=== PATIENT | female | born 1970 | race Caucasian/White ===

== ENCOUNTER 2018-11-05 19:07 | Emergency (ER) | payer OTHER, SELFPAY ==
[2018-10-18 15:07] VITALS: BMI 28.5
[2018-11-05 19:07] VITALS: BP 132/81; PULSE 74; RESP 16; TEMP 36.9; O2SAT 95; BMI 28.8
--- NOTE | 2018-11-05 20:21 | ED.VISSUMM ---
- ER Visit Summary Date of Service: 11/05/18 Chief Complaint: Finger injury History of Present Illness: The patient is a 48 F who was cutting onions when she cut her left index finger. She is unable to control the bleeding. Physical Examination: Afebrile vital signs stable There is a 1 cm x 3 mm superficial skin avulsion to the lateral aspect of the dorsum of the distal left index finger. There is venous bleeding. Emergency Department Course and Treatment: A tourniquet was used to control the bleeding. There is obvious that there is 2 small venules that needed to be cauterized. I attempted cauterized using silver nitrate but the patient jerked her hand away with the first application stating that she would not go through that again. Therefore Gelfoam was applied and dressing on top of that. She is observed. The dressing was taken down but leaving the Gelfoam in place and redressed. It appears that bleeding is controlled. She will be discharged home good local wound care. To remove the Gelfoam in 48 hours. Impression: 1. 1 cm skin avulsion to the left index finger This note was generated with trustedsafe dictation software. It may contain incorrect words, spelling, and punctuation that were not noted in review of the chart prior to signing ED Disposition - Plan for ED Patient: Disposition: Home or Assisted Living Chief Complaint: Laceration Instructions: ED Avulsion Dermal Referrals: Shawanda Shields MD [Primary Care Provider] - As Needed Additional Instructions: Please keep the dressing in place for 48 hours. After which time gently may remove the dressing. At that point you may use bacitracin ointment and Band-Aid. Monitor for infection.
--- NOTE | 2018-11-05 20:21 | ED.RN ---
Dressing taken down to foam; no active bleeding noted. Re-dressed with telfa and gauze wrap. Pt tolerated well.
--- NOTE | 2018-11-05 20:24 | ED.DCSUM_ITS ---
- ER Visit Summary Date of Service: 11/05/18 Chief Complaint: Finger injury History of Present Illness: The patient is a 48 F who was cutting onions when she cut her left index finger. She is unable to control the bleeding. Physical Examination: Afebrile vital signs stable There is a 1 cm x 3 mm superficial skin avulsion to the lateral aspect of the dorsum of the distal left index finger. There is venous bleeding. Emergency Department Course and Treatment: A tourniquet was used to control the bleeding. There is obvious that there is 2 small venules that needed to be cauterized. I attempted cauterized using silver nitrate but the patient jerked her hand away with the first application stating that she would not go through that again. Therefore Gelfoam was applied and dressing on top of that. She is observed. The dressing was taken down but leaving the Gelfoam in place and redressed. It appears that bleeding is controlled. She will be discharged home good local wound care. To remove the Gelfoam in 48 hours. Impression: 1. 1 cm skin avulsion to the left index finger This note was generated with [employer] dictation software. It may contain incorrect words, spelling, and punctuation that were not noted in review of the chart prior to signing ED Disposition - Plan for ED Patient: Disposition: Home or Assisted Living Chief Complaint: Laceration Instructions: ED Avulsion Dermal Referrals: Shawanda Shields MD [Primary Care Provider] - As Needed Additional Instructions: Please keep the dressing in place for 48 hours. After which time gently may remove the dressing. At that point you may use bacitracin ointment and Band- Aid. Monitor for infection.
[2018-11-05 20:34] VITALS: BP 132/92; PULSE 70; RESP 15
== END 2018-11-05 20:35 | disposition home or self-care (01) ==
PROVIDERS: Emergency Provider Emergency Medicine; Family Provider Internal Medicine; PCP Internal Medicine
DX: S61.201A Unspecified open wound of left index finger without damage to nail, initial encounter (principal); W45.8XXA Other foreign body or object entering through skin, initial encounter; Y93.G9 Activity, other involving cooking and grilling; Y92.9 Unspecified place or not applicable; Y99.9 Unspecified external cause status; Z72.0 Tobacco use
CPT/HCPCS: 99282

== ENCOUNTER → 2019-10-22 09:44 | Outpatient (CLI) | payer OTHER, SELFPAY ==
[2019-10-22 09:23] VITALS: BMI 28.8
[2019-10-22 13:06] LABS: Absolute Lymphocyte Count 2.26 X10^3/uL (0.83-4.51); Absolute Neutrophil Count 4.8 X10^3/uL (2.0-7.7); Basophil# 0.05 X10^3/uL; Basophil% 0.6 % (0-1); Eosinophil# 0.12 X10^3/uL; Eosinophils% 1.5 % (0-5); Hematocrit 45.3 % (37-47); Hemoglobin 15.1 g/dL (12.0-15.0); Lymphocyte # 2.26 X10^3/ul (4.0); Lymphocyte % 29.1 % (19-41); Mean Corp Hgb Conc 33.3 g/dL (32-36); Mean Corpuscular Hgb 28.3 pg (27.0-32.0); Mean Platelet Vol. 10.2 fl (6.2-12.0); Monocyte# 0.52 X10^3/uL; Monocyte% 6.7 % (0-10); NRBC Flagged by Analyzer 0 % (0-5); Neutrophil # 4.79 X10^3/uL (2.7-7.7); Neutrophil % 61.7 % (47-70); Platelet Count 284 K/mm3 (150-450); RBC Distribution Width CV 13.2 % (11.6-14.6); RBC Distribution Width SD 40.5 fl (35.1-43.9); Red Blood Count 5.33 M/mm3 (4.2-5.4); White Blood Count 7.8 K/mm3 (4.4-11.0)
[2019-10-22 13:43] LABS: ALB/GLOB Ratio 0.9 RATIO (0.9-2.4); AST(SGOT) 24 U/L (15-37); Alanine Aminotransfer ALT/SGPT 45 U/L (13-56); Albumin, Serum 3.6 g/dL (3.2-5.0); Alkaline Phosphatase 65 U/L (45-117); Anion Gap 5 (5-15); BUN 13 mg/dL (7-18); BUN/Creat Ratio 13.7 RATIO (10-20); Calcium,Total 9.3 mg/dL (8.5-10.1); Chloride 107 mmol/L (98-107); Creatinine, Serum 0.95 mg/dL (0.55-1.02); EST Glomerular Filtration Rate 67 mL/min (>60); Est Glom Filt Rate - Afr Amer 81 mL/min (>60); Globulin 3.8 g/dL (2.2-4.2); Glucose 90 mg/dL (74-106); Potassium 3.8 mmol/L (3.5-5.1); Protein, Total 7.4 g/dL (6.4-8.2); Sodium Level 138 mmol/L (136-145)
== END ==
PROVIDERS: Family Provider Internal Medicine; PCP Internal Medicine; Visit Provider Internal Medicine
DX: K21.9 Gastro-esophageal reflux disease without esophagitis (principal)
CPT/HCPCS: 36415; 80053; 85025

== ENCOUNTER → 2020-02-21 13:00 | Outpatient (CLI) | payer OTHER, SELFPAY ==
[2020-01-14 14:46] VITALS: BMI 28.8
[2020-02-19 17:51] VITALS: BMI 28.8
--- NOTE | 2020-02-21 14:18 | PFTCOMP ---
COMPLETE PULMONARY FUNCTION TEST INTERPRETATION Brief HPI: Patient is a 49 year old female, currently under the care of Dr. Shields, who presents to [facility] for complete pulmonary function tests secondary to diagnosis of dyspnea. Respiratory therapist reports good effort and reproducible results. Interpretation: Forced expiration spirometry shows no large airways obstructive ventilatory defect with an FEV1 of 84% predicted. There is no significant bronchodilator response by strict ATS criteria. Spirograms are of good quality and plateau normally. The respiratory flow volume loop shows a normal pattern. Lung volumes by body plethysmography show a reduced total lung capacity at 3.94 L, 79% predicted. All other lung volumes are reduced symmetrically. Diffusion capacity by carbon monoxide is at the lower limit of normal at 75% predicted. The airway resistance is elevated. No previous pulmonary function tests were available for review. Impression: Mild restrictive ventilatory defect with a symmetric reduction diffusion capacity. Consider chest imaging if not done previously.
== END ==
PROVIDERS: PCP Internal Medicine; Referring Provider Internal Medicine; Visit Provider Internal Medicine
DX: R06.02 Shortness of breath (principal); Z72.0 Tobacco use
CPT/HCPCS: 94060; 94726; 94729

== ENCOUNTER → 2020-02-29 14:47 | Outpatient (CLI) | payer OTHER, SELFPAY ==
[2020-02-22 09:33] VITALS: BMI 28.8
--- NOTE | 2020-02-29 14:49 | CT_ITS ---
STUDY: CT CHEST WITH CONTRAST REASON FOR EXAM: Female, 49 years old. Shortness of breath x 5 months, denies cough or chest pain. Abnormal PFT. RADIATION DOSAGE (If Supplied By Facility): CTDIvol = ( 13.24 ) mGy, DLP = ( 461.18 ) mGycm TECHNIQUE: Transaxial imaging was performed following intravenous administration of IV 100mL Isovue-370. Multiplanar coronal and sagittal images were reformatted. Individualized dose optimization techniques were used for this CT. COMPARISON: 2017 FINDINGS: The lungs are normal. There is no demonstrated pleural abnormality. Normal heart and pericardium. Normal mediastinum. Normal hilar regions. Normal enhanced pulmonary arteries. Normal aorta arch and descending thoracic aorta. Normal osseous structures. Limited cuts through the upper abdomen show a retrocardiac hiatal hernia CT/Chest WITH Contrast IMPRESSION: No acute pulmonary process, no suspicious groundglass opacifications, or suspicious noncalcified mass or nodule Electronically Signed: Luis De La Cruz MD at 16:29 EDT , Service support ,
== END ==
PROVIDERS: PCP Internal Medicine; Referring Provider Internal Medicine; Visit Provider Internal Medicine
DX: R06.02 Shortness of breath (principal); R94.2 Abnormal results of pulmonary function studies
CPT/HCPCS: 71260; Q9967

== ENCOUNTER → 2020-03-04 11:41 | Outpatient (CLI) | payer OTHER, SELFPAY ==
[2020-03-04 08:35] VITALS: BMI 28.8
[2020-03-04 13:40] LABS: Erythrocyte Sedimentation Rate 4 mm/hr (0-20)
[2020-03-04 13:51] LABS: CRP 5.78 mg/L (0.0-3.0); Rheumatoid Factor < 10.0 IU/mL (<15)
[2020-03-06 11:38] LABS: CCP IgG Antibodies 9 units (0-19)
== END ==
PROVIDERS: PCP Internal Medicine; Referring Provider Internal Medicine; Visit Provider Internal Medicine
DX: M19.90 Unspecified osteoarthritis, unspecified site (principal)
CPT/HCPCS: 85652; 86140; 86200; 86431

== ENCOUNTER → 2020-04-01 | Outpatient (CLI) | payer OTHER, SELFPAY ==
[2020-04-01 13:29] VITALS: BMI 29.7
[2020-04-07 20:03] LABS: HPV APTIMA, High Risk Negative (Negative)
== END | disposition home or self-care (01) ==
LOC: LABSPEC 16:00
PROVIDERS: PCP Internal Medicine; Referring Provider Nurse Practitioner Women's Health; Visit Provider Nurse Practitioner Women's Health
DX: Z12.4 Encounter for screening for malignant neoplasm of cervix (principal)
CPT/HCPCS: 87624; 88175; G0145

== ENCOUNTER → 2020-05-13 17:00 | Outpatient (CLI) | payer OTHER, SELFPAY ==
[2019-11-20 15:24] VITALS: BMI 28.8
[2020-04-01 13:29] VITALS: BMI 29.7
--- NOTE | 2020-05-13 16:49 | BI_ITS ---
MAMMOGRAPHY - BILATERAL SCREENING REASON FOR EXAM: Female, 49 years old. Routine annual screening examination. PERTINENT HISTORY: Non-contributory. TECHNIQUE: Digital bilateral breast nicole (3D mammographic acquisition) in the CC and MLO projections. 2-D mediolateral oblique (MLO) and craniocaudad (CC) views of both breasts were obtained. CAD: Full Field Digital Mammography with Computer Added Detection was performed. COMPARISON: Comparison is made with prior outside examination dated 09/20/2013. FINDINGS: Breast Composition: The breasts are heterogeneously dense, which may obscure small masses. There are no dominant masses or suspicious calcifications. Stable benign appearing bilateral axillary lymph nodes. No other significant abnormalities are identified. There has been no significant change since the prior study. BI/SCREEN MAMM (CAD) W/NICOLE BILAT IMPRESSION: Stable bilateral screening mammogram. Yearly follow-up mammogram recommended. (A) ASSESSMENT CATEGORY: BIRADS Category 2: Benign. A letter regarding these results will be sent to the patient by the facility within 30 days. Approximately 10% of breast cancers are not detected by mammography. A normal mammogram should not delay biopsy of a clinically suspicious abnormality. [id number] Electronically Signed: Ilya Alexander, at 8:49 EDT , Service support ,
== END ==
PROVIDERS: PCP Internal Medicine; Referring Provider Internal Medicine; Visit Provider Internal Medicine
DX: Z12.31 Encounter for screening mammogram for malignant neoplasm of breast (principal)
CPT/HCPCS: 77063; 77067

== ENCOUNTER 2020-06-20 06:54 | Emergency (ER) | payer OTHER, SELFPAY ==
[2020-06-19 21:16] VITALS: BMI 29.7
[2020-06-20 06:55] VITALS: BP 128/68; PULSE 70; RESP 16; TEMP 36.2; O2SAT 99; BMI 30.4
--- NOTE | 2020-06-20 07:09 | EKG12_ITS ---
Test Reason : CP Blood Pressure : / mmHG Vent. Rate : 065 BPM Atrial Rate : 065 BPM P-R Int : 156 ms QRS Dur : 076 ms QT Int : 414 ms P-R-T Axes : 056 032 068 degrees QTc Int : 430 ms Normal sinus rhythm with sinus arrhythmia Normal ECG Confirmed by KARISHMA CEDENO, JANAK ([id number]), department editor ROSI VILLANUEVA ([id number]) on 06/23/2020 1:10:16 PM Referred By: BB Confirmed By:JANAK SCHWARZ MD
[2020-06-20] MEDS: Aspirin 81 MG TAB.CHEW 324 MG PO (07:15)
[2020-06-20] MEDS: 0.9% Normal Saline 1,000 ML 150 ML IV (07:15)
[2020-06-20 07:17] LABS: Absolute Lymphocyte Count 2.55 X10^3/uL (0.83-4.51); Absolute Neutrophil Count 4.7 X10^3/uL (2.0-7.7); Basophil# 0.06 X10^3/uL; Basophil% 0.8 % (0-1); Eosinophil# 0.12 X10^3/uL; Eosinophils% 1.5 % (0-5); Hematocrit 42.7 % (37-47); Hemoglobin 14.2 g/dL (12.0-15.0); Lymphocyte # 2.55 X10^3/ul (4.0); Lymphocyte % 32.1 % (19-41); Mean Corp Hgb Conc 33.3 g/dL (32-36); Mean Corpuscular Hgb 27.9 pg (27.0-32.0); Mean Corpuscular Volume 83.9 fL (81-99); Mean Platelet Vol. 9.6 fl (6.2-12.0); Monocyte# 0.54 X10^3/uL; Monocyte% 6.8 % (0-10); NRBC Flagged by Analyzer 0 % (0-5); Neutrophil # 4.66 X10^3/uL (2.7-7.7); Neutrophil % 58.5 % (47-70); Platelet Count 273 K/mm3 (150-450); RBC Distribution Width CV 12.9 % (11.6-14.6); RBC Distribution Width SD 38.7 fl (35.1-43.9); Red Blood Count 5.09 M/mm3 (4.2-5.4)
[2020-06-20 07:19] VITALS: O2SAT 98
--- NOTE | 2020-06-20 07:20 | RAD_ITS ---
STUDY: X-RAY CHEST REASON FOR EXAM: Female, 49 years old. Chest pressure for the last week. Sharp pains on and off this am TECHNIQUE: Single AP portable view of the chest. COMPARISON: Comparison is made with prior study dated 01/13/2012. FINDINGS: EKG electrodes are seen. The lungs are clear and expanded. There is no demonstrated pleural abnormality. Normal size heart. Normal mediastinum and sandra. Normal visualized pulmonary arteries. Normal visualized aortic arch and descending thoracic aorta. Normal visualized thoracic spine. Normal visualized ribs, clavicles, and shoulders. There is no demonstrated abnormality of the visualized soft tissue structures of the upper abdomen. RAD/Chest 1 View (Portable) IMPRESSION: Normal x-ray examination of the chest. Electronically Signed: Ilya Alexander, at 8:14 EDT , Service support ,
--- NOTE | 2020-06-20 07:25 | ED.DCSUM_ITS ---
- ER Visit Summary Date of Service: 06/20/20 Chief Complaint: Chest pain History of Present Illness: The patient is a [address] Shields and Dr. Chacon. She reports she has had shortness of breath on and off since October. States that she has had pulmonary function tests and a CT of her chest. She has never had a stress test or heart catheterization. She reports that she has chest pain that began 1 week ago. It is a continuous pain that waxes and wanes. She describes this as a pressure. It is 8 out of 10 at worst and 6 out of 10 currently. Is worsened by nothing including exertion, breathing, or movement. Is also relieved by nothing. She reports has been more short of breath over the past week. She denies any associated nausea, vomiting, or diaphoresis. She reports she has not been wheezing. Physical Examination: Vitals: Stable. Afebrile. General: Well-nourished and well-developed. Head: Normocephalic atraumatic. Neck: Supple, no lymphadenopathy. No JVD. Nontender. Cardiovascular: Regular rate and rhythm. No murmurs. Respiratory: No respiratory distress. Clear to auscultation bilaterally. Mild tenderness to palpation over the costochondral margin bilaterally. This does not reproduce her pain. Abdominal: Soft, nontender, nondistended, normal bowel sounds. No guarding, rebound, or peritoneal signs. Back: Nontender. Extremities: Nontender, no edema. Skin: Normal color, no rash. Neurologic: Alert and oriented ?3. Cranial nerves II through XII are intact. Normal strength and sensation. Psych: Normal affect. Test Results: EKG is sinus arrhythmia at a rate of 65. There is a T wave inversion in lead III. This is unchanged from 2017. CBC is normal. Chem-7 is normal. Troponin is negative despite 1 week of constant pain. test is negative. Clinical Impression(s) from Imaging Studies Chest X-Ray 06/20/20 07:20 IMPRESSION: Normal x-ray examination of the chest. Electronically Signed: Ilya Alexander, at 8:14 EDT , Service support , Emergency Department Course and Treatment: Patient had an IV placed. She was given fluids at 150 cc/h. She was given aspirin p.o. She refused pain medications and is resting comfortably. Treatment Plan: Patient will be discharged with symptomatic care. Use Tylenol and/or ibuprofen for pain. Follow-up with her primary care physician in 3 to 5 days for another exam. Return to the emergency department for any worsening symptoms. Disposition: To home in improved and stable condition. Impression: 1. Atypical chest pain. 2. GERMAN score of 0. 3. Heart score of 2. This note was generated with [employer] dictation software. It may contain incorrect words, spelling, and punctuation that were not noted in review of the chart prior to signing ED Disposition - Plan for ED Patient: Instructions: ED Chest Pain Atypical Unkn Cause Referrals: Shawanda Shields MD [Primary Care Provider] - 3-5 Days
[2020-06-20 07:30] LABS: Internal QC Validated? YES +Cl - CLEAR BKGD; Pregnancy, Serum, hCG Quali. NEGATIVE Negative
[2020-06-20 07:38] LABS: Anion Gap 8 (5-15); BUN 18 mg/dL (7-18); BUN/Creat Ratio 17.6 RATIO (10-20); Calcium,Total 9.4 mg/dL (8.5-10.1); Chloride 103 mmol/L (98-107); Creatinine, Serum 1.02 mg/dL (0.55-1.02); EST Glomerular Filtration Rate 62 mL/min (>60); Est Glom Filt Rate - Afr Amer 75 mL/min (>60); Estimated Creatinine Clearance 58.88 ml/min; Glucose 101 mg/dL (74-106); Potassium 3.9 mmol/L (3.5-5.1); Sodium Level 140 mmol/L (136-145)
[2020-06-20 07:55] VITALS: PULSE 56; RESP 12; O2SAT 97
[2020-06-20 08:25] VITALS: BP 100/74; PULSE 70; RESP 19; O2SAT 97
[2020-06-20 08:30] VITALS: BP 100/74; PULSE 61; RESP 16; O2SAT 97
== END 2020-06-20 08:32 | disposition home or self-care (01) ==
LOC: ED 07:24
PROVIDERS: Emergency Provider Emergency Medicine; PCP Internal Medicine
DX: R07.89 Other chest pain (principal); R06.02 Shortness of breath; Z87.891 Personal history of nicotine dependence; Z79.899 Other long term (current) drug therapy
CPT/HCPCS: 71045; 80048; 84484; 84703; 85025; 93005; 96360; 99285; J7030; A4216

== ENCOUNTER → 2020-06-30 09:56 | Outpatient (CLI) | payer OTHER, SELFPAY ==
[2020-06-20 06:55] VITALS: BMI 30.4
--- NOTE | 2020-06-30 10:31 | EKG12_ITS ---
Test Reason : SOB CHEST PRESSURE Blood Pressure : / mmHG Vent. Rate : 068 BPM Atrial Rate : 068 BPM P-R Int : 140 ms QRS Dur : 082 ms QT Int : 394 ms P-R-T Axes : 038 039 052 degrees QTc Int : 418 ms Normal sinus rhythm Nonspecific ST abnormality Abnormal ECG Confirmed by KARISHMA CEDENO, JANAK ([id number]), make up editor ROSI VILLANUEVA ([id number]) on 07/01/2020 1:37:49 PM Referred By: Shawanda Shields Confirmed By:JANAK SCHWARZ MD
--- NOTE | 2020-06-30 14:11 | STRESSREP ---
Stress Test Report Exercise stress test. 49-year-old lady with a history of chest pain. Stress protocol: Resting EKG demonstrates normal sinus rhythm with a rate of 61 bpm normal intervals are noted resting blood pressure is 108/78 mmHg. The patient exercised according to regular Jovi protocol for total duration of 9 minutes the maximum heart rate attained was 148 bpm which was 85% of maximum predicted heart rate the maximum workload was 10.1 metabolic equivalents. At rest there were no ST or T wave changes noted to suggest ischemia at peak exercise upsloping ST changes only were noted with no meet the criteria for ischemia. No clinical angina was noted the test was terminated due to leg fatigue. Dyspnea was also present. No arrhythmias were present. Conclusion: Exercise stress test with no EKG criteria for ischemia at a high workload. Excellent functional capacity.
== END ==
PROVIDERS: PCP Internal Medicine; Referring Provider Internal Medicine; Visit Provider Internal Medicine
DX: R06.00 Dyspnea, unspecified (principal); R06.02 Shortness of breath; Z82.49 Family history of ischemic heart disease and other diseases of the circulatory system
CPT/HCPCS: 93005; 93017

== ENCOUNTER → 2020-09-09 09:49 | Outpatient (CLI) | payer OTHER, SELFPAY ==
[2020-03-17 09:59] VITALS: BMI 29.7
--- NOTE | 2020-09-09 16:26 | PFTCOMP_ITS ---
COMPLETE PULMONARY FUNCTION TEST INTERPRETATION Brief HPI: Patient is a 49 year old female, currently under the care of myself, who presents to [facility] for complete pulmonary function tests secondary to diagnosis of abnormal PFT. Respiratory therapist reports good effort and reproducible results. Interpretation: Forced expiration spirometry shows no large airways obstructive ventilatory defect with an FEV1 of 91% predicted. There is no significant bronchodilator response by strict ATS criteria. Spirograms are of good quality and plateau normally. The respiratory flow volume loop shows a normal pattern. Lung volumes by body plethysmography show a normal total lung capacity at 5.27 L, 106% predicted. All other lung volumes are within normal limits. Diffusion capacity by carbon monoxide is at the lower limit of normal at 66% predicted. The airway resistance is slightly elevated. Compared to previous pulmonary function tests from 02/21/2020, there is been a significant improvement in total lung capacity by 34%. Impression: Grossly normal pulmonary function tests with marginal diffusion capacity, possibly consistent with early pulmonary vascular disease.
== END ==
PROVIDERS: PCP Internal Medicine; Referring Provider Internal Medicine Critical Care Medicine; Visit Provider Internal Medicine Critical Care Medicine
DX: R94.2 Abnormal results of pulmonary function studies (principal); K21.9 Gastro-esophageal reflux disease without esophagitis; K44.9 Diaphragmatic hernia without obstruction or gangrene
CPT/HCPCS: 94060; 94726; 94729

== ENCOUNTER → 2020-09-20 09:48 | Outpatient (CLI) | payer OTHER, SELFPAY ==
--- NOTE | 2020-09-20 09:50 | CT_ITS ---
STUDY: CT CHEST WITHOUT CONTRAST REASON FOR EXAM: Female, 49 years old. LUNG NODULE FOUND ON PRIOR CT SCAN. RADIATION DOSAGE (If Supplied By Facility): CTDIvol = ( 10.86 ) mGy, DLP = ( 396.06 ) mGycm TECHNIQUE: Transaxial imaging was performed without the administration of intravenous contrast material. Multiplanar coronal and sagittal images were reformatted. Individualized dose optimization techniques were used for this CT. COMPARISON: 02/29/2020 FINDINGS: 5.4 mm noncalcified nodule in the right middle lobe on image 69 series 4 and image 100 series 601 is stable. No new pulmonary nodule. There is no demonstrated pleural abnormality. Normal heart and pericardium. Normal mediastinum. Normal hilar regions. Normal unenhanced pulmonary arteries. Normal aorta arch and descending thoracic aorta. Normal osseous structures. There is no demonstrated abnormality of the visualized upper abdomen. CT/Chest without Contrast IMPRESSION: 1. Stable right middle lobe nodule. No new or enlarging pulmonary nodule. No specific imaging follow-up recommendations according to FLEISCHNER Society standards. Electronically Signed: Larry Hatch MD ([place]) at 15:34 EST , Service support ,
== END ==
PROVIDERS: PCP Internal Medicine; Referring Provider Internal Medicine Critical Care Medicine; Visit Provider Internal Medicine Critical Care Medicine
DX: R91.1 Solitary pulmonary nodule (principal)
CPT/HCPCS: 71250

== ENCOUNTER 2021-11-09 07:20 | Outpatient (CLI) | payer OTHER, SELFPAY ==
--- NOTE | 2021-11-09 07:26 | CT_ITS ---
STUDY: CT CHEST WITHOUT CONTRAST REASON FOR EXAM: Female, 51 years old. nodule follow up RADIATION DOSAGE (If Supplied By Facility): CTDIvol = ( 10.93 ) mGy, DLP = ( 368.79 ) mGycm TECHNIQUE: Transaxial imaging was performed without the administration of intravenous contrast material. Multiplanar coronal and sagittal images were reformatted. Individualized dose optimization techniques were used for this CT. COMPARISON: 09/20/2020, 02/29/2020 FINDINGS: 5.4 mm noncalcified nodule in the right middle lobe on image 55 series 4. No new pulmonary nodule. There is no demonstrated pleural abnormality. Normal heart and pericardium. Normal mediastinum. Normal hilar regions. Normal unenhanced pulmonary arteries. Normal aorta arch and descending thoracic aorta. Normal osseous structures. Diminished density of the liver compatible with hepatic steatosis. Small hiatal hernia. CT/Chest without Contrast IMPRESSION: 1. Stable right middle lobe nodule (since 02/29/2020). No new or enlarging pulmonary nodule. Fleischner Society Guidelines (MacMahon, et al. Radiology 2017; 284(1):228-43) suggest that no further follow-up is necessary for patients with low or high risk of malignancy. Electronically Signed: Larry Hatch MD ([place]) at 10:00 EST Reading Location ID and State: [place] , Service support ,
== END 2021-11-09 23:59 | disposition short-term general hospital (02) ==
PROVIDERS: PCP Internal Medicine; Referring Provider Nurse Practitioner Acute Care; Visit Provider Nurse Practitioner Acute Care
DX: R91.1 Solitary pulmonary nodule (principal)
CPT/HCPCS: 71250

== ENCOUNTER 2022-11-24 12:50 | Inpatient (IN) | payer OTHER, SELFPAY ==
[2022-11-24 12:51] VITALS: BP 87/62; PULSE 78; RESP 16; TEMP 36.4; O2SAT 100; BMI 29.2
--- NOTE | 2022-11-24 13:04 | EDS_ITS ---
HPI HPI - GI History of Present Illness Chief Complaint: Abd Pain Detail of Chief Complaint: Bilateral lower abdominal pain, constipation, lightheadedness Informant: patient and friend Abdominal Pain/Flank Pain Onset: Days Context: Sudden Onset Timing: Continuous Quality: Aching Location: RLQ and LLQ Maximum Severity: Severe Worsened by: Movement Relieved by: Nothing Nausea/Vomiting/Emesis GI Symptom: Positive for Nausea and Vomiting Diarrhea/Melena/Hematochezia GI Symptom: Positive for Hematochezia (Last week); Negative for Diarrhea or Melena Associated Symptoms Associated Symptoms: Negative for Dysuria, Frequency, Hematuria or Urgency LMP: Does not menstruate Narrative Narrative: Patient is a 52-year-old woman with history of hiatal hernia, anal pain who presents with bilateral lower abdominal pain. She states last week she had blood in her stool. She said it was tarry at 1 point. She denies history of diverticulosis or diverticulitis. She denies history of peptic ulcer disease. She denies hematemesis or coffee-ground emesis. She does endorse temperature of 100.7. Patient denies headache, visual, ocular auditory symptoms. Patient denies cardiac or respiratory symptoms. Patient denies intolerance to greasy or fried foods. She has had no abdominal surgery. She does not recall last time she had a normal bowel movement. She denies dysuria, frequency, urgency or hematuria. She denies history of renal ureterolithiasis. She denies family history of renal or ureterolithiasis. She denies history of trauma. Prior similar symptoms: No Recent Illness/Hospitalization: No PFSH PFSH Medical History Abnormal Pap smear of cervix Anal or rectal pain Arthritis COVID-19 vaccine series completed Dermatitis Dermatitis Encounter for preventative adult health care examination Frequent headaches Mood swings Multiple joint pain Shortness of breath Tobacco abuse Upper respiratory infection Home Medications fluoxetine 20 mg capsule See Rx Instructions .Route .COMPLEX #90 caps 06/08/22 [Rx Last Taken Unknown] fluticasone furoate 100 mcg-vilanterol 25 mcg/dose inhalation powder (Breo Ellipta) 1 inh inhalation Q24H #60 ea 06/10/22 [Rx Last Taken Unknown] promethazine 12.5 mg tablet 12.5 mg PO TID PRN nausea and vomiting #30 tabs 09/23/22 [Rx Last Taken Unknown] sumatriptan succinate 25 mg tablet (Imitrex) See Rx Instructions PO .COMPLEX #20 tabs 09/23/22 [Rx Last Taken Unknown] clotrimazole-betamethasone 1 %-0.05 % topical cream 1 applic topical BID 2 weeks #45 grams 11/10/22 [Rx Last Taken Unknown] prednisone 10 mg tablet See Rx Instructions PO QDAY #30 tabs 11/10/22 [Rx Last Taken Unknown] omeprazole 20 mg capsule,delayed release 20 mg PO DAILY #90 caps 11/24/22 [Rx Last Taken Unknown] Allergy/AdvReac Type Severity Reaction Status Date / Time Opioids - Morphine Analogues Allergy Severe passed out Verified 11/10/22 16:23 Family History Mother Arthritis Father Heart disease Hypertension Hypercholesteremia Myocardial infarction Blood clot in vein Diabetes Surgical History Hx of tubal ligation S/P LEEP Social History Smoking Status: Former smoker quit date: 10/10/18 Tobacco: How many years used: 25 second hand exposure: No alcohol intake: current alcohol intake frequency: a few times a month Alcohol type: wine substance use type: does not use caffeine: Yes what type of physical activity do you participate in: walking frequency: 1-2 times per week duration: 30-45 minutes/day seatbelt use: always do you feel safe at home: Yes 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 [employer] ROS ROS ED Constitutional Constitutional ED: Reports chills and fever(s); Denies sweats or weight loss ENT ENT ED: Denies ear pain, rhinorrhea or sore throat Cardiovascular Cardiovascular: Denies chest pain, orthopnea, palpitations, paroxysmal nocturnal dyspnea or racing heartbeat Respiratory/Chest Respiratory/Chest: Denies cough, dyspnea, dyspnea on exertion, orthopnea or paroxysmal nocturnal dyspnea Gastrointestinal Gastrointestinal: Reports abdominal pain, nausea and vomiting; Denies constipation or diarrhea Genitourinary Genitourinary ED: Denies dysuria, hematuria or urinary frequency Musculoskeletal Musculoskeletal: Denies arthralgias, back pain, myalgias or neck pain Neurologic Neurologic: Denies paresthesias or weakness Psychiatric Psychiatric: Denies anxiety or depression Endocrine Endocrinology: Denies polydipsia, polyphagia or polyuria Hematologic/Lymphatic Hematologic/Lymphatic: Denies easy bleeding or easy bruising EXAM Physical Exam Const Vital Signs: 11/24/22 12:51 11/24/22 13:25 Temperature 97.5 F L Temperature Source Temporal Pulse Rate 78 Respiratory Rate 16 Blood Pressure 87/62 L 121/80 H Blood Pressure Mean 70 93 Pulse Ox 100 98 Oxygen Delivery Method Room Air Room Air Positive well nourished, well developed and obese General Appearance ED: well developed and pallor Nutritional Appearance: obese HEENT Reports TM's clear and dry mucous membranes HEENT Narrative: Nares patent. Posterior pharynx unremarkable. normocephalic and atraumatic Tympanic Membrane ED: Yes TM's clear Mouth ED: Yes dry mucous membranes Mouth: dry mucous membranes Eyes PERRL and EOMs intact bilaterally General Eye ED: Negative for pale conjunctiva or scleral icterus Neck no lymphadenopathy, supple and no JVD Resp normal respiratory effort and clear to auscultation bilaterally Cardio regular rate, regular rhythm, S1 normal heart sound, S2 normal heart sound and no murmurs GI no masses; Negative for non-tender or non-distended GI Narrative: Abdomen is tympanitic to percussion. She complains of percussion tenderness right and left lower quadrant. Rectal exam revealed no fissures, fistulas or hemorrhoids. She complained of significant discomfort. Stool is brown. There is no mucus or blood noted. Inspection: abdominal distention Auscultation: hypoactive bowel sounds Palpation: soft and rebound tenderness present other (Right and left lower quadrant.); Negative for tender, guarding, rigid, hepatomegaly, splenomegaly, hernia, mass or pulsatile mass Back/Spine no CVA tenderness Thoracic Spine / Upper Back: Negative for thoracic spinal tenderness Lumbar Spine / Lower Back: Negative for lumbar spinal tenderness Extremity full ROM General Extremety ED: Negative for edema or tenderness General Extremity: Negative for edema Neuro CN's II-XII intact bilaterally, moves all extremities and no sensory deficits noted Sensorium / Orientation: alert Psych Mood & Affect: anxious Skin no wounds General Skin Exam: pallor; Negative for jaundice Lesions: No no lesions Rashes: No no rashes MDM MDM MDM Narrative Medical decision making narrative: With reported temperature at home of 100.7 hypotension and hypothermia need to consider infectious cause. With reported tarry stool 1 needs entertain possibility of GI bleed however patient clinically does not appear anemic since her conjunctive is pink. Since she is hypotensive 1 L of normal saline was ordered. Since she reported a vagal event with unresponsiveness due to morphine she was treated with Dilaudid. She also received Zofran for her nausea. Work- up included CBC to assess white count and H&H. Basic metabolic panel to assess renal function and anion gap. Hepatic and lipase to evaluate for possible liver or biliary pathology. UA was obtained as well. With patient having peritoneal findings fever hypotension will obtain CT of the abdomen with IV contrast. Also will administer dose of Zosyn since she has no allergies to antibiotics. Spoke with the hospitalist . She states she would follow patient but because of the perforation needs to be admitted to surgery. Spoke with surgeon on-call. She requested a CAT scan of the abdomen pelvis without contrast to reevaluate the intussusception. Patient is having significant pain again. Patient to be admitted to Dr. Haas service. Lab Data Attestation: I reviewed the patient's lab results. Lab results narrative: White count is elevated with shift. There is no bandemia. H&H is normal. Elec trolyte panel is remarked for slight elevation of creatinine of 1.03. GFR is 60. Lactate is normal. Total bili is elevated 1.1 with a direct of 0.52. AST and ALT are slightly elevated 46 and 81 respectively. Lipase is normal. The elevated transaminase are nonspecific. Doubt biliary or hepatic disease since patient's pain is right and left lower quadrant. Labs: Laboratory Results - last 24 hr 11/24/22 11/24/22 11/24/22 13:10 13:10 13:10 WBC 13.5 H RBC 5.53 H Hgb 15.0 Hct 46.5 MCV 84.1 MCH 27.1 MCHC 32.3 RDW Std Deviation 43.2 RDW Coeff of Shelton 14.1 Plt Count 246 MPV 9.1 Immature Gran % (Auto) 0.600 Neut % (Auto) 77.2 H Lymph % (Auto) 14.3 L Stewart % (Auto) 7.1 Eos % (Auto) 0.5 Baso % (Auto) 0.3 Absolute Neuts (auto) 10.4 H Absolute Lymphs (auto) 1.93 Nucleated RBC % 0 Sodium 136 Potassium 4.0 Chloride 102 Carbon Dioxide 27.0 Anion Gap 7 BUN 17 Creatinine 1.03 H Estim Creat Clear Calc 56.43 Est GFR (MDRD) Af Amer 73 Est GFR (MDRD) Non-Af 60 BUN/Creatinine Ratio 16.5 Glucose 101 Lactic Acid 1.2 Calcium 9.0 Total Bilirubin 1.10 H Direct Bilirubin 0.52 H AST 46 H ALT 81 H Alkaline Phosphatase 85 Total Protein 7.5 Albumin 3.2 Globulin 4.3 H Lipase 127 Radiography Diagnostic Testing: Clinical Impression(s) from Imaging Studies Abdomen/Pelvis CT 11/24/22 13:12 IMPRESSION: Proximal small bowel obstruction with thickened bowel and by the KINEVAC is down to the left midabdomen where there is a circumferential wall thickening of the affected small bowel loop. A mass lesion as well as possible intussusception should BE ruled out. Acute sigmoid diverticulitis with microperforation. Small amount of free fluid is seen in the cul-de-sac. Fatty attrition of the liver. N.B. : The above Results were Read Back by Ilya Alexander MD to Jay Richardson MD, and understanding confirmed on 11/24/2022 14:21:40 (ET). Electronically Signed: Ilya Alexander MD at 14:22 EST , ADDENDUM: 11/24/22 1429 IMPRESSION: Proximal small bowel obstruction with thickened bowel and by the KINEVAC is down to the left midabdomen where there is a circumferential wall thickening of the affected small bowel loop. A mass lesion as well as possible intussusception should BE ruled out. Acute sigmoid diverticulitis with microperforation. Small amount of free fluid is seen in the cul-de-sac. Fatty attrition of the liver. N.B. : The above Results were Read Back by Ilya Alexander MD to Jay Richardson MD, and understanding confirmed on 11/24/2022 14:21:40 (ET). Electronically Signed: Ilya Alexander MD at 14:22 EST , Abdomen/Pelvis CT 11/24/22 15:03 IMPRESSION: No small bowel obstruction is seen at this time. Persistent acute sigmoid diverticulitis with microperforation and inflammatory changes seen in the pelvis. Stable small cyst in the left ovary. Electronically Signed: Ilya Alexander MD at 15:29 EST , The CT was discussed with radiologist. He informed me of the small bowel abnormality and seen on images 41 through 53 on axial cuts. In light of this finding the surgeon on-call was paged Dr. Thompson. Hospitalist was paged as well since patient has diverticulitis with microperforation. Repeat CAT scan does not reveal evidence of intussusception or partial small bowel obstruction. Therefore NG was not placed. Rhythm Strip Rhythm Strip: Sinus Rhythm Rate: 80 Ectopy: None EKG Initial EKG: Attestation: I personally reviewed and interpreted this EKG as follows: Interpretation: Sinus Rhythm (To 75. The EKG is normal. [place] interval is 128 ms. Cures duration 74 ms. QT duration 354 ms. [place] is normal. EKG is unchanged from June 30, 2020) Prior: Unchanged (June 30, 2020) Treatment and Re-Evaluation Narrative: When patient was reassessed at 1338. Blood pressure had improved after fluid bolus total 120/80. Patient states her pain improved after receiving IV Dilaudid. Her nausea also improved after receiving IV Zofran. Patient and were informed of CAT scan results and need for hospitalization. She was informed that surgeon was paged as well as the admitting hospitalist. Critical Care Time Critical Care Time: Yes Critical care time (excluding procedures): 30-74 minutes (32), Including time spent: (History, physical, documentation, interpretation of laboratory results and treatment for hypotension and peritonitis. Consultation with admitting physician surgeon.), Discussing w/Patient &/or Family/Small Boat Engineer (Patient, friend and ), Discussing w/Consultants (Hospitalist and surgeon) and Arranging Admission or Transfer Discharge Plan Dx/Rx/DC Orders Clinical Impression: Diverticulitis of colon with perforation, Hiatal hernia with gastroesophageal reflux, Enteric intussusception, Acute hypotension Disposition Disposition: Acute Care [facility]
[2022-11-24] MEDS: 0.9% Normal Saline 1,000 ML 1000 ML IV (13:11)
[2022-11-24] MEDS: Ondansetron 4 MG/2 ML Vial IV (13:11)
--- NOTE | 2022-11-24 13:12 | CT_ITS ---
STUDY: CT ABDOMEN AND PELVIS WITH CONTRAST REASON FOR EXAM: Female, 52 years old. Peritonitis, hypotension, fever RADIATION DOSAGE (If Supplied By Facility): CTDIvol = ( 19.12 ) mGy, DLP = ( 1075.22 ) mGycm TECHNIQUE: Transaxial images were obtained from the dome of the diaphragm to the symphysis pubis with oral contrast. Oral and amp; IV and amp; 100mL Isovue-300 was administered. Sagittal and coronal images were reconstructed. Individualized dose optimization techniques were used for this CT. COMPARISON: None. FINDINGS: Mild degree of increased markings at the lung bases suggestive of atelectasis. The visualized portions of the heart are within normal limits. There is decreased attenuation of the liver consistent with steatosis. Normal gallbladder and extrahepatic biliary system. Normal spleen. Normal pancreas. Normal bilateral adrenal glands. Normal right kidney. Normal left kidney. There is a small hiatal hernia. There is evidence of proximal small bowel obstruction with thickened bowel wall and valvulae conniventes down to the left midabdomen where there is circumferential wall thickening of the affected small bowel loop as seen on axial image #44. This may represent either a mass lesion versus a localized intussusception. There is diverticulosis, with thickening of the colon wall, and pericolonic inflammation changes consistent with acute diverticulitis. Tiny amount of air is seen along the mesenteric side of the sigmoid mesentery. The appendix is visualized and appears normal. There is atherosclerotic calcification of the abdominal aorta, without a demonstrated aneurysm. Normal inferior vena cava. Normal retroperitoneum. Normal urinary bladder. 2 cm cyst in the left ovary. Small amount of free fluid in the cul-de-sac. Normal abdominal wall. Normal osseous structures. CT/Abdomen/Pelvis W IV Cont ONLY IMPRESSION: Proximal small bowel obstruction with thickened bowel and by the KINEVAC is down to the left midabdomen where there is a circumferential wall thickening of the affected small bowel loop. A mass lesion as well as possible intussusception should BE ruled out. Acute sigmoid diverticulitis with microperforation. Small amount of free fluid is seen in the cul-de-sac. Fatty attrition of the liver. N.B. : The above Results were Read Back by Ilya Alexander MD to Jay Richardson MD, and understanding confirmed on 11/24/2022 14:21:40 (ET). Electronically Signed: Ilya Alexander MD at 14:22 EST ,
[2022-11-24] MEDS: HYDROmorphone 1 MG/ML Syringe IV ×2 (13:13→15:38)
[2022-11-24 13:25] VITALS: BP 121/80; O2SAT 98
[2022-11-24 13:26] LABS: Absolute Lymphocyte Count 1.93 X10^3/uL (0.83-4.51); Absolute Neutrophil Count 10.4 X10^3/uL (2.0-7.7); Basophil# 0.04 X10^3/uL; Basophil% 0.3 % (0-1); Eosinophil# 0.07 X10^3/uL; Eosinophils% 0.5 % (0-5); Hematocrit 46.5 % (37-47); Lymphocyte # 1.93 X10^3/ul (0.83-4.51); Lymphocyte % 14.3 % (19-41); Mean Corp Hgb Conc 32.3 g/dL (32-36); Mean Corpuscular Hgb 27.1 pg (27.0-32.0); Mean Corpuscular Volume 84.1 fL (81-99); Mean Platelet Vol. 9.1 fl (6.2-12.0); Monocyte# 0.95 X10^3/uL; Monocyte% 7.1 % (0-10); NRBC Flagged by Analyzer 0 % (0-5); Neutrophil % 77.2 % (47-70); Platelet Count 246 K/mm3 (150-450); RBC Distribution Width CV 14.1 % (11.6-14.6); RBC Distribution Width SD 43.2 fl (35.1-43.9); Red Blood Count 5.53 M/mm3 (4.2-5.4); White Blood Count 13.5 K/mm3 (4.4-11.0)
[2022-11-24 13:39] LABS: AST(SGOT) 46 U/L (15-37); Alanine Aminotransfer ALT/SGPT 81 U/L (13-56); Albumin, Serum 3.2 g/dL (3.2-5.0); Alkaline Phosphatase 85 U/L (45-117); Anion Gap 7 (5-15); BUN 17 mg/dL (7-18); BUN/Creat Ratio 16.5 RATIO (10-20); Bilirubin, Direct 0.52 mg/dL (0.00-0.30); Chloride 102 mmol/L (98-107); Creatinine, Serum 1.03 mg/dL (0.55-1.02); EST Glomerular Filtration Rate 60 mL/min (>60); Est Glom Filt Rate - Afr Amer 73 mL/min (>60); Estimated Creatinine Clearance 56.43 ml/min; Globulin 4.3 g/dL (2.2-4.2); Glucose 101 mg/dL (74-106); Lipase 127 U/L (73-393); Protein, Total 7.5 g/dL (6.4-8.2); Sodium Level 136 mmol/L (136-145)
[2022-11-24 13:46] LABS: Lactic Acid 1.2 mmol/L (0.4-1.9)
--- NOTE | 2022-11-24 15:02 | HP.PCM.SX_ITS ---
HPI - General General Date of Admission: 11/24/22 HPI Narrative AZAEL HURTADO, is a 52 F who presents to ER due to lower abdominal pain. Patient states this started yesterday and continued to get worse. Patient did have nausea and vomiting. Patient states previous that she had a sore throat and thought she was just having a cold. Patient never had previous diverticulitis. Patient last colonoscopy was in 2019 patient states it was normal. Patient CT abdomen pelvis question for some small bowel introsusception as well as microperforation sigmoid colon with air bubbles. WBC 13.5. Patient did get Zosyn IV in ER. [facility] Medical History Abnormal Pap smear of cervix Anal or rectal pain Arthritis COVID-19 vaccine series completed Dermatitis Dermatitis Encounter for preventative adult health care examination Frequent headaches Mood swings Multiple joint pain Shortness of breath Tobacco abuse Upper respiratory infection Home Medications fluoxetine 20 mg capsule See Rx Instructions .Route .COMPLEX #90 caps 06/08/22 [Rx Last Taken Unknown] fluticasone furoate 100 mcg-vilanterol 25 mcg/dose inhalation powder (Breo Rajni user acceptance tester) 1 inh inhalation Q24H #60 ea 06/10/22 [Rx Last Taken Unknown] promethazine 12.5 mg tablet 12.5 mg PO TID PRN nausea and vomiting #30 tabs 09/23/22 [Rx Last Taken Unknown] sumatriptan succinate 25 mg tablet (Imitrex) See Rx Instructions PO .COMPLEX #20 tabs 09/23/22 [Rx Last Taken Unknown] clotrimazole-betamethasone 1 %-0.05 % topical cream 1 applic topical BID 2 weeks #45 grams 11/10/22 [Rx Last Taken Unknown] prednisone 10 mg tablet See Rx Instructions PO QDAY #30 tabs 11/10/22 [Rx Last Taken Unknown] omeprazole 20 mg capsule,delayed release 20 mg PO DAILY #90 caps 11/24/22 [Rx Last Taken Unknown] Allergy/AdvReac Type Severity Reaction Status Date / Time Opioids - Morphine Analogues Allergy Severe passed out Verified 11/10/22 16:23 Family History Mother Arthritis Father Heart disease Hypertension Hypercholesteremia Myocardial infarction Blood clot in vein Diabetes Surgical History Hx of tubal ligation S/P LEEP Social History Smoking Status: Former smoker quit date: 10/10/18 Tobacco: How many years used: 25 second hand exposure: No alcohol intake: current alcohol intake frequency: a few times a month Alcohol type: wine substance use type: does not use caffeine: Yes what type of physical activity do you participate in: walking frequency: 1-2 times per week duration: 30-45 minutes/day seatbelt use: always do you feel safe at home: Yes additional social history: [employer]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 [employer] Constitutional Constitutional: Reports anorexia Eyes Eyes: Denies change in vision ENT HEENT: Denies hearing loss Cardiovascular Cardiovascular: Denies palpitations Respiratory/Chest Respiratory/Chest: Denies productive cough Gastrointestinal Gastrointestinal: Reports abdominal pain, nausea and vomiting Genitourinary Genitourinary: Denies dysuria Musculoskeletal Musculoskeletal: Denies joint swelling Integumentary Integumentary: Denies rash Neurologic Neurologic: Denies focal weakness Psychiatric Psychiatric: Denies depression Hematologic/Lymphatic Hematologic/Lymphatic: Denies easy bleeding Vital Signs Vital Signs Vital Signs: 11/24/22 12:51 11/24/22 13:25 Temperature 97.5 F L Temperature Source Temporal Pulse Rate 78 Respiratory Rate 16 Blood Pressure 87/62 L 121/80 H Blood Pressure Mean 70 93 Pulse Ox 100 98 Oxygen Delivery Method Room Air Room Air Weight Weight: 170 lb Body Mass Index (BMI) 29.2 Physical Exam Const alert, oriented x3 and no apparent distress HEENT normocephalic and head/scalp atraumatic Resp normal respiratory effort Cardio regular rate GI soft to palpation; Negative for non-distended Palpation: tender LLQ (Most in the left lower quadrant) and RLQ and guarding LLQ (Voluntary) Extremity no clubbing, cyanosis or edema Neuro CN's II-XII intact bilaterally Psych mental status grossly normal Results Lab / Micro Data Result Diagrams: 11/25/22 05:58 11/25/22 05:58 Labs: Laboratory Results - last 24 hr 11/24/22 13:10: WBC 13.5 H, RBC 5.53 H, Hgb 15.0, Hct 46.5, MCV 84.1, MCH 27.1, MCHC 32.3, RDW Std Deviation 43.2, RDW Coeff of Shelton 14.1, Plt Count 246, MPV 9.1, Immature Gran % (Auto) 0.600, Neut % (Auto) 77.2 H, Lymph % (Auto) 14.3 L, [place] % (Auto) 7.1, Eos % (Auto) 0.5, Baso % (Auto) 0.3, Absolute Neuts (auto) 10.4 H, Absolute Lymphs (auto) 1.93, Nucleated RBC % 0 11/24/22 13:10: Sodium 136, Potassium 4.0, Chloride 102, Carbon Dioxide 27.0, Anion Gap 7, BUN 17, Creatinine 1.03 H, Estim Creat Clear Calc 56.43, Est GFR (MDRD) Af Amer 73, Est GFR (MDRD) Non-Af 60, BUN/Creatinine Ratio 16.5, Glucose 101, Calcium 9.0, Total Bilirubin 1.10 H, Direct Bilirubin 0.52 H, AST 46 H, ALT 81 H, Alkaline Phosphatase 85, Total Protein 7.5, Albumin 3.2, Globulin 4.3 H, Lipase 127 11/24/22 13:10: Lactic Acid 1.2 Rhythm Strip Rhythm Strip: Sinus Rhythm Rate: 80 Ectopy: None Radiology Impression Abdomen/Pelvis CT 11/24/22 13:12 IMPRESSION: Proximal small bowel obstruction with thickened bowel and by the KINEVAC is down to the left midabdomen where there is a circumferential wall thickening of the affected small bowel loop. A mass lesion as well as possible intussusception should BE ruled out. Acute sigmoid diverticulitis with microperforation. Small amount of free fluid is seen in the cul-de-sac. Fatty attrition of the liver. N.B. : The above Results were Read Back by Ilya Alexander MD to Jay Richardson MD, and understanding confirmed on 11/24/2022 14:21:40 (ET). Electronically Signed: Ilya Alexander MD at 14:22 EST , ADDENDUM: 11/24/22 1429 IMPRESSION: Proximal small bowel obstruction with thickened bowel and by the KINEVAC is down to the left midabdomen where there is a circumferential wall thickening of the affected small bowel loop. A mass lesion as well as possible intussusception should BE ruled out. Acute sigmoid diverticulitis with microperforation. Small amount of free fluid is seen in the cul-de-sac. Fatty attrition of the liver. N.B. : The above Results were Read Back by Ilya Alexander MD to Jay Richardson MD, and understanding confirmed on 11/24/2022 14:21:40 (ET). Electronically Signed: Ilya Alexander MD at 14:22 EST , Assessment & Plan Assessment/Plan (1) Diverticulitis of colon with perforation: (2) Enteric intussusception: PLAN: May be artifact per CT Will repeat CT abdomen pelvis PLAN: Plan We will treat conservatively with n.p.o./IV fluids. Discussed with patient and her that patient's pain got worse or fevers or increased white blood count may consider more emergent surgery. IV Zosyn Pain control Currently no need for an NG as her stomach is not enlarged on CAT scan. I do believe the introsusception is just artifact from CAT scan and repeat CT will likely show it has resolved --addendum: Repeat CT abdomen pelvis do not show any evidence of intussusception. Barbie Thompson M.D. Pager: [phone] [facility] [address] [place] [address], [facility], [address] [place] [address] Office: [phone]
--- NOTE | 2022-11-24 15:03 | CT_ITS ---
STUDY: CT ABDOMEN AND PELVIS WITHOUT CONTRAST REASON FOR EXAM: Female, 52 years old. Reevaluation of intussusception RADIATION DOSAGE (If Supplied By Facility): CTDIvol = ( 10.93 ) mGy, DLP = ( 557.18 ) mGycm TECHNIQUE: Transaxial images were obtained from the dome of the diaphragm to the symphysis pubis without oral contrast, and without intravenous contrast. Sagittal and coronal images were reconstructed. Individualized dose optimization techniques were used for this CT. COMPARISON: Comparison is made with prior study done earlier today. FINDINGS: Stable mild degree of bibasilar atelectasis. The visualized portions of the heart are within normal limits. There is decreased attenuation of the liver consistent with steatosis. Normal gallbladder and extrahepatic biliary system. Normal spleen. Normal pancreas. Normal bilateral adrenal glands. Normal right kidney. Normal left kidney. Normal visualized stomach. The previously seen proximal small bowel dilatation and abnormal appearance of a small bowel loop in the left mid abdomen has resolved. There is diverticulosis, with thickening of the colon wall, and pericolonic inflammation changes consistent with acute diverticulitis. The appendix is visualized and appears normal. Normal abdominal aorta. Normal inferior vena cava. Normal retroperitoneum. Normal urinary bladder. Normal abdominal wall. Normal osseous structures. CT/Abdomen/Pelvis without Cont IMPRESSION: No small bowel obstruction is seen at this time. Persistent acute sigmoid diverticulitis with microperforation and inflammatory changes seen in the pelvis. Stable small cyst in the left ovary. Electronically Signed: Ilya Alexander MD at 15:29 EST ,
[2022-11-24 15:25] VITALS: BP 144/81; PULSE 81; RESP 16; TEMP 37.3; O2SAT 99
--- NOTE | 2022-11-24 15:27 | PN.HOSP_ITS ---
Reason for Visit Reason for Visit: Consult for medical management: Subjective Subjective 52-year-old female with past medical history of asthma/GERD who comes in with a 3-day history of abdominal pain, feeling unwell and a 1 day history of fever. Patient stated that she had sore throat and upper respiratory type illness 3 days prior to admission. She stated at home the next day but she generally felt weak. She also noted that she has constipation. A day prior to admission, she started having fever with chills. She took a laxative with no effect. Today she started having left lower quadrant pain that was cramping/dull in nature and persistent. It was so severe that was worse with movement. She called her friend to bring her to the emergency room. Patient stated that she had an episode of bright red bleeding about 2 weeks ago. At the time she did not have any abdominal cramps. She has been having a right lower extremity rash that appears to be improving with prednisone course as well as topical steroid. In the emergency room, her blood pressure initially was 87/62, heart rate 78, respiratory rate 16, temperature 97.5 F, oxygen sat 100% on room air. WBC 13.5, hemoglobin 15.0, platelets 246. CMP remarkable for BUN of 17, creatinine 1.03, total bilirubin 1.1, direct bilirubin 0.52, AST and ALT minimally elevated at 46 and 81 respectively. Albumin 3.[address] of the abdomen showed proximal small bowel obstruction with taking bowel, probable intussusception to, acute sigmoid diverticulitis with microperforation, fatty liver. Repeat CT scan 2 hours later showed resolution of proximal small bowel dilatation with acute diverticulitis with microperforation. Objective Data Objective Data Vital Signs: Vital Signs Temp Pulse Resp BP Pulse Ox O2 Del Method 98 F 81 16 129/76 H 99 Room Air 11/24/22 15:25 11/24/22 15:25 11/24/22 15:25 11/24/22 15:25 11/24/22 15:25 11/24/22 15:25 Oxygen Delivery Method Room Air Weight: 77.111 kg Body Mass Index (BMI) 29.2 Intake & Output: Intake and Output for Last 24 Hours 11/22/22 11/23/22 11/24/22 23:59 23:59 23:59 Intake Total 1100 / 1100 Balance 1100 / 1100 Lab / Micro Data Result Diagrams: 11/24/22 13:10 11/24/22 13:10 Labs: Laboratory Results - last 24 hr 11/24/22 13:10: WBC 13.5 H, RBC 5.53 H, Hgb 15.0, Hct 46.5, MCV 84.1, MCH 27.1, MCHC 32.3, RDW Std Deviation 43.2, RDW Coeff of [place] 14.1, Plt Count 246, MPV 9.1, Immature Gran % (Auto) 0.600, Neut % (Auto) 77.2 H, Lymph % (Auto) 14.3 L, [place] % (Auto) 7.1, Eos % (Auto) 0.5, Baso % (Auto) 0.3, Absolute Neuts (auto) 1 0.4 H, Absolute Lymphs (auto) 1.93, Nucleated RBC % 0 11/24/22 13:10: Sodium 136, Potassium 4.0, Chloride 102, Carbon Dioxide 27.0, Anion Gap 7, BUN 17, Creatinine 1.03 H, Estim Creat Clear Calc 56.43, Est GFR (MDRD) Af Amer 73, Est GFR (MDRD) Non-Af 60, BUN/Creatinine Ratio 16.5, Glucose 101, Calcium 9.0, Total Bilirubin 1.10 H, Direct Bilirubin 0.52 H, AST 46 H, ALT 81 H, Alkaline Phosphatase 85, Total Protein 7.5, Albumin 3.2, Globulin 4.3 H, Lipase 127 11/24/22 13:10: Lactic Acid 1.2 Radiography Diagnostic Testing: Radiology Impression Abdomen/Pelvis CT 11/24/22 13:12 IMPRESSION: Proximal small bowel obstruction with thickened bowel and by the KINEVAC is down to the left midabdomen where there is a circumferential wall thickening of the affected small bowel loop. A mass lesion as well as possible intussusception should BE ruled out. Acute sigmoid diverticulitis with microperforation. Small amount of free fluid is seen in the cul-de-sac. Fatty attrition of the liver. N.B. : The above Results were Read Back by Ilya Alexander MD to Jay Richardson MD, and understanding confirmed on 11/24/2022 14:21:40 (ET). Electronically Signed: Ilya Alexander MD at 14:22 EST , ADDENDUM: 11/24/22 1429 IMPRESSION: Proximal small bowel obstruction with thickened bowel and by the KINEVAC is down to the left midabdomen where there is a circumferential wall thickening of the affected small bowel loop. A mass lesion as well as possible intussusception should BE ruled out. Acute sigmoid diverticulitis with microperforation. Small amount of free fluid is seen in the cul-de-sac. Fatty attrition of the liver. N.B. : The above Results were Read Back by Ilya Alexander MD to Jay Richardson MD, and understanding confirmed on 11/24/2022 14:21:40 (ET). Electronically Signed: Ilya Alexander MD at 14:22 EST , Rhythm Strip Rhythm Strip: Sinus Rhythm Rate: 80 Ectopy: None Physical Exam Narrative Physical exam: General: Alert, Oriented x3, Cooperative, in mild distress from pain HEENT: Atraumatic Oral: Moist Mucosa Neck: Supple Lungs: Diminished to auscultation Cardiovascular: HS I+II, regular, no murmurs Abdomen: Bowel Sounds Present, Soft, tenderness over the left lower quadrant with guarding, rebound tenderness Extremities: No edema Skin: Erythematous rash over the right lower extremity Neurological: Grossly intact Psych/Mental Status: Appropriate Assessment & Plan Assessment/Plan (1) Diverticulitis of colon with perforation: PLAN: Plan 1. Acute severe diverticulitis with microperforation, with initial probable intussusception Seen on initial CT of the abdomen pelvis; intussusception appears resolved on repeat CT Patient with transient hemodynamic dynamically stability on arrival with re lative hypotension Continue with IV Zosyn, IV fluids, Continue with general surgery recommendation 2. Hypotension, likely related to dehydration, improved with IV fluids Continue to monitor blood pressure 3. GERD, continue PPI 4. Asthma, not in acute exacerbation, will continue on breathing treatments as needed 5. Right lower extremity rash, unclear etiology, continue with topical steroid 6. Anxiety, continue on Prozac 7. DVT PPx- low risk; early ambulation recommended Charges/Coding Visit Charges Inpatient E&M: 74590 Init Hosp L3
[2022-11-24 15:59] VITALS: BMI 29.2
[2022-11-24 16:10] VITALS: BP 115/69; PULSE 91; RESP 18; TEMP 37.9; O2SAT 93
[2022-11-24] MEDS: Acetaminophen 325 MG Tablet 650 MG PO (16:38)
[2022-11-24] MEDS: 0.9% Normal Saline 1,000 ML 100 ML IV (16:38)
[2022-11-24] MEDS: Albuterol 2.5 MG/3 ML VIAL.NEB. INHALATION (18:59)
[2022-11-24 19:00] VITALS: PULSE 79; RESP 18
[2022-11-24] MEDS: Budesonide Respules 0.5 MG/2 ML AMPUL.NEB. INHALATION (19:00)
[2022-11-24] MEDS: oxyCODONE 5 MG Tablet PO (19:58)
[2022-11-24] MEDS: Clotrimazole/Betamethasone 1 Tube 1 APPLIC TOPICAL (21:36)
[2022-11-24 22:10] VITALS: BP 128/72; PULSE 80; RESP 18; TEMP 37.2; O2SAT 96
[2022-11-25] VITALS (7 sets, daily range): BP systolic 102–122; BP diastolic 58–76; PULSE 68–90; RESP 15–18; TEMP 36.8–37.2; O2SAT 95–97
[2022-11-25] MEDS: Acetaminophen 325 MG Tablet 650 MG PO (02:49)
[2022-11-25] MEDS: oxyCODONE 5 MG Tablet PO ×2 (02:54→19:48)
[2022-11-25] MEDS: 0.9% Normal Saline 1,000 ML 100 ML IV ×2 (05:22→14:15)
[2022-11-25] MEDS: Ondansetron 4 MG/2 ML Vial IV ×2 (05:52→13:31)
[2022-11-25 06:13] LABS: Absolute Lymphocyte Count 1.56 X10^3/uL (0.83-4.51); Absolute Neutrophil Count 11.5 X10^3/uL (2.0-7.7); Basophil# 0.03 X10^3/uL; Basophil% 0.2 % (0-1); Eosinophil# 0.06 X10^3/uL; Eosinophils% 0.4 % (0-5); Hematocrit 41.9 % (37-47); Lymphocyte # 1.56 X10^3/ul (0.83-4.51); Lymphocyte % 11.2 % (19-41); Mean Corpuscular Volume 86.9 fL (81-99); Mean Platelet Vol. 9.4 fl (6.2-12.0); Monocyte# 0.74 X10^3/uL; Monocyte% 5.3 % (0-10); NRBC Flagged by Analyzer 0 % (0-5); Neutrophil # 11.45 X10^3/uL (2.7-7.7); Neutrophil % 82.3 % (47-70); Platelet Count 219 K/mm3 (150-450); RBC Distribution Width CV 14.1 % (11.6-14.6); RBC Distribution Width SD 45.1 fl (35.1-43.9); Red Blood Count 4.82 M/mm3 (4.2-5.4); White Blood Count 13.9 K/mm3 (4.4-11.0)
[2022-11-25 06:51] LABS: AST(SGOT) 31 U/L (15-37); Alanine Aminotransfer ALT/SGPT 66 U/L (13-56); Albumin, Serum 2.7 g/dL (3.2-5.0); Alkaline Phosphatase 72 U/L (45-117); Anion Gap 9 (5-15); BUN 13 mg/dL (7-18); BUN/Creat Ratio 12.9 RATIO (10-20); Bilirubin, Direct 1.17 mg/dL (0.00-0.30); Calcium,Total 8.6 mg/dL (8.5-10.1); Chloride 107 mmol/L (98-107); Creatinine, Serum 1.01 mg/dL (0.55-1.02); EST Glomerular Filtration Rate 62 mL/min (>60); Est Glom Filt Rate - Afr Amer 75 mL/min (>60); Estimated Creatinine Clearance 57.54 ml/min; Globulin 3.8 g/dL (2.2-4.2); Glucose 115 mg/dL (74-106); Potassium 3.6 mmol/L (3.5-5.1); Protein, Total 6.5 g/dL (6.4-8.2); Sodium Level 140 mmol/L (136-145)
--- NOTE | 2022-11-25 07:19 | PN.SURG_ITS ---
Subjective Subjective Patient states pain is slightly better still having lower abdominal pain and taking pain meds. Patient denies any flatus states her last bowel movement was small amount yesterday morning. Patient did get nauseated this morning however patient's room was quite hot once that did improve her nausea did improve as we ll. Objective Data Objective Data Vital Signs: Vital Signs Temp Pulse Resp BP Pulse Ox O2 Del Method 99.0 F 68 16 102/58 L 97 Room Air 11/25/22 03:00 11/25/22 03:00 11/25/22 03:00 11/25/22 03:00 11/25/22 03:00 11/25/22 03:00 Oxygen Delivery Method Room Air Weight: 170 lb Body Mass Index (BMI) 29.2 Intake & Output: Intake and Output for Last 24 Hours 11/23/22 11/24/22 11/25/22 23:59 23:59 23:59 Intake Total 1708.33 / 1708.33 418.33 / 418.33 Balance 1708.33 / 1708.33 418.33 / 418.33 Lab / Micro Data Result Diagrams: 11/25/22 05:58 11/25/22 05:58 Labs: Laboratory Results - last 24 hr 11/24/22 13:10: WBC 13.5 H, RBC 5.53 H, Hgb 15.0, Hct 46.5, MCV 84.1, MCH 27.1, MCHC 32.3, RDW Std Deviation 43.2, RDW Coeff of [place] 14.1, Plt Count 246, MPV 9.1 , Immature Gran % (Auto) 0.600, Neut % (Auto) 77.2 H, Lymph % (Auto) 14.3 L, [place] % (Auto) 7.1, Eos % (Auto) 0.5, Baso % (Auto) 0.3, Absolute Neuts (auto) 10.4 H, Absolute Lymphs (auto) 1.93, Nucleated RBC % 0 11/24/22 13:10: Sodium 136, Potassium 4.0, Chloride 102, Carbon Dioxide 27.0, Anion Gap 7, BUN 17, Creatinine 1.03 H, Estim Creat Clear Calc 56.43, Est GFR (MDRD) Af Amer 73, Est GFR (MDRD) Non-Af 60, BUN/Creatinine Ratio 16.5, Glucose 101, Calcium 9.0, Total Bilirubin 1.10 H, Direct Bilirubin 0.52 H, AST 46 H, ALT 81 H, Alkaline Phosphatase 85, Total Protein 7.5, Albumin 3.2, Globulin 4.3 H, Lipase 127 11/24/22 13:10: Lactic Acid 1.2 11/25/22 05:58: WBC 13.9 H, RBC 4.82, Hgb 13.0, Hct 41.9, MCV 86.9, MCH 27.0, MCHC 31.0 L, RDW Std Deviation 45.1 H, RDW Coeff of [place] 14.1, Plt Count 219, MPV 9.4, Immature Gran % (Auto) 0.600, Neut % (Auto) 82.3 H, Lymph % (Auto) 11.2 L, [place] % (Auto) 5.3, Eos % (Auto) 0.4, Baso % (Auto) 0.2, Absolute Neuts (auto) 11.5 H, Absolute Lymphs (auto) 1.56, Nucleated RBC % 0 11/25/22 05:58: Sodium 140, Potassium 3.6, Chloride 107, Carbon Dioxide 24.0, Anion Gap 9, BUN 13, Creatinine 1.01, Estim Creat Clear Calc 57.54, Est GFR (MDRD) Af Amer 75, Est GFR (MDRD) Non-Af 62, BUN/Creatinine Ratio 12.9, Glucose 115 H, Calcium 8.6, Total Bilirubin 2.00 H, Direct Bilirubin 1.17 H, AST 31, ALT 66 H, Alkaline Phosphatase 72, Total Protein 6.5, Albumin 2.7 L, Globulin 3.8 Radiography Diagnostic Testing: Radiology Impression Abdomen/Pelvis CT 11/24/22 13:12 IMPRESSION: Proximal small bowel obstruction with thickened bowel and by the KINEVAC is down to the left midabdomen where there is a circumferential wall thickening of the affected small bowel loop. A mass lesion as well as possible intussusception should BE ruled out. Acute sigmoid diverticulitis with microperforation. Small amount of free fluid is seen in the cul-de-sac. Fatty attrition of the liver. N.B. : The above Results were Read Back by Ilya Alexander MD to Jay Richardson MD, and understanding confirmed on 11/24/2022 14:21:40 (ET). Electronically Signed: Ilya Alexander MD at 14:22 EST , ADDENDUM: 11/24/22 1429 IMPRESSION: Proximal small bowel obstruction with thickened bowel and by the KINEVAC is down to the left midabdomen where there is a circumferential wall thickening of the affected small bowel loop. A mass lesion as well as possible intussusception should BE ruled out. Acute sigmoid diverticulitis with microperforation. Small amount of free fluid is seen in the cul-de-sac. Fatty attrition of the liver. N.B. : The above Results were Read Back by Ilya Alexander MD to Jay Richardson MD, and understanding confirmed on 11/24/2022 14:21:40 (ET). Electronically Signed: Ilya Alexander MD at 14:22 EST , Abdomen/Pelvis CT 11/24/22 15:03 IMPRESSION: No small bowel obstruction is seen at this time. Persistent acute sigmoid diverticulitis with microperforation and inflammatory changes seen in the pelvis. Stable small cyst in the left ovary. Electronically Signed: Ilya Alexander MD at 15:29 EST , Rhythm Strip Rhythm Strip: Sinus Rhythm Rate: 80 Ectopy: None Physical Exam Const alert, oriented x3 and no apparent distress Resp normal respiratory effort Cardio regular rate GI soft to palpation; Negative for non-distended Palpation: tender LLQ (Most in the left lower quadrant) and RLQ and guarding LLQ (Voluntary) Neuro CN's II-XII intact bilaterally Psych mental status grossly normal Assessment & Plan Assessment/Plan (1) Diverticulitis of colon with perforation: (2) Enteric intussusception: PLAN: May be artifact per CT Will repeat CT abdomen pelvis PLAN: Plan We will treat conservatively with n.p.o./IV fluids IV Zosyn?her blood count slightly higher at 13.9 from 13.5. Patient does not have a day of antibiotics and patient states her pain is slightly better. C ontinue conservative management. Patient is aware that if her pain gets worse or fevers or increased white blood count the need more urgent surgery. Pain control Barbie Thompson M.D. Pager: [phone] [facility] [address] [place] [address], [facility], [address] [place] [address] Office: [phone] Charges/Coding Visit Charges Inpatient E&M: 52863 [facility] Hosp L3
[2022-11-25] MEDS: Albuterol 2.5 MG/3 ML VIAL.NEB. INHALATION ×3 (07:24→20:07)
[2022-11-25] MEDS: Budesonide Respules 0.5 MG/2 ML AMPUL.NEB. INHALATION ×2 (07:24→20:07)
[2022-11-25] MEDS: FLUoxetine 20 MG Capsule PO (10:12)
[2022-11-25] MEDS: Clotrimazole/Betamethasone 1 Tube 1 APPLIC TOPICAL ×2 (10:13→21:12)
--- NOTE | 2022-11-25 10:35 | CASEMGMT ---
KAVON BRADSHAW DC Planning Assessment: Face to Face with patient for initial transition planning/care coordination assessment.?KAVON BRADSHAW introduced self and role at [facility], pt voices understanding.? Pt alert, oriented x4, and lying in bed with spouse at bedside. Pt agreeable to participating in assessment. Care providers, pharmacy,?and demographics verified. ? Admitting dx: acute diverticulitis with microperforation PCP: Cornelius Specialists: none Preferred Pharmacy: [facility] Insurance: UMR Prescription Benefit: yes? Living Will/HPOA: None LNOK: spouse Fernando Living Arrangements: Pt lives with spouse in a single story home with one step to enter. Pt reports to be independent with all ADLS includins self care and household tasks. Transportation: Pt drives and spouse is able to assist if needed DME/HHC/SNF: denies ? Plan: Pt plans to return home with the support of her spouse and denies any concerns or needs at this time. Will continue to monitor and assist with DC needs as identified. Rica Yu RN CM
[2022-11-25] MEDS: SUMAtriptan succinate 25 MG TABLET PO (11:55)
[2022-11-25] MEDS: HYDROmorphone 0.5 MG/0.5 ML SYRINGE IV ×2 (13:32→16:03)
[2022-11-25] MEDS: 0.9% Saline Lock 10 ML Syringe IV (16:03)
[2022-11-26] MEDS: oxyCODONE 5 MG Tablet PO ×2 (04:29→11:11)
[2022-11-26] MEDS: 0.9% Normal Saline 1,000 ML 100 ML IV (04:29)
[2022-11-26 04:30] VITALS: BP 133/93; PULSE 73; RESP 16; TEMP 36.9; O2SAT 97
--- NOTE | 2022-11-26 07:42 | PCM.PN.SRG ---
Subjective Subjective DidPatient's pain has improved still has some tenderness in the lower abdomen his white blood count is down to 11.3. Objective Data Objective Data Vital Signs: Vital Signs Temp Pulse Resp BP Pulse Ox O2 Del Method 98.4 F 73 16 133/93 H 97 Room Air 11/26/22 04:30 11/26/22 04:30 11/26/22 04:30 11/26/22 04:30 11/26/22 04:30 11/26/22 04:30 Oxygen Delivery Method Room Air Weight: 170 lb 0.01 oz Body Mass Index (BMI) 29.2 Intake & Output: Intake and Output for Last 24 Hours 11/24/22 11/25/22 11/26/22 23:59 23:59 23:59 Intake Total 1708.33 / 1708.33 1516.66 / 1516.66 1050 / 1050 Balance 1708.33 / 1708.33 1516.66 / 1516.66 1050 / 1050 Lab / Micro Data Result Diagrams: 11/26/22 08:00 11/26/22 08:00 Rhythm Strip Rhythm Strip: Sinus Rhythm Rate: 80 Ectopy: None Physical Exam Const alert, oriented x3 and no apparent distress Resp normal respiratory effort Cardio regular rate GI soft to palpation; Negative for non-distended Palpation: tender LLQ (Most in the left lower quadrant-no guarding) and RLQ Assessment & Plan Assessment/Plan (1) Diverticulitis of colon with perforation: PLAN: Plan Okay for clears, continue IV Zosyn and pain management. Likely will repeat CT abdomen pelvis tomorrow. Patient has been no further question this time. Barbie Thompson M.D. Pager: [phone] [facility] [address] [place] [address], [facility], [address] [place] [address] Office: [phone]
[2022-11-26] MEDS: DiphenhydrAMINE 25 MG Capsule PO ×2 (08:06→19:57)
[2022-11-26 08:08] VITALS: BP 122/81; PULSE 64; RESP 16; TEMP 36.4; O2SAT 94
[2022-11-26 08:08] LABS: Absolute Lymphocyte Count 1.45 X10^3/uL (0.83-4.51); Basophil# 0.03 X10^3/uL; Basophil% 0.3 % (0-1); Eosinophil# 0.14 X10^3/uL; Eosinophils% 1.2 % (0-5); Hemoglobin 12.7 g/dL (12.0-15.0); Lymphocyte # 1.45 X10^3/ul (0.83-4.51); Lymphocyte % 12.8 % (19-41); Mean Corp Hgb Conc 31.8 g/dL (32-36); Mean Corpuscular Hgb 27.3 pg (27.0-32.0); Mean Corpuscular Volume 85.8 fL (81-99); Monocyte# 0.63 X10^3/uL; Monocyte% 5.6 % (0-10); NRBC Flagged by Analyzer 0 % (0-5); Neutrophil # 8.98 X10^3/uL (2.7-7.7); Neutrophil % 79.6 % (47-70); Platelet Count 225 K/mm3 (150-450); RBC Distribution Width CV 14.1 % (11.6-14.6); RBC Distribution Width SD 44.2 fl (35.1-43.9); Red Blood Count 4.66 M/mm3 (4.2-5.4); White Blood Count 11.3 K/mm3 (4.4-11.0)
[2022-11-26 08:36] LABS: AST(SGOT) 19 U/L (15-37); Alanine Aminotransfer ALT/SGPT 45 U/L (13-56); Albumin, Serum 2.7 g/dL (3.2-5.0); Alkaline Phosphatase 66 U/L (45-117); Anion Gap 9 (5-15); BUN 9 mg/dL (7-18); BUN/Creat Ratio 8.9 RATIO (10-20); Calcium,Total 8.5 mg/dL (8.5-10.1); Chloride 103 mmol/L (98-107); Creatinine, Serum 1.01 mg/dL (0.55-1.02); EST Glomerular Filtration Rate 62 mL/min (>60); Est Glom Filt Rate - Afr Amer 75 mL/min (>60); Estimated Creatinine Clearance 57.54 ml/min; Globulin 4.1 g/dL (2.2-4.2); Glucose 75 mg/dL (74-106); Potassium 3.7 mmol/L (3.5-5.1); Protein, Total 6.8 g/dL (6.4-8.2); Sodium Level 137 mmol/L (136-145)
[2022-11-26] MEDS: Clotrimazole/Betamethasone 1 Tube 1 APPLIC TOPICAL ×2 (09:03→21:54)
[2022-11-26] MEDS: FLUoxetine 20 MG Capsule PO (09:03)
[2022-11-26] MEDS: FLUTICASONE/VILANTEROL 1 EACH BLST.W.DEV INHALATION (09:26)
[2022-11-26] MEDS: 0.9% Saline Lock 10 ML Syringe IV (13:34)
[2022-11-26] MEDS: Famotidine 20 MG Tablet PO (13:34)
[2022-11-26 15:43] VITALS: BP 107/67; PULSE 67; RESP 16; TEMP 37; O2SAT 96
[2022-11-26] MEDS: SUMAtriptan succinate 25 MG TABLET PO (15:44)
[2022-11-26] MEDS: Ibuprofen 600 MG Tablet PO (18:14)
[2022-11-26 20:22] VITALS: BP 119/83; PULSE 69; RESP 16; TEMP 36.9; O2SAT 96
--- NOTE | 2022-11-27 | CT_ITS ---
EXAM: CT ABDOMEN AND PELVIS WITH INTRAVENOUS CONTRAST CLINICAL INDICATION: diverticulitis -- PO and IV TECHNIQUE: Helically acquired images were obtained of the abdomen and pelvis with intravenous contrast. This CT exam was performed using one or more of the following dose reduction techniques: automated exposure control, adjustment of the mA and/or kV according to patient size, and/or use of iterative reconstruction technique. This report was created using [employer] report generation technology. CONTRAST: Oral and amp; IV Gastrografin and amp; 100mL Isovue-370 COMPARISON: CT Abdomen Pelvis dated 11/24/2022 FINDINGS: LOWER THORAX: Small hiatal hernia. Mild hepatic steatosis. ABDOMEN: LIVER: Normal. Homogeneous. No focal mass. GALLBLADDER AND BILE DUCTS: Noncalcified stone noted within the gallbladder. No gallbladder distention or wall edema. No intra- or extrahepatic biliary ductal dilation. PANCREAS: Normal. No focal cystic or solid mass. SPLEEN: Normal. Normal size without focal cystic or solid mass. ADRENALS: Normal. No nodules. KIDNEYS AND URETERS: Normal. Normal renal size and position. No hydronephrosis. STOMACH AND BOWEL: Extensive gas formation noted along the retroperitoneum secondary to perforated sigmoid diverticulitis. Contained peritoneal perforation of the diverticulitis. No free air identified within the peritoneal cavity on the current exam. PELVIS: APPENDIX: Appendix is visualized and normal in appearance. BLADDER: Normal. REPRODUCTIVE: 2.6 cm uterine fibroid. ABDOMEN and PELVIS: INTRAPERITONEAL SPACE: Small amount of free fluid noted within the cul-de-sac without evidence of abscess formation. BONES/JOINTS: No suspicious lytic or blastic abnormality. SOFT TISSUES: Normal. No discrete abdominal or pelvic wall hernia. VASCULATURE: Normal. Abdominal aorta is non-dilated. LYMPH NODES: Normal. No enlarged lymph nodes. CT/Abdomen/Pelvis WITH Contrast IMPRESSION: 1. Acute sigmoid diverticulitis now with extensive perforation into the retroperitoneum and with small contained perforation within the pelvis. 2. Interval resolution of the pneumoperitoneum. 3. Mild hepatic steatosis. 4. Cholelithiasis. Electronically Signed: Danilo Garcia MD at 10:32 EST ,
[2022-11-27 02:49] VITALS: BP 103/68; PULSE 57; RESP 16; TEMP 36.7; O2SAT 96
[2022-11-27] MEDS: Ibuprofen 600 MG Tablet PO (05:32)
[2022-11-27 05:35] LABS: Absolute Lymphocyte Count 1.55 X10^3/uL (0.83-4.51); Absolute Neutrophil Count 4.7 X10^3/uL (2.0-7.7); Basophil# 0.03 X10^3/uL; Basophil% 0.4 % (0-1); Eosinophil# 0.17 X10^3/uL; Eosinophils% 2.4 % (0-5); Hematocrit 40.2 % (37-47); Lymphocyte # 1.55 X10^3/ul (0.83-4.51); Lymphocyte % 22.3 % (19-41); Mean Corp Hgb Conc 32.3 g/dL (32-36); Mean Corpuscular Hgb 27.2 pg (27.0-32.0); Mean Corpuscular Volume 84.1 fL (81-99); Mean Platelet Vol. 9.3 fl (6.2-12.0); Monocyte% 7.2 % (0-10); NRBC Flagged by Analyzer 0 % (0-5); Neutrophil # 4.69 X10^3/uL (2.7-7.7); Neutrophil % 67.4 % (47-70); Platelet Count 244 K/mm3 (150-450); RBC Distribution Width CV 13.8 % (11.6-14.6); RBC Distribution Width SD 42.5 fl (35.1-43.9); Red Blood Count 4.78 M/mm3 (4.2-5.4)
[2022-11-27 06:09] LABS: AST(SGOT) 20 U/L (15-37); Alanine Aminotransfer ALT/SGPT 38 U/L (13-56); Albumin, Serum 2.6 g/dL (3.2-5.0); Alkaline Phosphatase 68 U/L (45-117); Anion Gap 6 (5-15); BUN 9 mg/dL (7-18); BUN/Creat Ratio 9.4 RATIO (10-20); Bilirubin, Direct 0.55 mg/dL (0.00-0.30); Calcium,Total 9.1 mg/dL (8.5-10.1); Chloride 105 mmol/L (98-107); Creatinine, Serum 0.96 mg/dL (0.55-1.02); EST Glomerular Filtration Rate 65 mL/min (>60); Est Glom Filt Rate - Afr Amer 79 mL/min (>60); Estimated Creatinine Clearance 60.54 ml/min; Globulin 4.3 g/dL (2.2-4.2); Glucose 84 mg/dL (74-106); Potassium 3.5 mmol/L (3.5-5.1); Protein, Total 6.9 g/dL (6.4-8.2); Sodium Level 139 mmol/L (136-145)
--- NOTE | 2022-11-27 07:27 | PN.SURG_ITS ---
Objective Data Objective Data Vital Signs: Vital Signs Temp Pulse Resp BP Pulse Ox O2 Del Method 98.1 F 57 L 16 103/68 96 Room Air 11/27/22 02:49 11/27/22 02:49 11/27/22 02:49 11/27/22 02:49 11/27/22 02:49 11/27/22 02:49 Oxygen Delivery Method Room Air Weight: 170 lb 0.01 oz Body Mass Index (BMI) 29.2 Intake & Output: Intake and Output for Last 24 Hours 11/25/22 11/26/22 11/27/22 23:59 23:59 23:59 Intake Total 1516.66 / 1516.66 1835 / 1835 1050 / 1050 Balance 1516.66 / 1516.66 1835 / 1835 1050 / 1050 Lab / Micro Data Result Diagrams: 11/28/22 08:05 11/27/22 05:19 Labs: Laboratory Results - last 24 hr 11/26/22 08:00: Sodium 137, Potassium 3.7, Chloride 103, Carbon Dioxide 25.0, Anion Gap 9, BUN 9, Creatinine 1.01, Estim Creat Clear Calc 57.54, Est GFR (MDRD) Af Amer 75, Est GFR (MDRD) Non-Af 62, BUN/Creatinine Ratio 8.9 L, Glucose 75, Calcium 8.5, Total Bilirubin 1.20 H, Direct Bilirubin 0.60 H, AST 19, ALT 45, Alkaline Phosphatase 66, Total Protein 6.8, Albumin 2.7 L, Globulin 4.1 11/26/22 08:00: WBC 11.3 H, RBC 4.66, Hgb 12.7, Hct 40.0, MCV 85.8, MCH 27.3, MCHC 31.8 L, RDW Std Deviation 44.2 H, RDW Coeff of Shelton 14.1, Plt Count 225, MPV 9.0, Immature Gran % (Auto) 0.500, Neut % (Auto) 79.6 H, Lymph % (Auto) 12.8 L, [place] % (Auto) 5.6, Eos % (Auto) 1.2, Baso % (Auto) 0.3, Absolute Neuts (auto) 9.0 H, Absolute Lymphs (auto) 1.45, Nucleated RBC % 0 11/27/22 05:19: WBC 7.0, RBC 4.78, Hgb 13.0, Hct 40.2, MCV 84.1, MCH 27.2, MCHC 32.3, RDW Std Deviation 42.5, RDW Coeff of Shel[place] 13.8, Plt Count 244, MPV 9.3, Immature Gran % (Auto) 0.300, Neut % (Auto) 67.4, Lymph % (Auto) 22.3, [place] % (Auto) 7.2, Eos % (Auto) 2.4, Baso % (Auto) 0.4, Absolute Neuts (auto) 4.7, Absolute Lymphs (auto) 1.55, Nucleated RBC % 0 11/27/22 05:19: Sodium 139, Potassium 3.5, Chloride 105, Carbon Dioxide 28.0, Anion Gap 6, BUN 9, Creatinine 0.96, Estim Creat Clear Calc 60.54, Est GFR (MDRD) Af Amer 79, Est GFR (MDRD) Non-Af 65, BUN/Creatinine Ratio 9.4 L, Glucose 84, Calcium 9.1, Total Bilirubin 1.10 H, Direct Bilirubin 0.55 H, AST 20, ALT 38, Alkaline Phosphatase 68, Total Protein 6.9, Albumin 2.6 L, Globulin 4.3 H Rhythm Strip Rhythm Strip: Sinus Rhythm Rate: 80 Ectopy: None Assessment & Plan Assessment/Plan (1) Diverticulitis of colon with perforation: PLAN: Plan Okay for clears, continue IV Zosyn and pain management. check ct a/p today; addendum: CT a/p showed increased retroperitoneal air, no leaking of contrast identified--pt did have one episode of increased pain which was improved after dilaudid x1. Barbie Thompson M.D. Pager: [phone] [facility] [address] [place] [address], [facility], [address] [place] [address] Office: [phone] Charges/Coding Visit Charges Inpatient E&M: 70659 Subs Hosp L3
[2022-11-27 07:58] VITALS: BP 114/84; PULSE 75; RESP 17; TEMP 36.6; O2SAT 96
[2022-11-27] MEDS: FLUoxetine 20 MG Capsule PO (12:02)
[2022-11-27] MEDS: Clotrimazole/Betamethasone 1 Tube 1 APPLIC TOPICAL ×2 (12:02→21:29)
[2022-11-27] MEDS: FLUTICASONE/VILANTEROL 1 EACH BLST.W.DEV INHALATION (12:03)
[2022-11-27] MEDS: Enoxaparin 40 MG/0.4 ML Syringe SC (15:38)
[2022-11-27] MEDS: 0.9% Saline Lock 10 ML Syringe IV (15:54)
[2022-11-27] MEDS: Ondansetron 4 MG/2 ML Vial IV (15:54)
[2022-11-27] MEDS: HYDROmorphone 0.5 MG/0.5 ML SYRINGE IV (15:56)
[2022-11-27 16:01] VITALS: BP 120/76; PULSE 84; RESP 17; TEMP 36.6; O2SAT 97
[2022-11-27 21:16] VITALS: BP 108/61; PULSE 75; RESP 16; TEMP 36.8; O2SAT 97
[2022-11-27] MEDS: DiphenhydrAMINE 25 MG Capsule PO (21:29)
[2022-11-27] MEDS: oxyCODONE 5 MG Tablet PO (21:30)
[2022-11-28] VITALS (24 sets, daily range): BP systolic 83–138; BP diastolic 53–80; PULSE 70–124; RESP 16–20; TEMP 36.3–37.3; O2SAT 90–97; BMI 29.2
[2022-11-28] MEDS: Ibuprofen 600 MG Tablet PO (03:54)
[2022-11-28] MEDS: HYDROmorphone 0.5 MG/0.5 ML SYRINGE IV ×2 (06:52→18:57)
[2022-11-28] MEDS: 0.9% Saline Lock 10 ML Syringe IV ×3 (06:52→18:57)
[2022-11-28] MEDS: Ondansetron 4 MG/2 ML Vial IV ×2 (06:57→18:57)
[2022-11-28 08:18] LABS: Absolute Lymphocyte Count 0.79 X10^3/uL (0.83-4.51); Absolute Neutrophil Count 9.2 X10^3/uL (2.0-7.7); Basophil# 0.03 X10^3/uL; Basophil% 0.3 % (0-1); Eosinophil# 0.03 X10^3/uL; Eosinophils% 0.3 % (0-5); Hematocrit 42.3 % (37-47); Hemoglobin 13.7 g/dL (12.0-15.0); Lymphocyte # 0.79 X10^3/ul (0.83-4.51); Lymphocyte % 7.4 % (19-41); Mean Corp Hgb Conc 32.4 g/dL (32-36); Mean Corpuscular Hgb 27.2 pg (27.0-32.0); Mean Corpuscular Volume 84.1 fL (81-99); Mean Platelet Vol. 8.9 fl (6.2-12.0); Monocyte# 0.63 X10^3/uL; Monocyte% 5.9 % (0-10); NRBC Flagged by Analyzer 0 % (0-5); Neutrophil # 9.18 X10^3/uL (2.7-7.7); Neutrophil % 85.7 % (47-70); Platelet Count 283 K/mm3 (150-450); RBC Distribution Width CV 13.8 % (11.6-14.6); RBC Distribution Width SD 42.5 fl (35.1-43.9); Red Blood Count 5.03 M/mm3 (4.2-5.4); White Blood Count 10.7 K/mm3 (4.4-11.0)
--- NOTE | 2022-11-28 08:29 | PN.SURG_ITS ---
Subjective Subjective Patient had an episode of increased pain again at 645 this morning. Still complains of pain getting another dose of Dilaudid. Patient denies having increased pain since the previous episode yesterday. Objective Data Objective Data Vital Signs: Vital Signs Temp Pulse Resp BP Pulse Ox O2 Del Method 97.6 F L 95 20 H 97/67 95 Room Air 11/28/22 07:02 11/28/22 07:02 11/28/22 07:02 11/28/22 07:02 11/28/22 07:02 11/28/22 07:02 Oxygen Delivery Method Room Air Weight: 170 lb 0.01 oz Body Mass Index (BMI) 29.2 Intake & Output: Intake and Output for Last 24 Hours 11/26/22 11/27/22 11/28/22 23:59 23:59 23:59 Intake Total 1834 650 / 650 Output Total Balance 1834 647 / 647 Lab / Micro Data Result Diagrams: 11/28/22 08:05 11/28/22 08:05 Labs: Laboratory Results - last 24 hr 11/28/22 08:05: WBC 10.7, RBC 5.03, Hgb 13.7, Hct 42.3, MCV 84.1, MCH 27.2, MCHC 32.4, RDW Std Deviation 42.5, RDW Coeff of Shel[place] 13.8, Plt Count 283, MPV 8.9, Immature Gran % (Auto) 0.400, Neut % (Auto) 85.7 H, Lymph % (Auto) 7.4 L, [place] % (Auto) 5.9, Eos % (Auto) 0.3, Baso % (Auto) 0.3, Absolute Neuts (auto) 9.2 H, Absolute Lymphs (auto) 0.79 L, Nucleated RBC % 0 Radiography Diagnostic Testing: Radiology Impression Abdomen/Pelvis CT 11/27/22 00:00 IMPRESSION: 1. Acute sigmoid diverticulitis now with extensive perforation into the retroperitoneum and with small contained perforation within the pelvis. 2. Interval resolution of the pneumoperitoneum. 3. Mild hepatic steatosis. 4. Cholelithiasis. Electronically Signed: Danilo Garcia MD at 10:32 EST , Rhythm Strip Rhythm Strip: Sinus Rhythm Rate: 80 Ectopy: None Physical Exam Const alert, oriented x3 and no apparent distress Resp normal respiratory effort Cardio regular rate GI soft to palpation; Negative for non-distended Palpation: tender LLQ (Most in the left lower quadrant-voluntary guarding) and RLQ Assessment & Plan Assessment/Plan (1) Diverticulitis of colon with perforation: PLAN: Plan N.p.o. continue IV Zosyn. Discussed with patient that her pain getting worse and she is likely going to need an urgent surgery. Question whether due to colectomy today versus tomorrow depends on how she responds with the pain as yesterday she did have a long period in between the pain episode. Patient CT of the pelvis did show increase in retroperitoneal air however question if that was from prior as clinically yesterday a.m. she was getting better pain was improving white blood count was improving. White blood count 10.7 currently with a left shift. Vital stable. Did discuss the procedure with patient laparoscopic sigmoidectomy, possible open including risks but not limited to bleeding, infection, injury to another organ, colostomy, and anesthesia. Patient no further questions time. Noncontrast CT did show increased free air we will go to the OR this morning. Babrie Thompson M.D. Pager: [phone] [facility] [address] [place] [address], [facility], [address] [place] [id number] Office: [phone]
[2022-11-28 08:43] LABS: AST(SGOT) 18 U/L (15-37); Alanine Aminotransfer ALT/SGPT 33 U/L (13-56); Albumin, Serum 2.6 g/dL (3.2-5.0); Alkaline Phosphatase 84 U/L (45-117); Anion Gap 9 (5-15); BUN 11 mg/dL (7-18); BUN/Creat Ratio 11.5 RATIO (10-20); Bilirubin, Direct 0.95 mg/dL (0.00-0.30); Calcium,Total 9.2 mg/dL (8.5-10.1); Chloride 102 mmol/L (98-107); Creatinine, Serum 0.95 mg/dL (0.55-1.02); EST Glomerular Filtration Rate 66 mL/min (>60); Est Glom Filt Rate - Afr Amer 80 mL/min (>60); Estimated Creatinine Clearance 61.18 ml/min; Globulin 4.4 g/dL (2.2-4.2); Glucose 95 mg/dL (74-106); Potassium 3.8 mmol/L (3.5-5.1); Sodium Level 137 mmol/L (136-145)
[2022-11-28] MEDS: HYDROmorphone 1 MG/ML Syringe IV (08:44)
--- NOTE | 2022-11-28 09:33 | CT_ITS ---
We are attempting to reach an attending provider to discuss findings. An addendum with communication details will be sent when the communication is complete. STUDY: CT ABDOMEN AND PELVIS WITHOUT CONTRAST REASON FOR EXAM: Female, 52 years old. Diverticulitis, abd pain -- RADIATION DOSAGE (If Supplied By Facility): CTDIvol = ( 15.34 ) mGy, DLP = ( 770.36 ) mGycm TECHNIQUE: Transaxial images were obtained from the dome of the diaphragm to the symphysis pubis without oral contrast, and without intravenous contrast. Sagittal and coronal images were reconstructed. Individualized dose optimization techniques were used for this CT. COMPARISON: Including November 27, 2022 FINDINGS: The visualized lung bases are unremarkable. The visualized portions of the heart are within normal limits. Normal liver. There is a solitary gallstone. Normal spleen. Normal pancreas. Normal bilateral adrenal glands. Normal right kidney. Normal left kidney. There is a small hiatal hernia. There is wall thickening involving loops of small intestine. There is diverticulosis, with thickening of sigmoid the colon wall, and pericolonic inflammation changes consistent with acute diverticulitis. There is worsening pneumoperitoneum with a large amount of free intraperitoneal air. There is stable air dissecting along the retroperitoneum . The appendix is visualized and appears normal. Normal abdominal aorta. Normal inferior vena cava. Normal retroperitoneum. Normal urinary bladder. Normal visualized uterus. Normal abdominal wall. Normal osseous structures. CT/Abdomen/Pelvis without Cont IMPRESSION: Sigmoid diverticulitis with worsening perforation and pneumoperitoneum. No obstruction or abscess. Wall thickening of small bowel loops suggesting enteritis. Hiatal hernia. Gallstone. Electronically Signed: Zenon Culver MD at 10:28 EST ,
--- NOTE | 2022-11-28 09:46 | NURSING ---
[id number] called into pt room, patient stated hard to breath encouraged deep breathing and vitals checked. vital signs stable. Dr Thompson aware of vitals and pain level is at 9 after Dilaudid x1 dose. order for CT scan. patient aware of CT scan. Mich Amaya RN
--- NOTE | 2022-11-28 10:34 | NURSING ---
[address] scan Mich Amaya RN
--- NOTE | 2022-11-28 10:35 | NURSING ---
1015 patient going to OR, vitals signs done and surgery prep done. see checklist, in room Mich Amaya RN
[2022-11-28] MEDS: Lactated Ringers 1,000 ML 15 ML IV ×4 (10:50→16:42)
--- NOTE | 2022-11-28 11:25 | COL_PTH ---
PATIENT: FLORENTIN HURTADOJANUARY HERMAN LOC: MS3 U#:[id number] AGE/SX: 52/F [place] [facility] [place]: Dr. Barbie Thompson MD : 1970 BED: 1 DIS: 12/06/2022 SPEC #: [id number] RECD: 11/28/22 15:02 STATUS: TEJINDER RENery #: [id number] MONICA: 11/28/22 11:[address]: Barbie Thompson DEPT: SURGICAL PATHOLOGY RECD BY: Debbi Tsai ENTERED: 11/29/22 09:15 SP TYPE: COLON OTHR DR: DO Dr. Shawanda Rajan MD Tissues: Colon, NOS Procedures: Surgery Specimen Level III Surgery Specimen Level V HEADER OPERATION: Attempted laparoscopic converted to open sigmoid colectomy PRE-OP DIAGNOSIS: Diverticulitis of colon with perforation TISSUE SUBMITTED: Sigmoid, staple sosa distal, suture rectosigmoid MICROSCOPIC DIAGNOSIS Sigmoid colon, colectomy: Diverticulosis and diverticulitis. One benign pericolonic lymph node. Colonic donut, no pathologic diagnosis. ALLISON:justyn 12/01/2022 MICROSCOPIC DESCRIPTION Slides are reviewed. GROSS DESCRIPTION Received in fixative is one container labeled with the patient's name and designated sigmoid, staple sosa distal, suture at rectosigmoid. The specimen consists of a segment of colon with pericolonic adipose tissue measuring 11.0 cm in length. Both resection margins are stapled. Adipose tissue shows a focal area of brownish-moffett exudate. No mucosal lesion is identified. Sections reveal multiple diverticula. A few of the diverticula appears to be ruptured. Also present in the container is a donut-shaped piece of colonic tissue with multiple cheryl measuring 4.0 x 1.0 x 1.0 cm. Sections will be submitted after fixation. / SJ:justyn 11/29/2022 Sections of pericolonic adipose tissue do not reveal any obviously enlarged lymph nodes. Carton Forming Machine Operator sections are submitted in six cassettes as follows: 1??donut-shaped piece of tissue, 2 - resection margins, distal resection margin inked black, 3 & 4 - diverticula with focal area of possible rupture, 5 & 6 - more diverticula (6 also contains the pericolonic adipose tissue). / ALLISON:justyn 11/30/2022 TC:5 CPT:
[2022-11-28] MEDS: Lubricating Jelly 60 GM Tube 30 GM (12:14)
[2022-11-28] MEDS: Bupivacaine 0.5% PF 10 ML VIAL (14:35)
--- NOTE | 2022-11-28 14:50 | PCM.OPRPT ---
Report of Operation Date of Procedure: 11/28/22 Pre-Operative Diagnosis: Perforated diverticulitis Post-Operative Diagnosis: Necrotic/gangrenous sigmoid colon Surgery/Procedure Performed:: Laparoscopic converted to open sigmoidectomy, Kira's procedure Description of Surgical Findings:: Feculent/purulent fluid throughout the abdomen Surgeon: Barbie Thompson boat canvas installer: Juan Gupta Type of Anesthesia: General/Supplemental Anesthesiologist: Cody Quinteros Special Medications: Zosyn 3.375 g every 8 hours for acute diverticulitis on the floor Specimen's removed: Sigmoid colon Drains: 2 space 15 Occitan JPs, urine per anesthesia Estimated Blood Loss (mL): 50 cc Fluids Replaced: Per anesthesia Description of Procedure: Indications: this is a 52-year-old female who initially presented to ER with acute diverticulitis, patient failed conservative management had increasing pain and increasing air on CT. Laparoscopic sigmoidectomy was elected. Description procedure: The patient was placed on operating table in low lithotomy position with appropriate padding. General Anesthesia was induced. Jain catheter was placed. A timeout was completed verifying correct patient, procedure, site, position, social, and special equipment prior to beginning procedure. The rectum was irrigated with Betadine solution. The abdomen was prepped and draped in usual sterile fashion. An incision was made in the natural skin line above the umbilicus. The fascia was elevated and incised. The peritoneum was elevated and incised. Entry into the peritoneum was confirmed visually and no bowel was noted in the vicinity of the incision. Hurt trocar was placed. The abdomen was insufflated with carbon dioxide to a pressure of 12-15 mmHg. Patient tolerated insufflation well. The laparoscope was then inserted and abdomen inspected. No injuries from initial trocar placement were noted. Additional trochars were then inserted in the following locations 5 mm trocar in the right lower quadrant and another in the lower midline. The abdomen was inspected, there was noted to be feculent/purulent material throughout the abdomen. Converted to a laparotomy. Incision made with 10 blade scalpel and deepened with electrocautery to the fascia. Extra-large wound protector was placed. The sigmoid colon was noted to be gangrenous/necrotic. The Enseal was used dissected the white line of Toldt on the left side. This was followed to the necrotic/gangrenous section sigmoid. Left ureter identified and protected. The mesentery of the sigmoid colon was dissected with the Enseal. The OpSourceycane blue load stapler was used to staple across the rectum at normal rectal tissue. SCARLET 75 cm stapler was used to divide the proximal colon at normal colon. Sigmoid was sent to pathology suture marked distal/rectosigmoid junction. 2-0 Prolene was placed on the rectal stump. Abdomen was irrigated with 4 L of saline. 2 15 Occitan JPs were placed in bilateral lower quadrants. JPs were secured with 3-0 nylons. Left lower quadrant ostomy was formed after taking a disc of skin/tissue in the selected area. Subcutaneous tissue was divided then the fascia was incised with electrocautery and muscles again divided in a vertical incision in the peritoneum. 2-3 fingers easily fit in this area. The descending colon was brought in to this area. It was secured to the fascia with one 3-0 silk suture. The midline incision fascia was closed with a running 1 PDS. All wounds were irrigated. Skin was closed loosely with skin cheryl and Betadine soaked mayela x5 placed intermittently. The end colostomy was matured in Romi fashion after staple line and cut with heavy Choi scissors. Colostomy had good blood supply. Midline incision was dressed with Telfa gauze, ABDs and tape. Colostomy appliance was placed. The patient was extubated. The patient tolerated procedure well and was taken to the postanesthesia care unit in stable condition. Complications none
[2022-11-28] MEDS: Lactated Ringers 1,000 ML 999 ML IV (17:40)
[2022-11-28] MEDS: 0.45% Normal Saline 1,000 ML 120 ML IV (19:11)
[2022-11-28] MEDS: Clotrimazole/Betamethasone 1 Tube 1 APPLIC TOPICAL (21:16)
[2022-11-28 23:55] LABS: Absolute Lymphocyte Count 0.56 X10^3/uL (0.83-4.51); Absolute Neutrophil Count 10.1 X10^3/uL (2.0-7.7); Basophil# 0.05 X10^3/uL; Basophil% 0.4 % (0-1); Hematocrit 38.8 % (37-47); Hemoglobin 12.7 g/dL (12.0-15.0); Lymphocyte # 0.56 X10^3/ul (0.83-4.51); Lymphocyte % 4.9 % (19-41); Mean Corp Hgb Conc 32.7 g/dL (32-36); Mean Corpuscular Hgb 27.6 pg (27.0-32.0); Mean Corpuscular Volume 84.3 fL (81-99); Monocyte# 0.63 X10^3/uL; Monocyte% 5.6 % (0-10); NRBC Flagged by Analyzer 0 % (0-5); Neutrophil # 10.05 X10^3/uL (2.7-7.7); Neutrophil % 88.6 % (47-70); POSITIVE DIFFERENTIAL YES; POSITIVE MORPHOLOGY YES; Platelet Count 297 K/mm3 (150-450); RBC Distribution Width CV 14.1 % (11.6-14.6); RBC Distribution Width SD 43.4 fl (35.1-43.9); White Blood Count 11.4 K/mm3 (4.4-11.0)
[2022-11-29] VITALS (11 sets, daily range): BP systolic 98–113; BP diastolic 55–75; PULSE 85–111; RESP 16–18; TEMP 36.3–37.1; O2SAT 92–97
[2022-11-29] LABS: Differential Indicated SCAN CRITERIA MET
[2022-11-29] LABS: Blood Gas Specimen Type VEN; O2 Delivery Device Cannula; VBG BASE EXCESS -3 mmol/L (-1.0-3.5); VBG Bicarbonate 22 mmol/L (22-26); VBG PO2 176 mmHg (25-40); VBG SO2 100 % (50-70); VBG TCO2 23 mmol/L (23-33); VBG pCO2 36.2 mmHg (41-51); VBG pH 7.39 (7.32-7.42)
--- NOTE | 2022-11-29 00:33 | PCM.HOSP.N ---
Hospitalist Note Received message about Ms. Noe having borderline BP and still having abdominal pain. Had initially been consulted but had not had active medical needs that needed followed after initial hypotension was resolved. Renotified from floor about BP and heart rate after surgery. Asked for stat labs and went to evaluate patient he was resting comfortably in bed, has diffuse abdominal pain, ostomy noted in dressing clean dry and intact over incision. No pain on light palpation, given extensive surgery did not perform deep palpation but did not have any rigidity. Most recent BP 109/72 with a MAP of 84 and heart rate 112 but had been systolic in the 80s to 90s. Had received 5 L perioperatively and is on fluids presently. Discussed with patient bouncing pain control with blood pressure and options moving forward and possible outcomes, hemoglobin thus far stable and ABG unremarkable, awaiting lactic and BMP but will likely be able to monitor clinically and monitor BP closely while treating pain. We will notify day team of acute change/surgery
[2022-11-29 00:40] LABS: Lactic Acid 1.6 mmol/L (0.4-1.9)
[2022-11-29] MEDS: fentaNYL 100 MCG/2 ML Ampul 50 MCG IV (00:45)
[2022-11-29 00:51] LABS: ALB/GLOB Ratio 0.5 RATIO (0.9-2.4); AST(SGOT) 24 U/L (15-37); Alanine Aminotransfer ALT/SGPT 26 U/L (13-56); Albumin, Serum 1.8 g/dL (3.2-5.0); Alkaline Phosphatase 50 U/L (45-117); Anion Gap 10 (5-15); BUN 10 mg/dL (7-18); BUN/Creat Ratio 12.6 RATIO (10-20); Chloride 105 mmol/L (98-107); Creatinine, Serum 0.79 mg/dL (0.55-1.02); EST Glomerular Filtration Rate 82 mL/min (>60); Est Glom Filt Rate - Afr Amer 99 mL/min (>60); Estimated Creatinine Clearance 73.57 ml/min; Globulin 3.4 g/dL (2.2-4.2); Glucose 102 mg/dL (74-106); Potassium 3.8 mmol/L (3.5-5.1); Protein, Total 5.2 g/dL (6.4-8.2); Sodium Level 139 mmol/L (136-145)
[2022-11-29] MEDS: HYDROmorphone 0.5 MG/0.5 ML SYRINGE IV ×5 (01:56→21:06)
[2022-11-29] MEDS: 0.45% Normal Saline 1,000 ML 120 ML IV ×3 (02:03→18:54)
[2022-11-29 06:48] LABS: Absolute Lymphocyte Count 0.84 X10^3/uL (0.83-4.51); Absolute Neutrophil Count 11.6 X10^3/uL (2.0-7.7); Basophil# 0.06 X10^3/uL; Basophil% 0.5 % (0-1); Hematocrit 38.1 % (37-47); Hemoglobin 12.2 g/dL (12.0-15.0); Lymphocyte # 0.84 X10^3/ul (0.83-4.51); Lymphocyte % 6.4 % (19-41); Mean Corpuscular Hgb 26.9 pg (27.0-32.0); Mean Corpuscular Volume 83.9 fL (81-99); Mean Platelet Vol. 9.3 fl (6.2-12.0); Monocyte# 0.57 X10^3/uL; Monocyte% 4.3 % (0-10); NRBC Flagged by Analyzer 0 % (0-5); Neutrophil % 87.8 % (47-70); POSITIVE MORPHOLOGY YES; Platelet Count 313 K/mm3 (150-450); RBC Distribution Width CV 14.2 % (11.6-14.6); RBC Distribution Width SD 43.8 fl (35.1-43.9); Red Blood Count 4.54 M/mm3 (4.2-5.4); White Blood Count 13.2 K/mm3 (4.4-11.0)
[2022-11-29 07:07] LABS: Differential Indicated SCAN CRITERIA MET
[2022-11-29 07:10] LABS: Anion Gap 9 (5-15); BUN 11 mg/dL (7-18); BUN/Creat Ratio 13.4 RATIO (10-20); Calcium,Total 8.1 mg/dL (8.5-10.1); Chloride 105 mmol/L (98-107); Creatinine, Serum 0.82 mg/dL (0.55-1.02); EST Glomerular Filtration Rate 78 mL/min (>60); Est Glom Filt Rate - Afr Amer 95 mL/min (>60); Estimated Creatinine Clearance 70.88 ml/min; Glucose 90 mg/dL (74-106); Magnesium 1.3 mg/dL (1.6-2.6); Potassium 3.6 mmol/L (3.5-5.1); Sodium Level 137 mmol/L (136-145)
--- NOTE | 2022-11-29 07:31 | PCM.PN.SRG ---
Subjective Subjective Patient complains of abdominal pain/abdominal spasms. Objective Data Objective Data Vital Signs: Vital Signs Temp Pulse Resp BP Pulse Ox O2 Del Method O2 Flow Rate 98.4 F 111 H 18 113/68 94 Room Air 2 11/29/22 04:51 11/29/22 04:51 11/29/22 04:51 11/29/22 04:51 11/29/22 06:59 11/29/22 06:59 11/29/22 04:51 Oxygen Flow Rate (L/min) 2 Oxygen Delivery Method Room Air Weight: 170 lb 0.01 oz Body Mass Index (BMI) 29.2 Intake & Output: Intake and Output for Last 24 Hours 11/27/22 11/28/22 11/29/22 23:59 23:59 23:59 Intake Total 1619 5885.5 / 5885.5 1404 / 1404 Output Total 188 / 1882 335 / 335 Balance 1619 4002.5 / 4002.5 1069 / 1069 Lab / Micro Data Result Diagrams: 11/29/22 06:10 11/29/22 06:10 Labs: Laboratory Results - last 24 hr 11/28/22 08:05: Sodium 137, Potassium 3.8, Chloride 102, Carbon Dioxide 26.0, Anion Gap 9, BUN 11, Creatinine 0.95, Estim Creat Clear Calc 61.18, Est GFR (MDRD) Af Amer 80, Est GFR (MDRD) Non-Af 66, BUN/Creatinine Ratio 11.5, Glucose 95, Calcium 9.2, Total Bilirubin 1.50 H, Direct Bilirubin 0.95 H, AST 18, ALT 33, Alkaline Phosphatase 84, Total Protein 7.0, Albumin 2.6 L, Globulin 4.4 H 11/28/22 08:05: WBC 10.7, RBC 5.03, Hgb 13.7, Hct 42.3, MCV 84.1, MCH 27.2, MCHC 32.4, RDW Std Deviation 42.5, RDW Coeff of Shelton 13.8, Plt Count 283, MPV 8.9, Immature Gran % (Auto) 0.400, Neut % (Auto) 85.7 H, Lymph % (Auto) 7.4 L, Halifax % (Auto) 5.9, Eos % (Auto) 0.3, Baso % (Auto) 0.3, Absolute Neuts (auto) 9.2 H, Absolute Lymphs (auto) 0.79 L, Nucleated RBC % 0 11/28/22 23:42: WBC 11.4 H, RBC 4.60, Hgb 12.7, Hct 38.8, MCV 84.3, MCH 27.6, MCHC 32.7, RDW Std Deviation 43.4, RDW Coeff of Shelton 14.1, Plt Count 297, MPV 9.0, Immature Gran % (Auto) 0.500, Neut % (Auto) 88.6 H, Lymph % (Auto) 4.9 L, Halifax % (Auto) 5.6, Eos % (Auto) 0.0, Baso % (Auto) 0.4, Absolute Neuts (auto) 10.1 H, Absolute Lymphs (auto) 0.56 L, Nucleated RBC % 0 11/28/22 23:42: Lactic Acid 1.6 11/28/22 23:42: Sodium 139, Potassium 3.8, Chloride 105, Carbon Dioxide 24.0, Anion Gap 10, BUN 10, Creatinine 0.79, Estim Creat Clear Calc 73.57, Est GFR (MDRD) Af Amer 99, Est GFR (MDRD) Non-Af 82, BUN/Creatinine Ratio 12.6, Glucose 102, Calcium 8.0 L, Total Bilirubin 4.00 H, AST 24, ALT 26, Alkaline Phosphatase 50, Total Protein 5.2 L, Albumin 1.8 L, Globulin 3.4, Albumin/Globulin Ratio 0.5 L 11/29/22 06:10: WBC 13.2 H, RBC 4.54, Hgb 12.2, Hct 38.1, MCV 83.9, MCH 26.9 L, MCHC 32.0, RDW Std Deviation 43.8, RDW Coeff of Shelton 14.2, Plt Count 313, MPV 9.3, Immature Gran % (Auto) 1.000 H, Neut % (Auto) 87.8 H, Lymph % (Auto) 6.4 L, Halifax % (Auto) 4.3, Eos % (Auto) 0.0, Baso % (Auto) 0.5, Absolute Neuts (auto) 11.6 H, Absolute Lymphs (auto) 0.84, Nucleated RBC % 0 11/29/22 06:10: Sodium 137, Potassium 3.6, Chloride 105, Carbon Dioxide 23.0, Anion Gap 9, BUN 11, Creatinine 0.82, Estim Creat Clear Calc 70.88, Est GFR (MDRD) Af Amer 95, Est GFR (MDRD) Non-Af 78, BUN/Creatinine Ratio 13.4, Glucose 90, Calcium 8.1 L, Phosphorus 3.0, Magnesium 1.3 L ABG Data ABG results: ABG 11/28/22 23:53 Specimen Type OMERO VBG pH 7.39 VBG pO2 176 H VBG HCO3 22 VBG Total CO2 23 VBG O2 Sat (Calc) 100 H VBG Base Excess -3 L POC Mix VBG pCO2 Pt Tmp 36.2 L O2 Delivery Device Cannula Liter Flow 2.0 Radiography Diagnostic Testing: Radiology Impression Abdomen/Pelvis CT 11/28/22 09:33 IMPRESSION: Sigmoid diverticulitis with worsening perforation and pneumoperitoneum. No obstruction or abscess. Wall thickening of small bowel loops suggesting enteritis. Hiatal hernia. Gallstone. Electronically Signed: Zenon Culver MD at 10:28 EST , ADDENDUM: 11/28/22 1052 IMPRESSION: Sigmoid diverticulitis with worsening perforation and pneumoperitoneum. No obstruction or abscess. Wall thickening of small bowel loops suggesting enteritis. Hiatal hernia. Gallstone. N.B. : The above Results were Read Back by Zenon Culver MD to DR Barbie Thompson MD, and understanding confirmed on 11/28/2022 10:45:41 (ET). Electronically Signed: Zenon Culver MD at 10:28 EST , Rhythm Strip Rhythm Strip: Sinus Rhythm Rate: 80 Ectopy: None Physical Exam Resp normal respiratory effort Cardio regular rate GI GI Narrative: Abdomen: Soft, nondistended, tender near incision's dressed clean dry and intact?closed with cheryl in Betadine soaked mayela, no peritoneal signs, colostomy pink, no flatus or stool in bag, bilateral JPs are serosanguineous Assessment & Plan Assessment/Plan (1) History of open sigmoidectomy: (2) Status post Kira procedure: (3) Colon necrosis: PLAN: Plan Continue n.p.o./IV fluids until patient has bowel function via the ostomy. We will give patient some Valium 5 mg p.o. every 8 hours as needed for muscle spasms, continue pain control. Continue IV Zosyn Continue JPs/wound care?we will plan to remove the Betadine mayela x5 probably tomorrow Encourage out of bed to chair/ambulation/IS Lovenox for DVT prophylaxis. Barbie Thompson M.D. Pager: [phone] [facility] [address] [place] [address], [facility], [address] [place] [address] Office: [phone]
[2022-11-29] MEDS: Ketorolac 30 MG/ML Syringe IV (07:59)
[2022-11-29] MEDS: diazePAM 5 MG Tablet PO ×2 (07:59→15:21)
--- NOTE | 2022-11-29 08:49 | PN.HOSP_ITS ---
Reason for Visit Reason for Visit: Diagnoses Intussusception (11/24/22) Diverticulitis of large intestine with perforation and abscess without bleeding (11/24/22) Subjective Subjective Feels much better today. Able to raise her LE in bed w/o difficulty today. Objective Data Objective Data Vital Signs: Vital Signs Temp Pulse Resp BP Pulse Ox O2 Del Method O2 Flow Rate 36.3 C L 92 18 106/66 94 Nasal Cannula 2 11/29/22 08:08 11/29/22 08:11 11/29/22 08:11 11/29/22 08:08 11/29/22 08:08 11/29/22 08:11 11/29/22 08:11 Oxygen Flow Rate (L/min) 2 Oxygen Delivery Method Nasal Cannula Weight: 77.111 kg Body Mass Index (BMI) 29.2 Intake & Output: Intake and Output for Last 24 Hours 11/27/22 11/28/22 11/29/22 23:59 23:59 23:59 Intake Total 1619 5885.5 / 5885.5 1404 / 1404 Output Total 1883 / 1883 335 / 335 Balance 1619 4002.5 / 4002.5 1069 / 1069 Lab / Micro Data Result Diagrams: 11/29/22 06:10 11/29/22 06:10 Labs: Laboratory Results - last 24 hr 11/28/22 23:42: WBC 11.4 H, RBC 4.60, Hgb 12.7, Hct 38.8, MCV 84.3, MCH 27.6, MCHC 32.7, RDW Std Deviation 43.4, RDW Coeff of Shelton 14.1, Plt Count 297, MPV 9.0, Immature Gran % (Auto) 0.500, Neut % (Auto) 88.6 H, Lymph % (Auto) 4.9 L, Mccreary % (Auto) 5.6, Eos % (Auto) 0.0, Baso % (Auto) 0.4, Absolute Neuts (auto) 10.1 H, Absolute Lymphs (auto) 0.56 L, Nucleated RBC % 0 11/28/22 23:42: Lactic Acid 1.6 11/28/22 23:42: Sodium 139, Potassium 3.8, Chloride 105, Carbon Dioxide 24.0, Anion Gap 10, BUN 10, Creatinine 0.79, Estim Creat Clear Calc 73.57, Est GFR (MDRD) Af Amer 99, Est GFR (MDRD) Non-Af 82, BUN/Creatinine Ratio 12.6, Glucose 102, Calcium 8.0 L, Total Bilirubin 4.00 H, AST 24, ALT 26, Alkaline Phosphatase 50, Total Protein 5.2 L, Albumin 1.8 L, Globulin 3.4, Albumin/Globulin Ratio 0.5 L 11/29/22 06:10: WBC 13.2 H, RBC 4.54, Hgb 12.2, Hct 38.1, MCV 83.9, MCH 26.9 L, MCHC 32.0, RDW Std Deviation 43.8, RDW Coeff of Shelton 14.2, Plt Count 313, MPV 9.3, Immature Gran % (Auto) 1.000 H, Neut % (Auto) 87.8 H, Lymph % (Auto) 6.4 L, Mccreary % (Auto) 4.3, Eos % (Auto) 0.0, Baso % (Auto) 0.5, Absolute Neuts (auto) 11.6 H, Absolute Lymphs (auto) 0.84, Nucleated RBC % 0 11/29/22 06:10: Sodium 137, Potassium 3.6, Chloride 105, Carbon Dioxide 23.0, Anion Gap 9, BUN 11, Creatinine 0.82, Estim Creat Clear Calc 70.88, Est GFR (MDRD) Af Amer 95, Est GFR (MDRD) Non-Af 78, BUN/Creatinine Ratio 13.4, Glucose 90, Calcium 8.1 L, Phosphorus 3.0, Magnesium 1.3 L ABG Data ABG results: ABG 11/28/22 23:53 Specimen Type OMERO VBG pH 7.39 VBG pO2 176 H VBG HCO3 22 VBG Total CO2 23 VBG O2 Sat (Calc) 100 H VBG Base Excess -3 L POC Mix VBG pCO2 Pt Tmp 36.2 L O2 Delivery Device Cannula Liter Flow 2.0 Radiography Diagnostic Testing: Radiology Impression Abdomen/Pelvis CT 11/28/22 09:33 IMPRESSION: Sigmoid diverticulitis with worsening perforation and pneumoperitoneum. No obstruction or abscess. Wall thickening of small bowel loops suggesting enteritis. Hiatal hernia. Gallstone. Electronically Signed: Zeonn Culver MD at 10:28 EST , ADDENDUM: 11/28/22 1052 IMPRESSION: Sigmoid diverticulitis with worsening perforation and pneumoperitoneum. No obstruction or abscess. Wall thickening of small bowel loops suggesting enteritis. Hiatal hernia. Gallstone. N.B. : The above Results were Read Back by Zenon Culver MD to DR Barbie Thompson MD, and understanding confirmed on 11/28/2022 10:45:41 (ET). Electronically Signed: Zenon Culver MD at 10:28 EST , Rhythm Strip Rhythm Strip: Sinus Rhythm Rate: 80 Ectopy: None Physical Exam Const alert and no apparent distress Resp normal respiratory effort, no retractions, no use of accessory muscles and clear to auscultation bilaterally Cardio regular rate, regular rhythm, S1 normal heart sound and S2 normal heart sound GI GI Narrative: incision bandaged--did not remove. ostomy on left with no stool. Extremity normal to inspection Assessment & Plan Assessment/Plan (1) Diverticulitis of colon with perforation: PLAN: Acute severe diverticulitis with microperforation, with initial probable intussusception Seen on initial CT of the abdomen pelvis; intussusception appears resolved on repeat CT 11/28: open sigmoidectomy, Kira's procedure Continue with IV Zosyn, IV fluids, NPO (2) Hypotension: PLAN: currently stable continue IVF caution with narcotics PLAN: Plan Chronic medical conditions: * GERD, continue PPI * Asthma, not in acute exacerbation, will continue on breathing treatments as needed * Right lower extremity rash, unclear etiology, continue with topical steroid * Anxiety, continue on Prozac VTE proph: SCDs Will sign off. DW Dr. Thompson. Please reconsult if new issues arise or call for any questions. I will be onservice through the . Charges/Coding Visit Charges Inpatient E&M: 22301 Subs Hosp L2
--- NOTE | 2022-11-29 09:23 | WOUNDNOTE ---
In to assess the abdominal dressing and assess stoma to the left lower abdomen. Pt is POD#1 open sigmoidectomy with Cortez's Procedure. present at bedside. stoma appears very dark red in color. there is some serosanguineous drainage noted in the appliance. some bowel sweat noted. no flatus or stool noted. appliance intact. abdominal dressing is D&I. plan to change abdominal dressing and ALFREDO dressings later today. surgery was last evening. will plan to change appliance tomorrow with patient and . discussed home health care as well for a while at home. pt states she has a brother and cousin who are nurses as well. pt appears drowsy at this time. states was just medicated. will plan more teaching later today once patient is more awake. teaching packet given.
[2022-11-29] MEDS: Magnesium Sulfate 4gm/100mL 4 GM/100 ML IV.SOLN. IV (09:36)
[2022-11-29] MEDS: FLUTICASONE/VILANTEROL 1 EACH BLST.W.DEV INHALATION (09:39)
[2022-11-29] MEDS: Clotrimazole/Betamethasone 1 Tube 1 APPLIC TOPICAL (09:39)
[2022-11-29] MEDS: Enoxaparin 40 MG/0.4 ML Syringe SC (09:40)
[2022-11-29] MEDS: FLUoxetine 20 MG Capsule PO (09:41)
[2022-11-29] MEDS: Ketorolac 15 MG/ML Vial IV ×2 (13:57→20:43)
--- NOTE | 2022-11-29 14:08 | CHAPLAIN ---
Type of Pastoral Visit _x__ Initial Visit ___ Follow-up Visit ___ On-call Visit ___ General Patient Visit ___ Spiritual Assessment ___ Family Conference ___ Bereavement ___ Rapid Response ___ Code Blue ___ Other (describe below) Pastoral Care Referral From ___ Patient _x__ Family ___ Nurse ___ Physician ___ Live In Caregiver ___ Manager Pharmaceutical ___ Other (describe below) Sacrament/Intervention _x__ Active listening ___ Anointing ___ Mosque ___ Bereavement ___ Communion _x__ Jayda exploration ___ ___ Life review _x__ Prayer ___ Reconciliation ___ Sacrament of Sick _x__ Supportive presence ___ Wedding ___ Other (describe below) Pastoral Comments patient had DR in consultation and thus returned later; introduction of self and role; pt accepted supportive presence as well as for her spouse; pt welcomes prayer and presence; no other immediate needs
[2022-11-29] MEDS: 0.9% Saline Lock 10 ML Syringe IV ×3 (14:57→21:07)
[2022-11-29] MEDS: Ibuprofen 600 MG Tablet PO (15:21)
[2022-11-30] VITALS (7 sets, daily range): BP systolic 105–129; BP diastolic 67–74; PULSE 72–91; RESP 15–20; TEMP 36.4–36.9; O2SAT 93–98
[2022-11-30] MEDS: 0.9% Saline Lock 10 ML Syringe IV ×2 (01:53→06:02)
[2022-11-30] MEDS: Ketorolac 15 MG/ML Vial IV ×4 (01:53→20:12)
[2022-11-30] MEDS: Ibuprofen 600 MG Tablet PO (02:08)
[2022-11-30] MEDS: 0.45% Normal Saline 1,000 ML 120 ML IV (02:08)
[2022-11-30] MEDS: HYDROmorphone 0.5 MG/0.5 ML SYRINGE IV (06:01)
[2022-11-30 06:26] LABS: Absolute Lymphocyte Count 1.06 X10^3/uL (0.83-4.51); Absolute Neutrophil Count 11.8 X10^3/uL (2.0-7.7); Basophil# 0.05 X10^3/uL; Basophil% 0.4 % (0-1); Eosinophil# 0.11 X10^3/uL; Eosinophils% 0.8 % (0-5); Hematocrit 33.3 % (37-47); Hemoglobin 10.7 g/dL (12.0-15.0); Lymphocyte # 1.06 X10^3/ul (0.83-4.51); Lymphocyte % 7.7 % (19-41); Mean Corp Hgb Conc 32.1 g/dL (32-36); Mean Corpuscular Hgb 27.4 pg (27.0-32.0); Mean Corpuscular Volume 85.2 fL (81-99); Mean Platelet Vol. 9.3 fl (6.2-12.0); Monocyte% 3.6 % (0-10); NRBC Flagged by Analyzer 0 % (0-5); Neutrophil # 11.82 X10^3/uL (2.7-7.7); Neutrophil % 85.5 % (47-70); POSITIVE MORPHOLOGY YES; Platelet Count 296 K/mm3 (150-450); RBC Distribution Width CV 14.5 % (11.6-14.6); RBC Distribution Width SD 45.1 fl (35.1-43.9); Red Blood Count 3.91 M/mm3 (4.2-5.4); White Blood Count 13.8 K/mm3 (4.4-11.0)
[2022-11-30 06:31] LABS: Differential Indicated SCAN CRITERIA MET
[2022-11-30 06:56] LABS: Anion Gap 8 (5-15); BUN 12 mg/dL (7-18); BUN/Creat Ratio 18.4 RATIO (10-20); Calcium,Total 8.2 mg/dL (8.5-10.1); Chloride 106 mmol/L (98-107); Creatinine, Serum 0.65 mg/dL (0.55-1.02); EST Glomerular Filtration Rate 102 mL/min (>60); Est Glom Filt Rate - Afr Amer 123 mL/min (>60); Estimated Creatinine Clearance 89.41 ml/min; Glucose 70 mg/dL (74-106); Potassium 3.7 mmol/L (3.5-5.1); Sodium Level 140 mmol/L (136-145)
[2022-11-30] MEDS: diazePAM 5 MG Tablet PO (08:03)
--- NOTE | 2022-11-30 08:38 | PCM.PN.SRG ---
Subjective Subjective Pt pain is controlled, no BF via stoma, ALFREDO ss Objective Data Objective Data Vital Signs: Vital Signs Temp Pulse Resp BP Pulse Ox O2 Del Method O2 Flow Rate 97.5 F L 88 16 110/67 94 Nasal Cannula 2 11/30/22 07:32 11/30/22 07:32 11/30/22 07:32 11/30/22 07:32 11/30/22 07:32 11/30/22 07:32 11/30/22 07:32 Oxygen Flow Rate (L/min) 2 Oxygen Delivery Method Nasal Cannula Weight: 170 lb 0.01 oz Body Mass Index (BMI) 29.2 Intake & Output: Intake and Output for Last 24 Hours 11/28/22 11/29/22 11/30/22 23:59 23:59 23:59 Intake Total 6135.5 / 6135.5 3764 / 3764 1632 / 1632 Output Total 1883 / 1883 1935 / 3000 1500 / 1500 Balance 4252.5 / 4252.5 1829 / 764 132 / 132 Lab / Micro Data Result Diagrams: 11/30/22 05:40 11/30/22 05:40 Labs: Laboratory Results - last 24 hr 11/30/22 05:40: WBC 13.8 H, RBC 3.91 L, Hgb 10.7 L, Hct 33.3 L, MCV 85.2, MCH 27.4, MCHC 32.1, RDW Std Deviation 45.1 H, RDW Coeff of Shelton 14.5, Plt Count 296, MPV 9.3, Immature Gran % (Auto) 2.000 H, Neut % (Auto) 85.5 H, Lymph % (Auto) 7.7 L, Power % (Auto) 3.6, Eos % (Auto) 0.8, Baso % (Auto) 0.4, Absolute Neuts (auto) 11.8 H, Absolute Lymphs (auto) 1.06, Nucleated RBC % 0 11/30/22 05:40: Sodium 140, Potassium 3.7, Chloride 106, Carbon Dioxide 26.0, Anion Gap 8, BUN 12, Creatinine 0.65, Estim Creat Clear Calc 89.41, Est GFR (MDRD) Af Amer 123, Est GFR (MDRD) Non-Af 102, BUN/Creatinine Ratio 18.4, Glucose 70 L, Calcium 8.2 L Micro: Microbiology 02/19/23 Unknown Aspirate - Abdominal Gram Stain - Final 11/28/22 Unknown Aspirate - Abdominal Wound Culture - Preliminary Klebsiella oxytoca Alpha hemolytic organism Rhythm Strip Rhythm Strip: Sinus Rhythm Rate: 80 Ectopy: None Physical Exam Resp normal respiratory effort Cardio regular rate GI GI Narrative: Abdomen: Soft, nondistended, tender near incision's dressed clean dry and intact?closed with cheryl in Betadine soaked mayela, no peritoneal signs, colostomy pink, no flatus or stool in bag, bilateral JPs are serosanguineous Assessment & Plan Assessment/Plan (1) History of open sigmoidectomy: (2) Status post Kira procedure: (3) Colon necrosis: PLAN: Plan Continue sips/chips/IV fluids until patient has bowel function via the ostomy. We will give patient some Valium 5 mg p.o. every 8 hours as needed for muscle spasms, continue pain control. Cultures growing Klebsiella/alphahemolytic organism?intermediate to Zosyn will change to meropenem 2 g IV every 8 hours until the other 1 resulted. Continue JPs/wound care?we will plan to remove the Betadine mayela today Encourage out of bed to chair/ambulation/IS Lovenox for DVT prophylaxis. Barbie Thompson M.D. Pager: [phone] [facility] [address] [place] [address], [facility], [address] [place] [address] Office: [phone]
[2022-11-30] MEDS: Enoxaparin 40 MG/0.4 ML Syringe SC (08:46)
[2022-11-30] MEDS: FLUoxetine 20 MG Capsule PO (08:46)
[2022-11-30] MEDS: Clotrimazole/Betamethasone 1 Tube 1 APPLIC TOPICAL (08:47)
[2022-11-30] MEDS: FLUTICASONE/VILANTEROL 1 EACH BLST.W.DEV INHALATION (08:48)
--- NOTE | 2022-11-30 11:11 | CASEMGMT ---
KAVON BRADSHAW in to pt room, pt present at bedside. Discussed homegoing needs. Pt has a brother who is a nurse and another friend who works here at the hospital. She states they are available to assist. Spoke with her regarding HHC. Pt is off work right now short term for his medical issues. Pt is not sure if she wants HHC right now. They will discuss. Provided a list of HHC providers including quality and resource use data and consistent with the patient?s preferred geographic region, medical needs, and insurance network were provided from the [employer]. Pt is currently using a walker in the room to ambulate, she does not have this at home. She is not sure if she will need one at id. She is aware this RN CM can assist her with this as well. KAVON CM to check back after pt and have had time to discuss.
[2022-11-30] MEDS: 0.45% Normal Saline 1,000 ML 100 ML IV ×2 (12:15→22:04)
--- NOTE | 2022-11-30 13:54 | WOUNDNOTE ---
Pt resting in bed awake. appears much perkier this afternoon. patient states she sat out in the lobby earlier in the sun and feels so much better. there are visitors present at bedside. plan to do ostomy appliance change later today and removal of telfa mayela along incision. will be present for teaching. no further needs voiced at this time.
--- NOTE | 2022-11-30 15:54 | WOUNDNOTE ---
wound/stoma photo: abdomen
--- NOTE | 2022-11-30 15:55 | WOUNDNOTE ---
In to do colostomy teaching with patient and . removed the appliance. no stool noted. small amount of serousanguineous drainage noted. stoma sits just above the skin level. stoma is beefy red and moist. peristomal skin is intact. stoma slightly oval in shape. cleansed skin with warm water. pat dry. applied a new 2 piece flat [facility] appliance with a small amount of stoma paste. made pattern of stoma size for patient. educated patient that the stoma size can change especially the first 6-8 weeks. pt tolerated appliance change well. patient and very appreciative of care. will continue education with both.
[2022-12-01 02:27] VITALS: BP 113/72; PULSE 64; RESP 14; TEMP 36.7; O2SAT 92
[2022-12-01] MEDS: Ketorolac 15 MG/ML Vial IV ×4 (02:27→20:23)
[2022-12-01 07:45] VITALS: O2SAT 93
--- NOTE | 2022-12-01 07:58 | PN.SURG_ITS ---
Subjective Subjective pain controlled, no flatus Objective Data Objective Data Vital Signs: Vital Signs Temp Pulse Resp BP Pulse Ox O2 Del Method O2 Flow Rate 98.0 F 64 14 113/72 92 Room Air 2 12/01/22 02:27 12/01/22 02:27 12/01/22 02:27 12/01/22 02:27 12/01/22 02:27 12/01/22 02:27 11/30/22 07:32 Oxygen Flow Rate (L/min) 2 Oxygen Delivery Method Room Air Weight: 170 lb 0.01 oz Body Mass Index (BMI) 29.2 Intake & Output: Intake and Output for Last 24 Hours 11/29/22 11/30/22 12/01/22 23:59 23:59 23:59 Intake Total 3764 / 3764 3199.67 / 3199.67 140 / 140 Output Total 1935 / 3000 2885 / 2895 520 / 520 Balance 1829 / 764 314.67 / 304.67 -380 / -380 Lab / Micro Data Result Diagrams: 12/02/22 06:25 12/02/22 06:25 Micro: Microbiology 11/28/22 Unknown Aspirate - Abdominal Gram Stain - Final 11/28/22 Unknown Aspirate - Abdominal Wound Culture - Preliminary Klebsiella oxytoca Alpha hemolytic organism Rhythm Strip Rhythm Strip: Sinus Rhythm Rate: 80 Ectopy: None Physical Exam Resp normal respiratory effort Cardio regular rate GI GI Narrative: Abdomen: Soft, nondistended, tender near incision's dressed clean dry and intact?closed with cheryl, no peritoneal signs, colostomy pink, no flatus or stool in bag, bilateral JPs are serosanguineous Assessment & Plan Assessment/Plan (1) History of open sigmoidectomy: (2) Status post Kira procedure: (3) Colon necrosis: PLAN: Plan await BF We will give patient some Valium 5 mg p.o. every 8 hours as needed for muscle spasms, continue pain control. Cultures growing Klebsiella/alphahemolytic organism?continue meropenem 2 g IV every 8 hours Continue JPs/wound care?will plan to remove when WBC wnl Continue out of bed to chair/ambulation/IS Lovenox for DVT prophylaxis. Barbie Thompson M.D. Pager: [phone] [facility] [address] [place] [address], [facility], [address] [place] [address] Office: [phone]
[2022-12-01 08:20] LABS: Absolute Lymphocyte Count 1.56 X10^3/uL (0.83-4.51); Absolute Neutrophil Count 11.6 X10^3/uL (2.0-7.7); Basophil# 0.07 X10^3/uL; Basophil% 0.5 % (0-1); Eosinophil# 0.12 X10^3/uL; Eosinophils% 0.8 % (0-5); Hematocrit 32.1 % (37-47); Hemoglobin 10.4 g/dL (12.0-15.0); Lymphocyte # 1.56 X10^3/ul (0.83-4.51); Lymphocyte % 10.8 % (19-41); Mean Corp Hgb Conc 32.4 g/dL (32-36); Mean Corpuscular Hgb 27.4 pg (27.0-32.0); Mean Corpuscular Volume 84.7 fL (81-99); Mean Platelet Vol. 9.1 fl (6.2-12.0); Monocyte# 0.56 X10^3/uL; Monocyte% 3.9 % (0-10); NRBC Flagged by Analyzer 0 % (0-5); Neutrophil # 11.63 X10^3/uL (2.7-7.7); Neutrophil % 80.7 % (47-70); POSITIVE MORPHOLOGY YES; Platelet Count 345 K/mm3 (150-450); RBC Distribution Width CV 14.6 % (11.6-14.6); RBC Distribution Width SD 45.1 fl (35.1-43.9); Red Blood Count 3.79 M/mm3 (4.2-5.4); White Blood Count 14.4 K/mm3 (4.4-11.0)
[2022-12-01 08:25] LABS: Differential Indicated SCAN CRITERIA MET
[2022-12-01] MEDS: 0.45% Normal Saline 1,000 ML 80 ML IV ×2 (08:26→20:23)
[2022-12-01 08:46] VITALS: BP 105/69; PULSE 61; RESP 14; TEMP 36.5; O2SAT 94
[2022-12-01 08:57] LABS: BUN 13 mg/dL (7-18); Creatinine, Serum 0.56 mg/dL (0.55-1.02); EST Glomerular Filtration Rate 122 mL/min (>60); Estimated Creatinine Clearance 103.78 ml/min; Glucose 59 mg/dL (74-106)
[2022-12-01 08:58] LABS: Anion Gap 10 (5-15); BUN/Creat Ratio 23.3 RATIO (10-20); Calcium,Total 8.4 mg/dL (8.5-10.1); Chloride 108 mmol/L (98-107); Est Glom Filt Rate - Afr Amer 148 mL/min (>60); Magnesium 2.2 mg/dL (1.6-2.6); Potassium 3.1 mmol/L (3.5-5.1); Sodium Level 140 mmol/L (136-145)
[2022-12-01 09:49] LABS: Differential Comment SCANNED
[2022-12-01] MEDS: FLUTICASONE/VILANTEROL 1 EACH BLST.W.DEV INHALATION (10:35)
[2022-12-01] MEDS: Potassium Chloride Oral Tablet 20 MEQ 40 MEQ PO (10:36)
[2022-12-01] MEDS: Enoxaparin 40 MG/0.4 ML Syringe SC (10:37)
[2022-12-01] MEDS: FLUoxetine 20 MG Capsule PO (10:38)
[2022-12-01] MEDS: Acetaminophen 325 MG Tablet 650 MG PO (11:07)
[2022-12-01] MEDS: oxyCODONE 5 MG Tablet PO (11:07)
--- NOTE | 2022-12-01 14:46 | CASEMGMT ---
Addendum entered by Susan Kennedy 12/01/22 15:29: Pt asked for RN CM, pt now states she thinks she has secured a walker from family. Pt has decided to go with [facility]. She chose [facility]. TC to Radha, referral made. Will await acceptance. Original Note: RN AUGUSTINE in to pt room to discuss dc planning. Pt is sleeping and asked if RN CM could come back. Rx on chart for FWW for surgeon to sign and message sent with request.
[2022-12-01 15:00] VITALS: BP 109/71; PULSE 54; RESP 16; TEMP 36.6; O2SAT 94
[2022-12-01 15:08] VITALS: BP 109/71; PULSE 54; RESP 12; TEMP 36.6; O2SAT 94
--- NOTE | 2022-12-01 15:23 | WOUNDNOTE ---
Pt had been up and ambulated a couple times in the rocha. there is some bowel sweat noted, but no flatus yet. will monitor. pain appears to be well controlled.
[2022-12-01 20:25] VITALS: BP 116/79; PULSE 62; RESP 14; TEMP 36.5; O2SAT 98
[2022-12-02 01:23] VITALS: BP 134/74; PULSE 60; RESP 17; TEMP 36.7; O2SAT 96
[2022-12-02] MEDS: Ketorolac 15 MG/ML Vial IV ×4 (03:54→20:50)
[2022-12-02 06:40] LABS: Hematocrit 32.9 % (37-47); Hemoglobin 10.7 g/dL (12.0-15.0); Mean Corp Hgb Conc 32.5 g/dL (32-36); Mean Corpuscular Hgb 26.9 pg (27.0-32.0); Mean Corpuscular Volume 82.7 fL (81-99); Mean Platelet Vol. 8.9 fl (6.2-12.0); POSITIVE COUNT YES; POSITIVE MORPHOLOGY YES; Platelet Count 387 K/mm3 (150-450); RBC Distribution Width CV 14.8 % (11.6-14.6); RBC Distribution Width SD 45.1 fl (35.1-43.9); Red Blood Count 3.98 M/mm3 (4.2-5.4); White Blood Count 13.4 K/mm3 (4.4-11.0)
[2022-12-02 06:53] LABS: Differential Indicated MANUAL DIFF
[2022-12-02 07:04] LABS: Anion Gap 13 (5-15); BUN 10 mg/dL (7-18); BUN/Creat Ratio 19.8 RATIO (10-20); Calcium,Total 8.3 mg/dL (8.5-10.1); Chloride 108 mmol/L (98-107); EST Glomerular Filtration Rate 137 mL/min (>60); Est Glom Filt Rate - Afr Amer 166 mL/min (>60); Estimated Creatinine Clearance 116.24 ml/min; Glucose 72 mg/dL (74-106); Magnesium 1.9 mg/dL (1.6-2.6); Phosphorus 1.9 mg/dL (2.5-4.9); Potassium 3.2 mmol/L (3.5-5.1); Sodium Level 141 mmol/L (136-145)
[2022-12-02] MEDS: diazePAM 5 MG Tablet PO ×2 (08:21→21:25)
[2022-12-02] MEDS: FLUoxetine 20 MG Capsule PO (08:45)
[2022-12-02] MEDS: Enoxaparin 40 MG/0.4 ML Syringe SC (08:45)
--- NOTE | 2022-12-02 08:45 | PN.SURG_ITS ---
Subjective Subjective pt hasn't been able to sleep, up to bathroom often, +flatus in bag, ALFREDO ss Objective Data Objective Data Vital Signs: Vital Signs Temp Pulse Resp BP Pulse Ox O2 Del Method O2 Flow Rate 98.1 F 60 17 134/74 H 96 Room Air 94 12/02/22 01:23 12/02/22 01:23 12/02/22 01:23 12/02/22 01:23 12/02/22 01:23 12/02/22 01:23 12/01/22 08:46 Oxygen Flow Rate (L/min) 94 Oxygen Delivery Method Room Air Weight: 170 lb 0.01 oz Body Mass Index (BMI) 29.2 Intake & Output: Intake and Output for Last 24 Hours 11/30/22 12/01/22 12/02/22 23:59 23:59 23:59 Intake Total 3199.67 / 3199.67 2486 / 2486 340 / 340 Output Total 2885 / 2895 555 / 1175 1030 / 1030 Balance 314.67 / 304.67 1931 / 1311 -690 / -690 Lab / Micro Data Result Diagrams: 12/02/22 06:25 12/02/22 06:25 Labs: Laboratory Results - last 24 hr 12/01/22 07:55: Differential Comment SCANNED 12/01/22 07:55: Sodium 140, Potassium 3.1 L, Chloride 108 H, Carbon Dioxide 22.0, Anion Gap 10, BUN 13, Creatinine 0.56, Estim Creat Clear Calc 103.78, Est GFR (MDRD) Af Amer 148, Est GFR (MDRD) Non-Af 122, BUN/Creatinine Ratio 23.3 H, Glucose 59 L, Calcium 8.4 L, Magnesium 2.2 12/02/22 06:25: WBC 13.4 H, RBC 3.98 L, Hgb 10.7 L, Hct 32.9 L, MCV 82.7, MCH 26.9 L, MCHC 32.5, RDW Std Deviation 45.1 H, RDW Coeff of Shelton 14.8 H, Plt Count 387, MPV 8.9, Neut % (Auto) Not Reportable 12/02/22 06:25: Sodium 141, Potassium 3.2 L, Chloride 108 H, Carbon Dioxide 20.0 L, Anion Gap 13, BUN 10, Creatinine 0.50 L, Estim Creat Clear Calc 116.24, Est GFR (MDRD) Af Amer 166, Est GFR (MDRD) Non-Af 137, BUN/Creatinine Ratio 19.8, Glucose 72 L, Calcium 8.3 L, Phosphorus 1.9 L, Magnesium 1.9 Micro: Microbiology 11/28/22 Unknown Aspirate - Abdominal Gram Stain - Final 11/28/22 Unknown Aspirate - Abdominal Wound Culture - Final Klebsiella oxytoca Abiotrophia defectiva Escherichia coli Rhythm Strip Rhythm Strip: Sinus Rhythm Rate: 80 Ectopy: None Physical Exam Resp normal respiratory effort Cardio regular rate GI GI Narrative: Abdomen: Soft, nondistended, tender near incision's dressed clean dry and intact?closed with cheryl, no peritoneal signs, colostomy pink, +flatus and small amount of liquid stool in bag, bilateral JPs are serosanguineous Assessment & Plan Assessment/Plan (1) History of open sigmoidectomy: (2) Status post Kira procedure: (3) Colon necrosis: PLAN: Plan advance clears We will give patient some Valium 5 mg p.o. every 8 hours as needed for muscle spasms, continue pain control. Cultures growing Klebsiella/alphahemolytic organism?continue meropenem 2 g IV every 8 hours Continue JPs/wound care?will plan to remove when WBC wnl Continue out of bed to chair/ambulation/IS Lovenox for DVT prophylaxis. Barbie Thompson M.D. Pager: [phone] [facility] [address] [place] [address], [facility], [address] [place] [id number] Office: [phone]
[2022-12-02] MEDS: FLUTICASONE/VILANTEROL 1 EACH BLST.W.DEV INHALATION (08:46)
[2022-12-02 08:52] VITALS: O2SAT 94
[2022-12-02 09:00] VITALS: BP 133/78; PULSE 55; RESP 18; TEMP 36.1; O2SAT 97
[2022-12-02 09:11] LABS: Lymphocyte 12 % (19-41); Metamyelocyte 2 % (0-1); Monocyte 6 % (0-10); Myelocyte 2 % (0-0); Neutrophil-Band 2 % (0-5); Neutrophil-Segmented 75 % (47-70); Plasma Cell 1 %; Total Cells Counted 100 (MANUAL DIFF)
[2022-12-02 09:12] LABS: Platelet Estimate ADEQUATE (ADEQ); Red Cell Morphology NORM C+C NORMAL (NORM C&C)
[2022-12-02 09:13] LABS: Absolute Lymphocyte Count 1.61 X10^3/uL (0.83-4.51); Lymphocyte # 1.61 X10^3/ul (0.83-4.51)
[2022-12-02 09:14] LABS: Absolute Neutrophil Count 10.3 X10^3/uL (2.0-7.7); Neutrophil # 10.34 X10^3/uL (2.7-7.7)
[2022-12-02] MEDS: 0.9% Saline Lock 10 ML Syringe IV ×4 (10:14→14:47)
[2022-12-02] MEDS: Ondansetron 4 MG/2 ML Vial IV (10:37)
--- NOTE | 2022-12-02 14:45 | CASEMGMT ---
Received tc from Radha at [facility], they have submitted for authorization for visits for pt and was told this could take 5-15 days. They requested it to be expedited. KAVON CM in to pt room to make pt aware of this. She is agreeable and denies any questions.
--- NOTE | 2022-12-02 14:51 | CHAPLAIN ---
Type of Pastoral Visit ___ Initial Visit _x__ Follow-up Visit ___ On-call Visit ___ General Patient Visit ___ Spiritual Assessment ___ Family Conference ___ Bereavement ___ Rapid Response ___ Code Blue ___ Other (describe below) Pastoral Care Referral From ___ Patient _x__ Family ___ Nurse ___ Physician ___ Car Customizer ___ Software Development Engineer ___ Other (describe below) Sacrament/Intervention _x__ Active listening ___ Anointing ___ Lutheran ___ Bereavement ___ Communion ___ Jayda exploration ___ ___ Life review ___ Prayer ___ Reconciliation ___ Sacrament of Sick _x__ Supportive presence ___ Wedding ___ Other (describe below) Pastoral Comments follow up visit to this patient who is wanting to get back into bed at this time and sleep; offer of support appreciated but denied at this time; spouse is with pt
[2022-12-02 15:00] VITALS: BP 135/78; PULSE 66; RESP 18; TEMP 36.3; O2SAT 97
--- NOTE | 2022-12-02 15:08 | WOUNDNOTE ---
Emptied colostomy appliance in bathroom with patient and . demonstrated how to clean the end of the pouch and different options for patient to empty the appliance. will continue education with both before discharge to home. pt did also agree to HH for a while at home as well.
[2022-12-02 20:45] VITALS: BP 136/86; PULSE 89; RESP 14; TEMP 36.7; O2SAT 96
[2022-12-02] MEDS: MELATONIN 3 MG TABLET PO (21:24)
[2022-12-03 02:21] VITALS: BP 135/78; PULSE 61; RESP 14; TEMP 36.6; O2SAT 94
[2022-12-03] MEDS: Ketorolac 15 MG/ML Vial IV ×4 (02:23→19:57)
[2022-12-03 05:58] VITALS: BMI 29.1
[2022-12-03 06:04] LABS: Hemoglobin 11.2 g/dL (12.0-15.0); Mean Corp Hgb Conc 32.9 g/dL (32-36); Mean Corpuscular Hgb 27.2 pg (27.0-32.0); Mean Corpuscular Volume 82.5 fL (81-99); Mean Platelet Vol. 8.9 fl (6.2-12.0); POSITIVE COUNT YES; POSITIVE MORPHOLOGY YES; Platelet Count 425 K/mm3 (150-450); RBC Distribution Width CV 15.1 % (11.6-14.6); RBC Distribution Width SD 45.4 fl (35.1-43.9); Red Blood Count 4.12 M/mm3 (4.2-5.4); White Blood Count 15.1 K/mm3 (4.4-11.0)
[2022-12-03 06:12] LABS: Differential Indicated MANUAL DIFF
[2022-12-03 06:30] LABS: AST(SGOT) 35 U/L (15-37); Alanine Aminotransfer ALT/SGPT 34 U/L (13-56); Albumin, Serum 1.7 g/dL (3.2-5.0); Alkaline Phosphatase 89 U/L (45-117); Anion Gap 11 (5-15); BUN 7 mg/dL (7-18); BUN/Creat Ratio 15.2 RATIO (10-20); Bilirubin, Direct 0.69 mg/dL (0.00-0.30); Calcium,Total 8.4 mg/dL (8.5-10.1); Chloride 105 mmol/L (98-107); Creatinine, Serum 0.46 mg/dL (0.55-1.02); EST Glomerular Filtration Rate 152 mL/min (>60); Est Glom Filt Rate - Afr Amer 184 mL/min (>60); Estimated Creatinine Clearance 126.35 ml/min; Globulin 3.9 g/dL (2.2-4.2); Glucose 87 mg/dL (74-106); Magnesium 1.7 mg/dL (1.6-2.6); Phosphorus 2.6 mg/dL (2.5-4.9); Potassium 3.4 mmol/L (3.5-5.1); Protein, Total 5.6 g/dL (6.4-8.2); Sodium Level 140 mmol/L (136-145)
[2022-12-03 07:00] LABS: Neutrophil-Band 8 % (0-5); Neutrophil-Segmented 55 % (47-70); Total Cells Counted 100 (MANUAL DIFF)
[2022-12-03 07:01] LABS: Lymphocyte 23 % (19-41); Metamyelocyte 1 % (0-1); Monocyte 5 % (0-10); Myelocyte 7 % (0-0); Platelet Estimate ADEQUATE (ADEQ); Promyelocyte 1 % (0-0); Red Cell Morphology NORM C+C NORMAL (NORM C&C)
[2022-12-03 07:02] LABS: Absolute Neutrophil Count 9.5 X10^3/uL (2.0-7.7); Neutrophil # 9.51 X10^3/uL (2.7-7.7)
[2022-12-03 07:03] LABS: Absolute Lymphocyte Count 3.47 X10^3/uL (0.83-4.51); Lymphocyte # 3.47 X10^3/ul (0.83-4.51)
--- NOTE | 2022-12-03 08:11 | CT_ITS ---
STUDY: CT ABDOMEN AND PELVIS WITH CONTRAST REASON FOR EXAM: Female, 52 years old. Leukocytosis, abd pain s/p sigmoidectomy/colostomy -- PO IV RADIATION DOSAGE (If Supplied By Facility): CTDIvol = ( 21.15 ) mGy, DLP = ( 1137.81 ) mGycm TECHNIQUE: Transaxial images were obtained from the dome of the diaphragm to the symphysis pubis without oral contrast. IV 100mL Isovue-300 was administered. Sagittal and coronal images were reconstructed. Individualized dose optimization techniques were used for this CT. COMPARISON: Comparison is made with prior study dated 11/28/2022. FINDINGS: There are new small bilateral pleural effusions with bibasilar atelectasis. The visualized portions of the heart are within normal limits. There is decreased attenuation of the liver consistent with steatosis. Increased density is seen within the gallbladder lumen. This may represent sludge within the gallbladder lumen. Solitary gallstone. Normal spleen. Normal pancreas. Normal bilateral adrenal glands. Normal right kidney. Normal left kidney. Normal visualized stomach. Normal small intestine. A colostomy is seen in the anterior left lower quadrant. Postoperative changes are seen within the subcutaneous tissues. A drainage catheter is seen with the tip in the right hemipelvis. A similar appearing drainage catheter seen on the left side and extending into the posterior left hemipelvis. Minimal amount of fluid is seen in the left hemipelvis adjacent to the drainage tube. No abscess collection is present. No evidence of intraperitoneal free air is seen at this time. Normal abdominal aorta. Normal inferior vena cava. Normal retroperitoneum. Normal urinary bladder. Normal abdominal wall. Normal osseous structures. CT/Abdomen/Pelvis WITH Contrast IMPRESSION: Status post sigmoidectomy with the colostomy in the anterior left lower quadrant. Drainage catheters are seen bilaterally with the tips in the region of the pelvis. Minimal free fluid is seen surrounding the tip of the left drainage catheter. No evidence of a abscess collection. Small bilateral pleural effusions with bibasilar atelectasis. Fatty infiltration of the liver. Solitary gallstone with sludge in the gallbladder lumen. Electronically Signed: Ilya Alexander MD at 12:26 EST ,
[2022-12-03] MEDS: FLUTICASONE/VILANTEROL 1 EACH BLST.W.DEV INHALATION (08:18)
--- NOTE | 2022-12-03 08:32 | PCM.PN.SRG ---
Subjective Subjective Patient have more blood out of her colostomy. Patient was able to sleep last night. Patient white blood count up to this 15 with bands, afebrile Objective Data Objective Data Vital Signs: Vital Signs Temp Pulse Resp BP Pulse Ox O2 Del Method O2 Flow Rate 97.9 F 61 14 135/78 H 94 Room Air 94 12/03/22 02:21 12/03/22 02:21 12/03/22 02:21 12/03/22 02:21 12/03/22 02:21 12/03/22 02:21 12/01/22 08:46 Oxygen Flow Rate (L/min) 94 Oxygen Delivery Method Room Air Weight: 169 lb 15.622 oz Body Mass Index (BMI) 29.1 Intake & Output: Intake and Output for Last 24 Hours 12/01/22 12/02/22 12/03/22 23:59 23:59 23:59 Intake Total 2486 / 2486 2060.6633 / 2360.6633 300 / 300 Output Total 555 / 1175 1055 / 1055 Balance 1931 / 1311 1005.6633 / 1305.6633 300 / 300 Lab / Micro Data Result Diagrams: 12/03/22 05:40 12/03/22 05:40 Labs: Laboratory Results - last 24 hr 12/02/22 06:25: Absolute Neuts (auto) 10.3 H, Absolute Lymphs (auto) 1.61, Total Counted 100, Neutrophils % (Manual) 75 H, Band Neutrophils % 2, Lymphocytes % (Manual) 12 L, Monocytes % (Manual) 6, Metamyelocytes % 2 H, Myelocytes % 2 H, Plasma Cell % (Manual) 1, Diff Path Review February, Platelet Estimate ADEQUATE, RBC Morphology NORM C+C 12/03/22 05:40: WBC 15.1 H, RBC 4.12 L, Hgb 11.2 L, Hct 34.0 L, MCV 82.5, MCH 27.2, MCHC 32.9, RDW Std Deviation 45.4 H, RDW Coeff of Shelton 15.1 H, Plt Count 425, MPV 8.9, Neut % (Auto) Not Reportable, Absolute Neuts (auto) 9.5 H, Absolute Lymphs (auto) 3.47, Total Counted 100, Neutrophils % (Manual) 55, Band Neutrophils % 8 H, Lymphocytes % (Manual) 23, Monocytes % (Manual) 5, Metamyelocytes % 1, Myelocytes % 7 H, Promyelocytes % 1 H, Diff Path Review May foll, Platelet Estimate ADEQUATE, RBC Morphology NORM C+C 12/03/22 05:40: Sodium 140, Potassium 3.4 L, Chloride 105, Carbon Dioxide 24.0, Anion Gap 11, BUN 7, Creatinine 0.46 L, Estim Creat Clear Calc 126.35, Est GFR (MDRD) Af Amer 184, Est GFR (MDRD) Non-Af 152, BUN/Creatinine Ratio 15.2, Glucose 87, Calcium 8.4 L, Phosphorus 2.6, Magnesium 1.7, Total Bilirubin 1.40 H, Direct Bilirubin 0.69 H, AST 35, ALT 34, Alkaline Phosphatase 89, Total Protein 5.6 L, Albumin 1.7 L, Globulin 3.9 Micro: Microbiology 11/28/22 Unknown Aspirate - Abdominal Gram Stain - Final 11/28/22 Unknown Aspirate - Abdominal Wound Culture - Final Klebsiella oxytoca Abiotrophia defectiva Escherichia coli 11/28/22 Unknown Aspirate - Abdominal Anaerobic Culture - Preliminary Rhythm Strip Rhythm Strip: Sinus Rhythm Rate: 80 Ectopy: None Physical Exam Resp normal respiratory effort Cardio regular rate GI GI Narrative: Abdomen: Soft, nondistended, tender near incision's dressed clean dry and intact?closed with cheryl, no peritoneal signs, colostomy pink, +flatus and stool in bag, bilateral JPs are serosanguineous Assessment & Plan Assessment/Plan (1) History of open sigmoidectomy: (2) Status post Kira procedure: (3) Colon necrosis: PLAN: Plan continue clears We will give patient some Valium 5 mg p.o. every 8 hours as needed for muscle spasms, continue pain control. Increase leukocytosis with bandemia we will check CT abdomen pelvis continue meropenem. Continue JPs/wound care?will plan to remove when WBC wnl Continue out of bed to chair/ambulation/IS Lovenox for DVT prophylaxis. Barbie Thompson M.D. Pager: [phone] [facility] [address] [place] [address], [facility], [address] [place] [address] Office: [phone]
[2022-12-03 08:41] VITALS: BP 106/65; PULSE 60; RESP 16; TEMP 36.7; O2SAT 99
--- NOTE | 2022-12-03 08:53 | WOUNDNOTE ---
Pt up into bathroom. this nurse assisted patient in emptying approx 50 cc's liquid brown stool from ostomy appliance. plan to change appliance with patient and again later today. WBC elevated today. Dr Thompson in an ordered CT scan of abdomen. Will continue with teaching. pt denies further needs at this time.
[2022-12-03 09:27] VITALS: O2SAT 99
[2022-12-03] MEDS: proCHLORPERazine 10 MG/2 ML Vial IV (09:32)
[2022-12-03] MEDS: Ondansetron 4 MG/2 ML Vial IV (10:06)
[2022-12-03 10:35] LABS: Pathologist Review Reviewed
--- NOTE | 2022-12-03 10:54 | WOUNDNOTE ---
Pt taken down for CT scan at this time. plan for ostomy change and teaching with patient and spouse this afternoon once patient is feeling better. pt slightly nauseated from drinking CT contrast.
[2022-12-03 12:34] LABS: Pathologist Review Reviewed
[2022-12-03] MEDS: 0.9% Saline Lock 10 ML Syringe IV ×2 (13:38→19:58)
[2022-12-03] MEDS: Enoxaparin 40 MG/0.4 ML Syringe SC (13:39)
[2022-12-03] MEDS: FLUoxetine 20 MG Capsule PO (13:40)
[2022-12-03 13:55] VITALS: RESP 18; O2SAT 95
[2022-12-03 13:58] VITALS: BP 131/84; PULSE 74; RESP 18; TEMP 36.7; O2SAT 95
--- NOTE | 2022-12-03 13:58 | CASEMGMT ---
Faxed [facility] the ostomy supply list. Updated Radha that pt will have green sheet on chart should she dc over the weekend.
--- NOTE | 2022-12-03 15:06 | WOUNDNOTE ---
Pt had been out ambulating in the halls with . Tolerated well. patient into the bathroom. this nurse assisted patient in emptying the appliance. demonstrated again to patient and how to clean the end of the pouch. patient back into bed. removed the appliance. stoma remains beefy red. size slightly decreased today. still oval in shape. cleansed the skin with warm water. pat dry. applied a new 2 piece flat [place] appliance with a small amount of stoma paste. pt tolerated well. plans to do the ostomy changes at home at first. encouraged patient to also be observant and willing to change the appliance as well. patient has been very willing so far to be a part of the care. both patient and very appreciative of the care they have received. no further needs voiced at this time.
[2022-12-03] MEDS: Potassium Chloride Oral Tablet 20 MEQ 40 MEQ PO (18:18)
[2022-12-03 19:55] VITALS: BP 136/82; PULSE 68; RESP 18; TEMP 37.1; O2SAT 94
[2022-12-03] MEDS: MELATONIN 3 MG TABLET PO (21:41)
[2022-12-03] MEDS: diazePAM 5 MG Tablet PO (21:42)
[2022-12-04 04:26] VITALS: BMI 29.1
[2022-12-04] MEDS: Ketorolac 15 MG/ML Vial IV ×3 (05:56→18:09)
[2022-12-04] MEDS: 0.9% Saline Lock 10 ML Syringe IV ×2 (05:56→11:45)
[2022-12-04 06:07] VITALS: BP 139/78; PULSE 76; RESP 16; TEMP 36.7; O2SAT 97
--- NOTE | 2022-12-04 07:04 | PCM.PN.SRG ---
Subjective Subjective Patient seen and examined during AM rounds. She is found resting in bed. She states that her pain is manageable and confirms that she has been continuing to get up and walk 1 lap in the hallways at regular intervals. She confirms that she is tolerating her regular diet without issue. She expresses concern over her latest white blood cell count. Objective Data Objective Data Vital Signs: Vital Signs Temp Pulse Resp BP Pulse Ox O2 Del Method O2 Flow Rate 98.1 F 76 16 139/78 H 97 Room Air 94 12/04/22 06:07 12/04/22 06:07 12/04/22 06:07 12/04/22 06:07 12/04/22 06:07 12/04/22 06:07 12/01/22 08:46 Oxygen Flow Rate (L/min) 94 Oxygen Delivery Method Room Air Weight: 169 lb 15.622 oz Body Mass Index (BMI) 29.1 Intake & Output: Intake and Output for Last 24 Hours 12/02/22 12/03/22 12/04/22 23:59 23:59 23:59 Intake Total 2060.6633 / 2360.6633 1147 / 1147 Output Total 1055 / 1055 300 / 300 20 / 20 Balance 1005.6633 / 1305.6633 847 / 847 -20 / -20 Lab / Micro Data Result Diagrams: 12/04/22 06:15 12/04/22 06:15 Labs: Laboratory Results - last 24 hr 12/02/22 06:25: Diff Path Review Reviewed 12/03/22 05:40: Diff Path Review Reviewed Micro: Microbiology 11/28/22 Unknown Aspirate - Abdominal Gram Stain - Final 11/28/22 Unknown Aspirate - Abdominal Wound Culture - Final Klebsiella oxytoca Abiotrophia defectiva Escherichia coli 11/28/22 Unknown Aspirate - Abdominal Anaerobic Culture - Preliminary Radiography Diagnostic Testing: Radiology Impression Abdomen/Pelvis CT 12/03/22 08:11 IMPRESSION: Status post sigmoidectomy with the colostomy in the anterior left lower quadrant. Drainage catheters are seen bilaterally with the tips in the region of the pelvis. Minimal free fluid is seen surrounding the tip of the left drainage catheter. No evidence of a abscess collection. Small bilateral pleural effusions with bibasilar atelectasis. Fatty infiltration of the liver. Solitary gallstone with sludge in the gallbladder lumen. Electronically Signed: Ilya Alexander MD at 12:26 EST , Rhythm Strip Rhythm Strip: Sinus Rhythm Rate: 80 Ectopy: None Physical Exam Const oriented x3 and no apparent distress Resp normal respiratory effort GI GI Narrative: Mild abdominal distention, left abdominal colostomy with significant output. Tenderness with palpation primarily about laparotomy incision. Operative dressings are taken down and there is some drainage to the dressing that is largely of serous character. This dressing is fully removed and the interstices between the skin cheryl are with with nonadherent Telfa gauze strips. Abdominal pad is replaced for increased absorbency. Assessment & Plan Assessment/Plan (1) History of open sigmoidectomy: (2) Status post Kira procedure: (3) Colon necrosis: PLAN: Plan Transitional diet, Ensure supplements?high-protein formally ordered Continue Valium 5 mg p.o. every 8 hours as needed for muscle spasms, continue pain control. Neutra-Phos ordered to optimize patient's potassium and phosphate levels Slightly decreased leukocytosis with slightly decreased left shift. CT abdomen pelvis 12/03/2022 overall reassuring with some simple fluid collected just about patient's drains. Drains are unremarkable today. Patient's midline wound with some serous drainage which has been wicked to improve efficiency of drainage. Continue JPs/wound care?will plan to remove when WBC further downtrending Continue out of bed to chair/ambulation/IS Lovenox for DVT prophylaxis. Charges/Coding Visit Charges Inpatient E&M: 95813 Subs Hosp L2
[2022-12-04 07:05] LABS: Hematocrit 41.2 % (37-47); Hemoglobin 13.2 g/dL (12.0-15.0); Mean Corpuscular Hgb 26.6 pg (27.0-32.0); Mean Corpuscular Volume 82.9 fL (81-99); Mean Platelet Vol. 9.3 fl (6.2-12.0); POSITIVE COUNT YES; POSITIVE MORPHOLOGY YES; Platelet Count 515 K/mm3 (150-450); RBC Distribution Width CV 15.3 % (11.6-14.6); RBC Distribution Width SD 45.6 fl (35.1-43.9); Red Blood Count 4.97 M/mm3 (4.2-5.4); White Blood Count 14.7 K/mm3 (4.4-11.0)
[2022-12-04 07:15] LABS: Differential Indicated MANUAL DIFF
[2022-12-04 07:40] LABS: BUN 6 mg/dL (7-18); Creatinine, Serum 0.64 mg/dL (0.55-1.02); Estimated Creatinine Clearance 90.81 ml/min; Glucose 91 mg/dL (74-106)
[2022-12-04 07:41] LABS: Anion Gap 9 (5-15); BUN/Creat Ratio 9.4 RATIO (10-20); Calcium,Total 9.1 mg/dL (8.5-10.1); Chloride 101 mmol/L (98-107); EST Glomerular Filtration Rate 104 mL/min (>60); Est Glom Filt Rate - Afr Amer 126 mL/min (>60); Magnesium 1.9 mg/dL (1.6-2.6); Potassium 3.7 mmol/L (3.5-5.1); Sodium Level 138 mmol/L (136-145)
[2022-12-04 08:00] LABS: Lymphocyte 20 % (19-41); Metamyelocyte 9 % (0-1); Monocyte 7 % (0-10); Myelocyte 3 % (0-0); Neutrophil-Segmented 61 % (47-70); Total Cells Counted 100 (MANUAL DIFF)
[2022-12-04 08:01] LABS: Platelet Estimate SLT INC (ADEQ); Polychromasia 1+
[2022-12-04 08:02] LABS: Absolute Lymphocyte Count 2.94 X10^3/uL (0.83-4.51)
[2022-12-04 08:40] LABS: Phosphorus 2.6 mg/dL (2.5-4.9)
[2022-12-04 10:20] VITALS: BP 142/91; PULSE 74; RESP 18; TEMP 36.4; O2SAT 95
[2022-12-04] MEDS: FLUoxetine 20 MG Capsule PO (10:28)
[2022-12-04] MEDS: Enoxaparin 40 MG/0.4 ML Syringe SC (10:29)
[2022-12-04] MEDS: FLUTICASONE/VILANTEROL 1 EACH BLST.W.DEV INHALATION (10:30)
[2022-12-04] MEDS: Na Biphos/Potassium Phosphate PACKET 1 PACKET PO (11:45)
[2022-12-04 13:38] VITALS: BP 119/64; PULSE 86; RESP 18; TEMP 36.9; O2SAT 95
[2022-12-04 18:15] VITALS: BP 142/81; PULSE 77; RESP 18; TEMP 36.9; O2SAT 96
[2022-12-04] MEDS: MELATONIN 3 MG TABLET PO (20:59)
[2022-12-04] MEDS: Clotrimazole/Betamethasone 1 Tube 1 APPLIC TOPICAL (20:59)
[2022-12-04] MEDS: diazePAM 5 MG Tablet PO (20:59)
[2022-12-04] MEDS: Acetaminophen 325 MG Tablet 650 MG PO (21:01)
[2022-12-04 21:16] VITALS: BP 149/77; PULSE 83; RESP 16; TEMP 36.6; O2SAT 96
[2022-12-05] MEDS: Acetaminophen 325 MG Tablet 650 MG PO (05:27)
[2022-12-05 05:36] VITALS: BP 137/86; PULSE 76; RESP 16; TEMP 36.5; O2SAT 97
[2022-12-05 05:57] LABS: Hematocrit 36.9 % (37-47); Hemoglobin 12.1 g/dL (12.0-15.0); Mean Corp Hgb Conc 32.8 g/dL (32-36); Mean Corpuscular Hgb 27.2 pg (27.0-32.0); Mean Corpuscular Volume 82.9 fL (81-99); POSITIVE COUNT YES; POSITIVE MORPHOLOGY YES; Platelet Count 430 K/mm3 (150-450); RBC Distribution Width CV 15.6 % (11.6-14.6); RBC Distribution Width SD 45.7 fl (35.1-43.9); Red Blood Count 4.45 M/mm3 (4.2-5.4); White Blood Count 11.4 K/mm3 (4.4-11.0)
[2022-12-05 06:01] LABS: Differential Indicated MANUAL DIFF
[2022-12-05 06:26] LABS: Total Cells Counted 100 (MANUAL DIFF)
[2022-12-05 06:27] LABS: Eosinophil 3 % (0-5); Lymphocyte 21 % (19-41); Metamyelocyte 2 % (0-1); Monocyte 4 % (0-10); Myelocyte 4 % (0-0); Neutrophil-Band 4 % (0-5); Neutrophil-Segmented 61 % (47-70); Platelet Estimate ADEQUATE (ADEQ); Promyelocyte 1 % (0-0)
[2022-12-05 06:29] LABS: Absolute Lymphocyte Count 2.39 X10^3/uL (0.83-4.51); Absolute Neutrophil Count 7.4 X10^3/uL (2.0-7.7); Lymphocyte # 2.39 X10^3/ul (0.83-4.51); Neutrophil # 7.39 X10^3/uL (2.7-7.7); Polychromasia RARE; Red Cell Morphology N CYTIC NORMAL (NORM C&C)
[2022-12-05 06:33] LABS: Anion Gap 7 (5-15); BUN 10 mg/dL (7-18); BUN/Creat Ratio 18.1 RATIO (10-20); Calcium,Total 8.8 mg/dL (8.5-10.1); Chloride 105 mmol/L (98-107); Creatinine, Serum 0.55 mg/dL (0.55-1.02); EST Glomerular Filtration Rate 123 mL/min (>60); Est Glom Filt Rate - Afr Amer 149 mL/min (>60); Estimated Creatinine Clearance 105.67 ml/min; Glucose 104 mg/dL (74-106); Phosphorus 3.5 mg/dL (2.5-4.9); Potassium 3.4 mmol/L (3.5-5.1); Sodium Level 139 mmol/L (136-145)
--- NOTE | 2022-12-05 08:26 | PN.SURG_ITS ---
Subjective Subjective Patient was seen and examined during AM rounds. She reports that she is feeling much better today. She reports a restful night sleep. She also states that she is happy to see that her white blood cell count had down trended (she states she looked up her results before even arrived to the room). She denies any s ignificant abdominal pain and reports that nursing changed her outer dressing yesterday. Objective Data Objective Data Constitutional: No acute distress, cooperative Vital Signs: Vital Signs Temp Pulse Resp BP Pulse Ox O2 Del Method O2 Flow Rate 97.7 F L 76 16 137/86 H 97 Room Air 94 12/05/22 05:36 12/05/22 05:36 12/05/22 05:36 12/05/22 05:36 12/05/22 05:36 12/05/22 05:36 12/01/22 08:46 Oxygen Flow Rate (L/min) 94 Oxygen Delivery Method Room Air Weight: 175 lb Body Mass Index (BMI) 30.0 Intake & Output: Intake and Output for Last 24 Hours 12/03/22 12/04/22 12/05/22 23:59 23:59 23:59 Intake Total 1147 / 1147 1630 / 1630 140 / 140 Output Total 300 / 300 238 / 238 / Balance 847 / 847 1392 / 1392 128 / 128 Lab / Micro Data Result Diagrams: 12/05/22 05:38 12/05/22 05:38 Labs: Laboratory Results - last 24 hr 12/04/22 06:15: Phosphorus 2.6 12/05/22 05:38: WBC 11.4 H, RBC 4.45, Hgb 12.1, Hct 36.9 L, MCV 82.9, MCH 27.2, MCHC 32.8, RDW Std Deviation 45.7 H, RDW Coeff of Shelton 15.6 H, Plt Count 430, MPV 9.0, Neut % (Auto) Not Reportable, Absolute Neuts (auto) 7.4, Absolute Lymphs (auto) 2.39, Total Counted 100, Neutrophils % (Manual) 61, Band Neutrophils % 4, Lymphocytes % (Manual) 21, Monocytes % (Manual) 4, Eosinophils % (Manual) 3, Metamyelocytes % 2 H, Myelocytes % 4 H, Promyelocytes % 1 H, Diff Path Review May foll, Platelet Estimate ADEQUATE, RBC Morphology N CYTIC, Polychromasia RARE 12/05/22 05:38: Sodium 139, Potassium 3.4 L, Chloride 105, Carbon Dioxide 27.0, Anion Gap 7, BUN 10, Creatinine 0.55, Estim Creat Clear Calc 105.67, Est GFR (MDRD) Af Amer 149, Est GFR (MDRD) Non-Af 123, BUN/Creatinine Ratio 18.1, Glucose 104, Calcium 8.8, Phosphorus 3.5, Magnesium 2.0 Micro: Microbiology 11/28/22 Unknown Aspirate - Abdominal Gram Stain - Final 11/28/22 Unknown Aspirate - Abdominal Wound Culture - Final Klebsiella oxytoca Abiotrophia defectiva Escherichia coli 11/28/22 Unknown Aspirate - Abdominal Anaerobic Culture - Preliminary Rhythm Strip Rhythm Strip: Sinus Rhythm Rate: 80 Ectopy: None Physical Exam Const oriented x3 and no apparent distress Resp normal respiratory effort GI GI Narrative: No significant abdominal distention, left abdominal colostomy with decreased output. Mild tenderness with palpation primarily about laparotomy incision. Wound dressings are taken down and there is some scant serous drainage to the dressing. The wound mayela are backed out of the wound slightly. Bilateral ALFREDO drains contain serosanguineous output. The right-sided ALFREDO drain was removed at bedside today. Abdominal pad is replaced for increased absorbency. Assessment & Plan Assessment/Plan (1) History of open sigmoidectomy: (2) Status post Kira procedure: (3) Colon necrosis: PLAN: Plan Transitional diet, Ensure supplements?high-protein formally ordered Continue Valium 5 mg p.o. every 8 hours as needed for muscle spasms, continue pain control. Potassium chloride tablet ordered to replete hypokalemia Further decreased leukocytosis. CT abdomen pelvis 12/03/2022 overall reassuring with some simple fluid collected just about patient's drains. Drains, again, unremarkable today so right abdominal drain was removed at bedside today. Patient's midline wound remains wicked and exhibits some serous drainage but this is decreased in volume. Empiric coverage with meropenem stopped today given the above clinical progress. Continue ALFREDO on left/wound care?consider discontinuation tomorrow Continue out of bed to chair/ambulation/IS Lovenox for DVT prophylaxis. Dispo: Hospital discharge anticipated 12/06/2022 Charges/Coding Visit Charges Inpatient E&M: 22275 Subs Hosp L2
[2022-12-05] MEDS: FLUoxetine 20 MG Capsule PO (10:56)
[2022-12-05] MEDS: Enoxaparin 40 MG/0.4 ML Syringe SC (10:56)
[2022-12-05] MEDS: FLUTICASONE/VILANTEROL 1 EACH BLST.W.DEV INHALATION (10:56)
[2022-12-05] MEDS: Potassium Chloride Oral Tablet 20 MEQ 40 MEQ PO (11:01)
[2022-12-05 11:29] VITALS: BP 117/81; PULSE 86; RESP 16; TEMP 36.6; O2SAT 96
[2022-12-05 11:35] VITALS: BP 117/81; PULSE 86; RESP 16; TEMP 36.6; O2SAT 96
[2022-12-05] MEDS: Ibuprofen 600 MG Tablet PO (15:31)
[2022-12-05 17:45] VITALS: BP 125/94; PULSE 86; RESP 16; TEMP 36.8; O2SAT 96
[2022-12-05 20:36] VITALS: BP 117/79; PULSE 88; RESP 18; TEMP 36.7; O2SAT 97
[2022-12-05] MEDS: diazePAM 5 MG Tablet PO (21:25)
[2022-12-05] MEDS: MELATONIN 3 MG TABLET PO (21:25)
--- NOTE | 2022-12-05 21:49 | NURSING ---
Pt requested that we disturb her as little as possible. Order by MD to let pt sleep, don't need to perform vital signs, etc. Will monitor pt as needed.
[2022-12-06 05:10] VITALS: BP 121/79; PULSE 70; RESP 18; TEMP 36.3; O2SAT 96
[2022-12-06 05:16] VITALS: BMI 29.9
[2022-12-06] MEDS: Enoxaparin 40 MG/0.4 ML Syringe SC (07:48)
[2022-12-06] MEDS: 0.9% Saline Lock 10 ML Syringe IV (07:48)
[2022-12-06] MEDS: FLUoxetine 20 MG Capsule PO (07:48)
[2022-12-06] MEDS: FLUTICASONE/VILANTEROL 1 EACH BLST.W.DEV INHALATION (07:49)
[2022-12-06 08:00] VITALS: BP 126/82; PULSE 93; RESP 16; TEMP 36.4; O2SAT 98
[2022-12-06 08:31] LABS: Differential Indicated MANUAL DIFF; Hematocrit 43.8 % (37-47); Hemoglobin 14.1 g/dL (12.0-15.0); Mean Corp Hgb Conc 32.2 g/dL (32-36); Mean Corpuscular Hgb 26.9 pg (27.0-32.0); Mean Corpuscular Volume 83.4 fL (81-99); POSITIVE COUNT YES; POSITIVE MORPHOLOGY YES; Platelet Count 569 K/mm3 (150-450); RBC Distribution Width CV 16.1 % (11.6-14.6); Red Blood Count 5.25 M/mm3 (4.2-5.4); White Blood Count 12.9 K/mm3 (4.4-11.0)
--- NOTE | 2022-12-06 08:35 | PCM.PN.SRG ---
Subjective Subjective Patient feels well, was able to sleep well last night, still having bowel function and tolerating diet. Objective Data Objective Data Vital Signs: Vital Signs Temp Pulse Resp BP Pulse Ox O2 Del Method O2 Flow Rate 97.3 F L 70 18 121/79 H 96 Room Air 94 12/06/22 05:10 12/06/22 05:10 12/06/22 05:10 12/06/22 05:10 12/06/22 05:10 12/06/22 05:10 12/01/22 08:46 Oxygen Flow Rate (L/min) 94 Oxygen Delivery Method Room Air Weight: 174 lb 5 oz Body Mass Index (BMI) 29.9 Intake & Output: Intake and Output for Last 24 Hours 12/04/22 12/05/22 12/06/22 23:59 23:59 23:59 Intake Total 1630 / 1630 250 / 250 Output Total 238 / 238 Balance 1392 / 1392 218 / 218 -10 / 10 Lab / Micro Data Result Diagrams: 12/06/22 08:22 12/06/22 08:22 Labs: Laboratory Results - last 24 hr 12/06/22 08:22: WBC 12.9 H, RBC 5.25, Hgb 14.1, Hct 43.8, MCV 83.4, MCH 26.9 L, MCHC 32.2, RDW Std Deviation 47.0 H, RDW Coeff of Shelton 16.1 H, Plt Count 569 H, MPV 9.0, Neut % (Auto) Not Reportable Micro: Microbiology 11/28/22 Unknown Aspirate - Abdominal Gram Stain - Final 11/28/22 Unknown Aspirate - Abdominal Wound Culture - Final Klebsiella oxytoca Abiotrophia defectiva Escherichia coli 11/28/22 Unknown Aspirate - Abdominal Anaerobic Culture - Final Bacteroides thetaiotaomicron Bacteroides vulgatus Clostridium species Rhythm Strip Rhythm Strip: Sinus Rhythm Rate: 80 Ectopy: None Physical Exam Const oriented x3 and no apparent distress Resp normal respiratory effort Cardio regular rate GI GI Narrative: Abdomen: Soft, mild distention, midline incision with cheryl loose and ABD pad no signs of infection, colostomy pink with stool in bag, left lower quadrant ALFREDO serous removed at bedside, right lower quadrant ALFREDO site dressed Assessment & Plan Assessment/Plan (1) History of open sigmoidectomy: (2) Status post Kira procedure: (3) Colon necrosis: PLAN: Plan Transitional diet, Ensure supplements?high-protein formally ordered Continue Valium 5 mg p.o. every 8 hours as needed for muscle spasms, continue pain control. Labs pending White blood cell count 12.9 meropenem stopped yesterday. incision irrigation with saline- no signs of infection. Minimal output from the left lower quadrant ALFREDO we will plan to remove. Continue out of bed to chair/ambulation/IS Lovenox for DVT prophylaxis. Barbie Thompson M.D. Pager: [phone] [facility] [address] [place] [address], [facility], [address] [place] [address] Office: [phone]
--- NOTE | 2022-12-06 08:50 | DCINST_ITS ---
Discharge Instructions Diet Discharge Diet: No restrictions Activity Discharge Activity: May Shower Dressing / Incision Call your doctor if your incision/area has: Continuous Slow Oozing, Sudden Increased Bleeding, Increased Pain/ Swelling, Increased Redness and Foul Smelling Discharge Call your doctor if you observe: Fever of 101 or Higher Change Dressing in: Twice a da Cleanse incision/area with: - (ok for water to run over) Follow Up Care Please Follow Up With: Barbie Thompson MD When: call office for f/u appt . or tuesday Test Results: Test results from this visit will be discussed in further detail at your follow- up appointment, if applicable. Discharge Plan Admission Admit Date/Time: 11/24/22 15:04 Attending Provider: Barbie Thompson Primary Care Provider: Shawanda Shields Consulting Providers: Scarlet Velazquez Discharge Orders/Prescriptions Prescriptions: New diazepam 5 mg tablet 5 mg PO QHS PRN (Reason: muscle spasm) Qty: 3 0RF Continued sumatriptan succinate [Imitrex] 25 mg tablet See Rx Instructions PO .COMPLEX Qty: 20 1RF Rx Instructions: take 1 tab at onset of headache; if no relief may repeat 1 tab after at least 2 hrs; max = 4 tabs/24 hr PO promethazine 12.5 mg tablet 12.5 mg PO TID PRN (Reason: nausea and vomiting) Qty: 30 0RF clotrimazole-betamethasone 1-0.05 % cream 1 applic topical BID 14 Days Qty: 45 2RF prednisone 10 mg tablet See Rx Instructions PO QDAY Qty: 30 0RF Rx Instructions: 4 tabs for 3 days, then 3 tabs for 3 days, then 2 tabs for 3 days, then 1 tab for 3 days PO QDAY; administer with food or milk fluoxetine 20 mg capsule See Rx Instructions .ROUTE .COMPLEX Qty: 90 3RF Dose Instruction: take 1 capsule by mouth once daily Rx Instructions: take 1 capsule by mouth once daily Breo Ellipta 100-25 mcg/dose blister with device 1 inh INHALATION Q24H Qty: 60 5RF Rx Instructions: after inhalation, rinse mouth with water and spit out; do not swallow omeprazole 20 mg capsule,delayed release(DR/EC) 20 mg PO DAILY Qty: 90 0RF Referrals / Follow Up: Shawanda Shields MD [Primary Care Provider] - Disposition Disposition (needs filled in before D/C Order can be placed): Home Health Service
[2022-12-06 08:53] LABS: Anion Gap 8 (5-15); BUN 12 mg/dL (7-18); BUN/Creat Ratio 17.9 RATIO (10-20); Calcium,Total 9.4 mg/dL (8.5-10.1); Chloride 105 mmol/L (98-107); Creatinine, Serum 0.67 mg/dL (0.55-1.02); EST Glomerular Filtration Rate 99 mL/min (>60); Est Glom Filt Rate - Afr Amer 120 mL/min (>60); Estimated Creatinine Clearance 86.74 ml/min; Glucose 112 mg/dL (74-106); Potassium 4.1 mmol/L (3.5-5.1); Sodium Level 137 mmol/L (136-145)
[2022-12-06 09:01] LABS: Lymphocyte 24 % (19-41); Monocyte 2 % (0-10); Neutrophil-Band 2 % (0-5); Neutrophil-Segmented 72 % (47-70); Total Cells Counted 100 (MANUAL DIFF)
[2022-12-06 09:02] LABS: Red Cell Morphology NORM C+C NORMAL (NORM C&C)
[2022-12-06 09:03] LABS: Platelet Estimate MOD INC (ADEQ); Polychromasia 1+
[2022-12-06 09:04] LABS: Absolute Neutrophil Count 9.5 X10^3/uL (2.0-7.7)
--- NOTE | 2022-12-06 09:40 | PCM.DC.SUM ---
Providers Date of Admission: 11/24/22 Primary Care Physician: Dr. Shawanda Shields MD Consultations 11/28/22 15:18 Consult: Onc/Wound/business administration teacher Routine Comment: Reason for Consult:: ostomy Reason For Visit: ACUTE DIVERTICULITIS WITH MICROPERFORATION Diagnosis Discharge Diagnosis (1) History of open sigmoidectomy: Status: Acute Code(s): Z98.890 - Other specified postprocedural states; Z90.49 - Acquired absence of other specified parts of digestive tract (2) Status post Tara procedure: Status: Acute Code(s): Z93.3 - Colostomy status (3) Colon necrosis: Status: Resolved Code(s): K55.049 - Acute infarction of large intestine, extent unspecified Plan Transitional diet, Ensure supplements?high-protein formally ordered Continue Valium 5 mg p.o. every 8 hours as needed for muscle spasms, continue pain control. Labs pending White blood cell count 12.9 meropenem stopped yesterday. incision irrigation with saline- no signs of infection. Minimal output from the left lower quadrant ALFREDO we will plan to remove. Continue out of bed to chair/ambulation/IS Lovenox for DVT prophylaxis. Barbie Thompson M.D. Pager: [phone] [facility] [address] [place] [address], [facility], [address] [place] [address] Office: [phone] Medications at Discharge Home Medications fluoxetine 20 mg capsule See Rx Instructions .Route .COMPLEX #90 caps 06/08/22 fluticasone furoate 100 mcg-vilanterol 25 mcg/dose inhalation powder (Breo Ellipta) 1 inh inhalation Q24H #60 ea 06/10/22 promethazine 12.5 mg tablet 12.5 mg PO TID PRN nausea and vomiting #30 tabs 09/23/22 sumatriptan succinate 25 mg tablet (Imitrex) See Rx Instructions PO .COMPLEX #20 tabs 09/23/22 clotrimazole-betamethasone 1 %-0.05 % topical cream 1 applic topical BID 2 weeks #45 grams 11/10/22 prednisone 10 mg tablet See Rx Instructions PO QDAY #30 tabs 11/10/22 omeprazole 20 mg capsule,delayed release 20 mg PO DAILY #90 caps 11/24/22 diazepam 5 mg tablet 5 mg PO QHS PRN muscle spasm #3 tabs 12/06/22 Hospital Course Operations colectomy (tara procedure 11/28/22) Procedures None Summary of Care Provided Minutes Spent on Discharge: 15 Hospital Course: 52-year-old female initially presented to the ER with what appeared to be perforated diverticulitis of the sigmoid colon. Patient was initially doing better and then had a CT abdomen pelvis showed more air and patient did then began to have increasing pain. Patient was taken to surgery laparoscopic converted to open sigmoidectomy with Cortez's procedure due to feculent drainage in the abdomen. Postoperatively patient did take a few days to regain bowel function via her colostomy. Patient also had leukocytosis which was treated with broad-spectrum antibiotics and patient to JPs which remained serosanguineous were able to be removed prior to discharge. Patient was able to tolerate a regular diet and having bowel function per colostomy. Patient's broad-spectrum antibiotics were stopped as patient clinically was doing well. Patient did have white blood count of 11.9 on discharge however patient clinically is doing well no signs of infection from midline incision and vital signs stable. Physical Exam Const alert and oriented x3 General Appearance: cooperative and comfortable Resp normal respiratory effort Cardio regular rate GI GI Narrative: Abdomen: Soft, mild distention, mild tender near incision, midline incision closed loosely with cheryl. No signs of infection. Patient's left lower quadrant colostomy pink with stool in bag. Patient's previous ALFREDO sites dressed. Weight / BMI Weight Weight: 174 lb 5 oz Body Mass Index (BMI) 29.9 ABG / Lab / Microbiology Data Result Diagrams: 12/06/22 08:22 12/06/22 08:22 Laboratory: Laboratory Results - last 24 hr 12/06/22 08:22: Sodium 137, Potassium 4.1, Chloride 105, Carbon Dioxide 24.0, Anion Gap 8, BUN 12, Creatinine 0.67, Estim Creat Clear Calc 86.74, Est GFR (MDRD) Af Amer 120, Est GFR (MDRD) Non-Af 99, BUN/Creatinine Ratio 17.9, Glucose 112 H, Calcium 9.4 12/06/22 08:22: WBC 12.9 H, RBC 5.25, Hgb 14.1, Hct 43.8, MCV 83.4, MCH 26.9 L, MCHC 32.2, RDW Std Deviation 47.0 H, RDW Coeff of Shelton 16.1 H, Plt Count 569 H, MPV 9.0, Neut % (Auto) Not Reportable, Absolute Neuts (auto) 9.5 H, Absolute Lymphs (auto) 3.10, Total Counted 100, Neutrophils % (Manual) 72 H, Band Neutrophils % 2, Lymphocytes % (Manual) 24, Monocytes % (Manual) 2, Diff Path Review May foll, Platelet Estimate MOD INC, RBC Morphology NORM C+C, Polychromasia 1+ Microbiology: Microbiology 11/28/22 Unknown Aspirate - Abdominal Gram Stain - Final 11/28/22 Unknown Aspirate - Abdominal Wound Culture - Final Klebsiella oxytoca Abiotrophia defectiva Escherichia coli 11/28/22 Unknown Aspirate - Abdominal Anaerobic Culture - Final Bacteroides thetaiotaomicron Bacteroides vulgatus Clostridium species D/C Instructions Discharge Diet: No restrictions Call your doctor if your incision/area has: Continuous Slow Oozing, Sudden Increased Bleeding, Increased Pain/ Swelling, Increased Redness and Foul Smelling Discharge Call your doctor if you observe: Fever of 101 or Higher Cleanse incision/area with: - (ok for water to run over) Please Follow Up With: Barbie Thompson MD When: call office for f/u appt . or tuesday Meaningful Use Info Meaningful Use Diagnoses (Choose all that apply): None applicable Discharge Plan Admission Admit Date/Time: 11/24/22 15:04 Attending Provider: Barbie Thompson Primary Care Provider: Shawanda Shields Consulting Providers: Scarlet Velazquez Discharge Orders/Prescriptions Prescriptions: New diazepam 5 mg tablet 5 mg PO QHS PRN (Reason: muscle spasm) Qty: 3 0RF Continued sumatriptan succinate [Imitrex] 25 mg tablet See Rx Instructions PO .COMPLEX Qty: 20 1RF Rx Instructions: take 1 tab at onset of headache; if no relief may repeat 1 tab after at least 2 hrs; max = 4 tabs/24 hr PO promethazine 12.5 mg tablet 12.5 mg PO TID PRN (Reason: nausea and vomiting) Qty: 30 0RF clotrimazole-betamethasone 1-0.05 % cream 1 applic topical BID 14 Days Qty: 45 2RF prednisone 10 mg tablet See Rx Instructions PO QDAY Qty: 30 0RF Rx Instructions: 4 tabs for 3 days, then 3 tabs for 3 days, then 2 tabs for 3 days, then 1 tab for 3 days PO QDAY; administer with food or milk fluoxetine 20 mg capsule See Rx Instructions .ROUTE .COMPLEX Qty: 90 3RF Dose Instruction: take 1 capsule by mouth once daily Rx Instructions: take 1 capsule by mouth once daily Breo Ellipta 100-25 mcg/dose blister with device 1 inh INHALATION Q24H Qty: 60 5RF Rx Instructions: after inhalation, rinse mouth with water and spit out; do not swallow omeprazole 20 mg capsule,delayed release(DR/EC) 20 mg PO DAILY Qty: 90 0RF Referrals / Follow Up: Shawanda Shields MD [Primary Care Provider] - Disposition Disposition (needs filled in before D/C Order can be placed): Home Health Service
--- NOTE | 2022-12-06 09:58 | WOUNDNOTE ---
Dr Thompson had been in and irrigated the abdominal incision with NS. no teressa incisional redness noted. cheryl remain intact. new dry dressing applied. reviewed signs and symptoms of infection with patient and . the colostomy appliance was just starting to leak at the medial edge of the flange. the was able to demonstrate removal of the appliance, cleaning the skin, cutting the opening in the flange, placing a paste ring and placing the flange around the stoma. was able to snap the pouch to the flange. patient has been doing very well emptying the appliance and cleaning the end of the pouch. both are very appreciative of the care received at [facility]. both aware to call if issues arise at home.
--- NOTE | 2022-12-06 11:00 | CASEMGMT ---
RN received confirmation from Radha at [facility] that they did receive 6SN visits to see patient and they will see pt tomorrow. RN CM in to pt room, pt sitting up in chair, pt aware that C will start tomorrow. She states she has some supplies given to her and she is aware that [facility] will order her supplies. Pt denies any questions.
--- NOTE | 2022-12-06 11:27 | PHA.DC.MC ---
Pharmacy Service has performed discharge medication reconciliation and counseling for this patient. 1. DIAZEPAM 5MG PO QHS PRN MUSCLE SPASMS The patient's discharge medication list was reviewed for discrepancies and discrepancies were resolved. Home Medications fluoxetine 20 mg capsule See Rx Instructions .Route .COMPLEX #90 caps 06/08/22 fluticasone furoate 100 mcg-vilanterol 25 mcg/dose inhalation powder (Breo Ellipta) 1 inh inhalation Q24H #60 ea 06/10/22 promethazine 12.5 mg tablet 12.5 mg PO TID PRN nausea and vomiting #30 tabs 09/23/22 sumatriptan succinate 25 mg tablet (Imitrex) See Rx Instructions PO .COMPLEX #20 tabs 09/23/22 clotrimazole-betamethasone 1 %-0.05 % topical cream 1 applic topical BID 2 weeks #45 grams 11/10/22 prednisone 10 mg tablet See Rx Instructions PO QDAY #30 tabs 11/10/22 omeprazole 20 mg capsule,delayed release 20 mg PO DAILY #90 caps 11/24/22 diazepam 5 mg tablet 5 mg PO QHS PRN muscle spasm #3 tabs 12/06/22 The patient was counseled on the following discharge medications and changes in medications for homegoing were reviewed. The Reason for Use, instructions for use, and potential side effects were reviewed for all new medications. The patient's questions regarding all of their medications were answered. The patient was able to verbally demonstrate an understanding of their discharge medications. Patient counseled by student driving instructorHien.
[2022-12-06 14:09] LABS: Pathologist Review Reviewed
[2022-12-06 14:25] LABS: Pathologist Review Reviewed
[2022-12-06 14:31] LABS: Pathologist Review Reviewed
== END 2022-12-06 11:51 | disposition home health service (06) | DRG 329 ==
LOC: ED 14:31 → MS3 15:37
PROVIDERS: Internal Medicine; Surgery; Admitting Provider Surgery; Emergency Provider Emergency Medicine; PCP Internal Medicine; Visit Provider Surgery
PROC: 0DTN0ZZ Resection of Sigmoid Colon, Open Approach (ICD-10-PCS; CPT 44204; principal; 2022-11-28 11:00)
DX: K57.20 Diverticulitis of large intestine with perforation and abscess without bleeding (principal); K55.049 Acute infarction of large intestine, extent unspecified; K56.1 Intussusception; I95.9 Hypotension, unspecified; Z93.3 Colostomy status; K21.9 Gastro-esophageal reflux disease without esophagitis; K44.9 Diaphragmatic hernia without obstruction or gangrene; J45.909 Unspecified asthma, uncomplicated; E87.6 Hypokalemia; D72.825 Bandemia; E86.0 Dehydration; F41.9 Anxiety disorder, unspecified; R21 Rash and other nonspecific skin eruption; Z53.31 Laparoscopic surgical procedure converted to open procedure; Z87.891 Personal history of nicotine dependence; Z79.899 Other long term (current) drug therapy
CPT/HCPCS: 36415; 74176; 74177; 80048; 80053; 80076; 82803; 83605; 83690; 83735; 84100; 85025; 87070; 87075; 87077; 87176; 87186; 87205; 88304; 88307; 93005; 94640; 94668; 99252; 99284; J2185; J7030; J7040; J7050; J7120; Q9967; A4216; C1760; G0463; J0330; J2405

== ENCOUNTER → 2023-03-28 | Outpatient (CLI) | payer OTHER, SELFPAY ==
[2023-03-28 12:49] LABS: Absolute Lymphocyte Count 2.25 X10^3/uL (0.83-4.51); Absolute Neutrophil Count 4.9 X10^3/uL (2.0-7.7); Basophil# 0.06 X10^3/uL; Basophil% 0.8 % (0-1); Eosinophil# 0.16 X10^3/uL; Hematocrit 41.9 % (37-47); Hemoglobin 13.8 g/dL (12.0-15.0); Lymphocyte # 2.25 X10^3/ul (0.83-4.51); Lymphocyte % 28.4 % (19-41); Mean Corp Hgb Conc 32.9 g/dL (32-36); Mean Corpuscular Hgb 26.4 pg (27.0-32.0); Mean Corpuscular Volume 80.1 fL (81-99); Mean Platelet Vol. 9.8 fl (6.2-12.0); Monocyte# 0.52 X10^3/uL; Monocyte% 6.6 % (0-10); NRBC Flagged by Analyzer 0 % (0-5); Neutrophil % 61.8 % (47-70); Platelet Count 303 K/mm3 (150-450); RBC Distribution Width CV 13.8 % (11.6-14.6); RBC Distribution Width SD 39.8 fl (35.1-43.9); Red Blood Count 5.23 M/mm3 (4.2-5.4); White Blood Count 7.9 K/mm3 (4.4-11.0)
[2023-03-28 12:51] LABS: ALB/GLOB Ratio 0.8 RATIO (0.9-2.4); AST(SGOT) 36 U/L (15-37); Alanine Aminotransfer ALT/SGPT 64 U/L (13-56); Albumin, Serum 3.3 g/dL (3.2-5.0); Alkaline Phosphatase 86 U/L (45-117); Anion Gap 7 (5-15); BUN 14 mg/dL (7-18); BUN/Creat Ratio 16.4 RATIO (10-20); CRP 7.02 mg/L (0.0-3.0); Calcium,Total 9.3 mg/dL (8.5-10.1); Chloride 108 mmol/L (98-107); Cholesterol 192 mg/dL (200); Creatinine, Serum 0.86 mg/dL (0.55-1.02); EST Glomerular Filtration Rate 75 mL/min (>60); Est Glom Filt Rate - Afr Amer 90 mL/min (>60); Glucose 113 mg/dL (74-106); High Density Lipoprotein 44 mg/dL; Potassium 3.9 mmol/L (3.5-5.1); Protein, Total 7.3 g/dL (6.4-8.2); Sodium Level 138 mmol/L (136-145); Triglycerides 114 mg/dL; Very Low Density Lipoprotein 23 mg/dL (5-40)
[2023-03-28 19:20] LABS: Rheumatoid Factor < 10.0 IU/mL (<15)
[2023-03-29 12:08] LABS: ANTINUCLEAR ANTIBODIES DIRECT Negative (Negative)
[2023-03-29 13:07] LABS: CCP IgG Antibodies 3 units (0-19)
== END | disposition home or self-care (01) ==
LOC: BIMLAB 10:49
PROVIDERS: PCP Internal Medicine; Referring Provider Internal Medicine; Visit Provider Internal Medicine
DX: Z00.00 Encounter for general adult medical examination without abnormal findings (principal); M19.90 Unspecified osteoarthritis, unspecified site
CPT/HCPCS: 36415; 80053; 80061; 85025; 86038; 86140; 86200; 86225; 86235; 86431

== ENCOUNTER → 2023-03-31 | Outpatient (CLI) | payer OTHER, SELFPAY ==
--- NOTE | 2023-03-31 09:33 | BI_ITS ---
MAMMOGRAPHY - BILATERAL SCREENING REASON FOR EXAM: Female, 52 years old. Routine annual screening examination. PERTINENT HISTORY: Non-contributory. TECHNIQUE: Digital bilateral breast nicole (3D mammographic acquisition) in the CC and MLO projections. 2-D mediolateral oblique (MLO) and craniocaudad (CC) views of both breasts were obtained. CAD: Full Field Digital Mammography with Computer Added Detection was performed. COMPARISON: Mammogram from 05/13/2020. FINDINGS: Breast Composition: The breasts are heterogeneously dense, which may obscure small masses. There are no dominant masses or suspicious calcifications. No other significant abnormalities are identified. There has been no significant change since the prior study. BI/SCRN MAMM (CAD)W/NICOLE BILAT IMPRESSION: Negative screening mammogram with no significant interval change since 2019. Yearly followup mammogram recommended. (A) ASSESSMENT CATEGORY: BIRADS Category 1: Negative. A letter regarding these results will be sent to the patient by the facility within 30 days. Approximately 10% of breast cancers are not detected by mammography. A normal mammogram should not delay biopsy of a clinically suspicious abnormality. Electronically Signed: Poncho Galan DO at 16:56 EDT ,
== END | disposition home or self-care (01) ==
LOC: OPBI 09:33
PROVIDERS: PCP Internal Medicine; Referring Provider Internal Medicine; Visit Provider Internal Medicine
DX: Z12.31 Encounter for screening mammogram for malignant neoplasm of breast (principal)
CPT/HCPCS: 77063; 77067

== ENCOUNTER → 2023-04-01 | Outpatient (CLI) | payer OTHER, SELFPAY ==
[2023-04-01 15:53] LABS: Absolute Lymphocyte Count 2.46 X10^3/uL (0.83-4.51); Absolute Neutrophil Count 4.8 X10^3/uL (2.0-7.7); Basophil# 0.07 X10^3/uL; Basophil% 0.9 % (0-1); Eosinophil# 0.14 X10^3/uL; Eosinophils% 1.8 % (0-5); Hematocrit 41.8 % (37-47); Hemoglobin 13.3 g/dL (12.0-15.0); Lymphocyte # 2.46 X10^3/ul (0.83-4.51); Lymphocyte % 30.9 % (19-41); Mean Corp Hgb Conc 31.8 g/dL (32-36); Mean Corpuscular Hgb 25.6 pg (27.0-32.0); Mean Corpuscular Volume 80.4 fL (81-99); Mean Platelet Vol. 9.8 fl (6.2-12.0); Monocyte# 0.51 X10^3/uL; Monocyte% 6.4 % (0-10); NRBC Flagged by Analyzer 0 % (0-5); Neutrophil # 4.75 X10^3/uL (2.7-7.7); Neutrophil % 59.6 % (47-70); Platelet Count 312 K/mm3 (150-450); RBC Distribution Width CV 13.9 % (11.6-14.6); RBC Distribution Width SD 40.1 fl (35.1-43.9); RET-HE 28.4 pg (30-35); Reticulocyte Count 1.28 % (0.5-1.5)
[2023-04-01 15:56] LABS: Homocysteine 8.2 umol/L (3.2-10.7)
[2023-04-01 16:10] LABS: CRP 7.18 mg/L (0.0-3.0); Ferritin 23 ng/mL (8-252); Iron 33 ug/dL (50-170); Iron Binding Capacity,Total 363 ug/dL (250-450); LDH 159 U/L (84-246)
[2023-04-01 16:25] LABS: Prothrombin Time (Protime)PT. 12.9 SECONDS (11.7-14.9)
[2023-04-01 16:26] LABS: Erythrocyte Sedimentation Rate 15 mm/hr (0-30); Partial Thromboplast Time 29.8 Seconds (24.1-36.2)
[2023-04-04 14:08] LABS: Anti-Centromere B Ab <0.2 AI (0.0-0.9); Anti-Chromatin <0.2 AI (0.0-0.9); Anti-Jo <0.2 AI (0.0-0.9); Anti-Scleroderma-70 AB <0.2 AI (0.0-0.9); Anti-dsDNA Ab 1 IU/mL (0-9); RNP Ab <0.2 AI (0.0-0.9); SJOGREN'S Anti-SS-A test < 0.2 AI (0.0-0.9); SJOGREN'S Anti-SS-B test < 0.2 AI (0.0-0.9); Smith Ab <0.2 AI (0.0-0.9)
[2023-04-04 15:08] LABS: Endomysial Antibody IgA Negative (Negative); Immunoglobulin A 276 mg/dL (87-352); t-Transglutaminase IgA <2 U/mL (0-3)
[2023-04-09 11:40] LABS: Albumin 3.6 g/dL (2.9-4.4); Alpha-1-Globulins 0.2 g/dL (0.0-0.4); Alpha-2-Globulins 0.9 g/dL (0.4-1.0); Anti-Cardiolipin Ab, IgA, Qn < 9 APL U/mL (0-11); Anti-Cardiolipin Ab, IgG, Qn < 9 GPL U/mL (0-14); Anti-Cardiolipin Ab, IgM, Qn < 9 MPL U/mL (0-12); Anti-Thrombin 3 AG, Immunol 82 % (72-124); Antithrombin 3 Function 95 % (75-135); CCP IgG Antibodies 5 units (0-19); Cytoplasmic Ab (C-ANCA) <1:20 titer (Neg:<1:20); Dilute Prothrombin Time (dPT) 38.5 sec (0.0-47.6); Dilute Russell Viper Venom 39.3 sec (0.0-47.0); Factor VIII Activity 157 % (56-140); Haptoglobin 186 mg/dL (42-296); Immunoglobulin A 271 mg/dL (87-352); Immunoglobulin G 907 mg/dL (586-1602); Immunoglobulin M 167 mg/dL (26-217); Interpretation Comment: (.); PROEL- TOTAL PROTEIN 6.9 g/dL (6.0-8.5); PTT-LA 42.2 sec (0.0-43.5); Perinuclear Ab (P-ANCA) <1:20 titer (Neg:<1:20); Protein C, Functional 124 % (73-180); Protein S, Funtional 74 % (63-140); Thrombin Time 16.9 sec (0.0-23.0); dPT Confirm Ratio 1.15 Ratio (0.00-1.34)
== END | disposition home or self-care (01) ==
LOC: LAB 14:39
PROVIDERS: PCP Internal Medicine; Referring Provider Internal Medicine Gastroenterology; Visit Provider Internal Medicine Gastroenterology
DX: K55.9 Vascular disorder of intestine, unspecified (principal)
CPT/HCPCS: 36415; 81240; 81241; 82728; 82784; 83010; 83090; 83516; 83540; 83550; 83615; 84165; 85025; 85045; 85240; 85300; 85301; 85303; 85306; 85610; 85652; 85730; 86140; 86147; 86200; 86225; 86235; 86255; 86256; 86334

== ENCOUNTER 2023-04-26 11:50 | Emergency (ER) | payer OTHER, SELFPAY ==
[2023-04-26 11:51] VITALS: BP 136/86; PULSE 80; RESP 14; TEMP 36.4; O2SAT 98; BMI 29.2
--- NOTE | 2023-04-26 12:22 | CT_ITS ---
HISTORY: Pain. TECHNIQUE: CTA abdomen and pelvis pelvis was obtained after intravenous administration of 100 mL Isovue-370 with sagittal and coronal reconstructed MIP views. 3-D MIP and surface rendered reconstructions of the thoracic and abdominal aorta were provided. A radiation dose optimization technique was used for this scan 1007 images. COMPARISON: 12/03/2022. FINDINGS: LOWER CHEST: 6 mm noncalcified right middle lobe nodule. BOWEL: Bowel nondilated. 6 mm appendix, upper limits of normal in diameter without periappendiceal inflammation. No pericolonic inflammation or active intraluminal contrast extravasation on arterial phase images. Left lower quadrant colostomy and Kira pouch again seen. PERITONEUM: No significant ascites. LIVER: Fatty infiltration. GALLBLADDER: Contracted gallbladder with mild density in the fundus. SPLEEN/PANCREAS: Homogeneous and nonenlarged. KIDNEYS/ADRENAL GLANDS: Unremarkable. VESSELS: No abdominal aortic aneurysm or dissection flap. Mild atherosclerosis of the aortoiliac bifurcation. Patent celiac axis, superior or inferior mesenteric, and single bilateral renal arteries. Patent bilateral iliac arteries with mild atherosclerosis noted. PELVIC ORGANS: 1.7 cm left ovarian cyst again seen. BODY WALL: Several small fat-containing ventral and paraumbilical hernias. Left lower quadrant ostomy with moderate parastomal herniation of fat. Lower anterior scarring with an infraumbilical ventral hernia containing small bowel without small bowel wall thickening or inflammatory change in the hernia sac. OSSEOUS STRUCTURES: Intact. CT/CTA Abd/Pelvis W/WO Contrast IMPRESSION: 6 mm right middle lobe pulmonary nodule; recommend CT chest correlation. Left lower quadrant colostomy with parastomal fat herniation. Small fat-containing ventral and umbilical hernias. Infraumbilical ventral hernia containing small bowel without evidence for bowel obstruction or strangulation. Hepatic steatosis. Cholelithiasis or biliary sludge. Mild aortoiliac atherosclerosis. No evidence for abdominal aortic aneurysm or dissection. Stable small left ovarian cyst. Electronically Signed: Laura Franklin MD at 14:09 EDT ,
--- NOTE | 2023-04-26 12:22 | ED.VIS.GI ---
HPI HPI - GI History of Present Illness Chief Complaint: Abd Pain Narrative Narrative: 52-year-old female past medical history of colon resection, currently with diverting colostomy, anticipating reanastomosis presents with epigastric to left lower quadrant abdominal pain that she has had for the last 5 to 6 days. She relates history that back in December earlier this year, she needed emergency surgery for resection of the colon because it sounds like she had ischemic colitis. They thought maybe it was from diverticulitis. At that time she has had nausea, vomiting, and extreme pain. She had her colon resection performed by Dr. Thompson and is anticipating reanastomosis in a few months. She states that approximately a month ago she had pain for about 3 days, not as severe, that resolved on its own. Since , she has had pain in the epigastrium and in the left lower quadrant near her stoma. However, she is still getting output from her colostomy, and states that she had a healthy bowel movement into her colostomy bag which was almost normal. Usually she has pasty output. Additionally, she has not had any nausea or vomiting. No fevers or chills. She states that the pain has been relatively constant but increasing. She followed up with Dr. Overton with gastroenterology and is due for a CT tomorrow, but given her worsening pain, felt that it could not wait any longer. Additionally, they state that she had an abnormal laboratory result and his factor V Leyden positive so she is supposed to follow-up with hematology. They also state that they did not think that that positive results could necessarily be related to her previous problem with needing to have 14 inch colon resection. [facility] Medical History Abnormal Pap smear of cervix Anal or rectal pain Arthritis COVID-19 vaccine series completed Dermatitis Frequent headaches Mood swings Multiple joint pain Shortness of breath Surgical wound, non healing Tobacco abuse Home Medications fluoxetine 20 mg capsule See Rx Instructions .Route .COMPLEX #90 caps 06/08/22 [Rx Last Taken Unknown] promethazine 12.5 mg tablet 12.5 mg PO TID PRN nausea and vomiting #30 tabs 09/23/22 [Rx Last Taken Unknown] sumatriptan succinate 25 mg tablet (Imitrex) See Rx Instructions PO .COMPLEX #20 tabs 09/23/22 [Rx Last Taken Unknown] clotrimazole-betamethasone 1 %-0.05 % topical cream 1 applic topical BID 2 weeks #45 grams 11/10/22 [Rx Last Taken Unknown] fluticasone furoate 100 mcg-vilanterol 25 mcg/dose inhalation powder (Breo Ellipta) 1 inh inhalation Q24H #60 ea 01/03/23 [Rx Last Taken Unknown] omeprazole 20 mg capsule,delayed release See Rx Instructions .Route .COMPLEX #90 caps 03/30/23 [Rx Last Taken Unknown] dicyclomine 10 mg capsule 10 mg PO BID PRN abdominal pain #30 caps 04/25/23 [Rx Last Taken Unknown] oxycodone 5 mg tablet 5 mg PO Q6H PRN pain 3 days #12 tabs 04/26/23 [Rx Last Taken Unknown] Allergy/AdvReac Type Severity Reaction Status Date / Time Opioids - Morphine Analogues Allergy Severe passed out Verified 04/26/23 11:51 Family History Mother Arthritis Father Heart disease Hypertension Hypercholesteremia Myocardial infarction Blood clot in vein Diabetes Surgical History History of open sigmoidectomy Hx of tubal ligation S/P LEEP Status post Kira procedure Social History Smoking Status: Former smoker quit date: 10/10/18 Tobacco: How many years used: 25 second hand exposure: No alcohol intake: current alcohol intake frequency: a few times a month Alcohol type: wine substance use type: does not use caffeine: Yes what type of physical activity do you participate in: walking frequency: 1-2 times per week duration: 30-45 minutes/day seatbelt use: always do you feel safe at home: Yes additional social history: [id number]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 HEENT: No sore throat. No neck pain. No loss of vision. No rhinorrhea. Cardiovascular: No chest pain. No palpitations. No pedal edema. Respiratory: No cough, no shortness of breath. Abdominal: Epigastric and left lower quadrant abdominal pain. No nausea. No vomiting. Genitourinary: No dysuria. No hematuria. Musculoskeletal: No myalgias. No arthralgias. Neurologic: No headaches. No dizziness. No lightheadedness. Skin: No rash. No change in color. Psychiatric: No depression. No anxiety. EXAM Physical Exam Narrative Exam Narrative: Afebrile. Vital signs noted. HEENT: Normocephalic. Atraumatic. PERRL, EOMI. Neck soft and supple. No point tenderness or step off. Cardiovascular: Regular rate and rhythm. No murmurs, rubs, or gallops appreciated. Respiratory: No tachypnea. Lungs clear to auscultation bilaterally. Gastrointestinal: Abdomen soft, mild tenderness more periumbilical to left lower quadrant with normoactive bowel sounds. No rebound or guarding. Neurological: Awake. Alert. Nonfocal, nonlateralizing. Skin: No rash. Normal color. No pallor. Musculoskeletal: No pedal edema. Full range of motion extremities. Const Vital Signs: 04/26/23 11:51 Temperature 97.6 F L Temperature Source Temporal Pulse Rate 80 Respiratory Rate 14 Blood Pressure 136/86 H Blood Pressure Mean 102 Pulse Ox 98 Oxygen Delivery Method Room Air MDM MDM MDM Narrative Medical decision making narrative: Concern would be for ischemic bowel, versus bowel obstruction, but she is having bowel movements and not vomiting. She is supposed to have a CTA performed. I received a call from the missile technician, and the CT of the abdomen pelvis with IV contrast will be changed to CTA. I do feel that this would be able to help rule out abscess as well versus obstruction. I reviewed the patient's laboratory work and she has a normal white count of 8.4, hemoglobin normal at 13.8, platelet count normal at 288, electrolyte panel is grossly unremarkable with a normal sodium of 140, potassium normal at 3.9, BUN normal at 14 and creatinine 0.92. Glucose is slightly elevated at 142 but she has a normal anion gap of 7, LFTs are slightly elevated with an AST of 49 and ALT of 92 which I think is nonspecific. Lipase normal at 37, and I have low suspicion for pancreatitis for her epigastric pain. Urinalysis is negative for infection. Lactic acid is normal, giving me less suspicion for colonic or small bowel ischemia as she had colonic ischemia in the past. CTA of the abdomen and pelvis was reviewed. While there is no evidence of an acute process which would require antibiotics, no obstruction, there is an infraumbilical hernia which contains small bowel but there is no evidence of thickening or incarceration. I discussed patient with Dr. Thompson with general surgery who is familiar with the patient. She has reviewed the CT findings. She requested that I reevaluate the patient and pressed on her infra umbilical hernia to see if it reduces. I did so and while the patient was tender, she states she felt a pop, but it is not incarcerated, she has normal color to her skin, and her abdomen is soft. She was told that the hernia can come back and that it may require more definitive treatment in the future. I feel she can be discharged safely home after discussion with general surgery. She was written a prescription for oxycodone for the next 3 days. She was reassured. She was told to look for signs of incarceration including dusky skin, nausea and vomiting, decreased output into her stoma bag, and return with new or worsening symptoms. I do not feel she requires observation or admission. Patient and her are very comfortable with the plan. Disposition is discharged home in stable condition. History & Record Review Discussion w/independent historian: Patient and Family Additional record(s) reviewed:: Prior ED visit and Prior labs Lab Data Attestation: I reviewed the patient's lab results. Labs: Laboratory Results - last 24 hr 04/26/23 04/26/23 12:40 13:16 WBC 8.4 RBC 5.34 Hgb 13.8 Hct 42.8 MCV 80.1 L MCH 25.8 L MCHC 32.2 RDW Std Deviation 40.9 RDW Coeff of Shelton 14.2 Plt Count 288 MPV 9.8 Immature Gran % (Auto) 0.400 Neut % (Auto) 65.3 Lymph % (Auto) 27.1 Republic % (Auto) 5.1 Eos % (Auto) 1.4 Baso % (Auto) 0.7 Absolute Neuts (auto) 5.5 Absolute Lymphs (auto) 2.28 Nucleated RBC % 0 Sodium 140 Potassium 3.9 Chloride 107 Carbon Dioxide 26.0 Anion Gap 7 BUN 14 Creatinine 0.92 Estim Creat Clear Calc 63.17 Est GFR (MDRD) Af Amer 83 Est GFR (MDRD) Non-Af 69 BUN/Creatinine Ratio 15.2 Glucose 142 H Lactic Acid 1.4 Calcium 9.2 Total Bilirubin 0.50 AST 49 H ALT 92 H Alkaline Phosphatase 103 Total Protein 7.2 Albumin 3.5 Globulin 3.7 Albumin/Globulin Ratio 0.9 Lipase 37 Urine Color Yellow Urine Clarity Clear Urine pH 6.0 Ur Specific [place] 1.010 Urine Protein Negative Urine Glucose (UA) Normal Urine Ketones Negative Urine Occult Blood Negative Urine Nitrite Negative Urine Bilirubin Negative Urine Urobilinogen Normal Ur Leukocyte Esterase 25 H Urine RBC 0 SEEN Urine WBC 0 SEEN Ur Squamous Epith Cells 0 SEEN Urine Bacteria 0 SEEN Urine Mucus 0 SEEN Radiography Diagnostic Testing: Clinical Impression(s) from Imaging Studies Abdomen/Pelvis CTA 04/26/23 12:22 IMPRESSION: 6 mm right middle lobe pulmonary nodule; recommend CT chest correlation. Left lower quadrant colostomy with parastomal fat herniation. Small fat-containing ventral and umbilical hernias. Infraumbilical ventral hernia containing small bowel without evidence for bowel obstruction or strangulation. Hepatic steatosis. Cholelithiasis or biliary sludge. Mild aortoiliac atherosclerosis. No evidence for abdominal aortic aneurysm or dissection. Stable small left ovarian cyst. Electronically Signed: Laura Franklin MD at 14:09 EDT Reading Location ID and State: [facility] / [place] Tel , Service support , Discharge Plan Triage Chief Complaint: Abd Pain ED Provider: Yuriy Godinez Dx/Rx/DC Orders Clinical Impression: Ventral hernia, Abdominal pain Instructions: ED Abdominal Pain Unkn Cause Fem, ED Hernia (Adult) Prescriptions: New oxycodone 5 mg tablet 5 mg PO Q6H PRN (Reason: pain) 3 Days Qty: 12 0RF No Action sumatriptan succinate [Imitrex] 25 mg tablet See Rx Instructions PO .COMPLEX Qty: 20 1RF Rx Instructions: take 1 tab at onset of headache; if no relief may repeat 1 tab after at least 2 hrs; max = 4 tabs/24 hr PO promethazine 12.5 mg tablet 12.5 mg PO TID PRN (Reason: nausea and vomiting) Qty: 30 0RF clotrimazole-betamethasone 1-0.05 % cream 1 applic topical BID 14 Days Qty: 45 2RF fluoxetine 20 mg capsule See Rx Instructions .ROUTE .COMPLEX Qty: 90 3RF Dose Instruction: take 1 capsule by mouth once daily Rx Instructions: take 1 capsule by mouth once daily Breo Ellipta 100-25 mcg/dose blister with device 1 inh INHALATION Q24H Qty: 60 5RF Rx Instructions: after inhalation, rinse mouth with water and spit out; do not swallow omeprazole 20 mg capsule,delayed release(DR/EC) See Rx Instructions .ROUTE .COMPLEX Qty: 90 0RF Dose Instruction: take 1 capsule by mouth once daily Rx Instructions: take 1 capsule by mouth once daily dicyclomine 10 mg capsule 10 mg PO BID PRN (Reason: abdominal pain) Qty: 30 0RF Primary Care Provider: Shawanda Shields Referrals: Shawanda Shields MD [Primary Care Provider] - Barbie Thompson MD [Med Staff - Active Staff] - 3-5 Days if not improving Disposition Disposition: Home, Self Care
[2023-04-26] MEDS: 0.9% Normal Saline 1,000 ML 1000 ML IV (12:34)
[2023-04-26] MEDS: HYDROmorphone 1 MG/ML Syringe IV (12:35)
[2023-04-26] MEDS: Ondansetron 4 MG/2 ML Vial IV (12:35)
[2023-04-26 12:49] LABS: Absolute Lymphocyte Count 2.28 X10^3/uL (0.83-4.51); Absolute Neutrophil Count 5.5 X10^3/uL (2.0-7.7); Basophil# 0.06 X10^3/uL; Basophil% 0.7 % (0-1); Eosinophil# 0.12 X10^3/uL; Eosinophils% 1.4 % (0-5); Hematocrit 42.8 % (37-47); Hemoglobin 13.8 g/dL (12.0-15.0); Lymphocyte # 2.28 X10^3/ul (0.83-4.51); Lymphocyte % 27.1 % (19-41); Mean Corp Hgb Conc 32.2 g/dL (32-36); Mean Corpuscular Hgb 25.8 pg (27.0-32.0); Mean Corpuscular Volume 80.1 fL (81-99); Mean Platelet Vol. 9.8 fl (6.2-12.0); Monocyte# 0.43 X10^3/uL; Monocyte% 5.1 % (0-10); NRBC Flagged by Analyzer 0 % (0-5); Neutrophil # 5.48 X10^3/uL (2.7-7.7); Neutrophil % 65.3 % (47-70); Platelet Count 288 K/mm3 (150-450); RBC Distribution Width CV 14.2 % (11.6-14.6); RBC Distribution Width SD 40.9 fl (35.1-43.9); Red Blood Count 5.34 M/mm3 (4.2-5.4); White Blood Count 8.4 K/mm3 (4.4-11.0)
[2023-04-26 13:19] LABS: ALB/GLOB Ratio 0.9 RATIO (0.9-2.4); AST(SGOT) 49 U/L (15-37); Alanine Aminotransfer ALT/SGPT 92 U/L (13-56); Albumin, Serum 3.5 g/dL (3.2-5.0); Alkaline Phosphatase 103 U/L (45-117); Anion Gap 7 (5-15); BUN 14 mg/dL (7-18); BUN/Creat Ratio 15.2 RATIO (10-20); Calcium,Total 9.2 mg/dL (8.5-10.1); Chloride 107 mmol/L (98-107); Creatinine, Serum 0.92 mg/dL (0.55-1.02); EST Glomerular Filtration Rate 69 mL/min (>60); Est Glom Filt Rate - Afr Amer 83 mL/min (>60); Estimated Creatinine Clearance 63.17 ml/min; Globulin 3.7 g/dL (2.2-4.2); Glucose 142 mg/dL (74-106); Lipase 37 U/L (13-75); Potassium 3.9 mmol/L (3.5-5.1); Protein, Total 7.2 g/dL (6.4-8.2); Sodium Level 140 mmol/L (136-145)
[2023-04-26 13:21] LABS: Bacteria 0 SEEN /hpf (None Seen); Mucous, Urine 0 SEEN /hpf (<or=2+); Red Blood Cells-Urine 0 SEEN /hpf (0-5); Squamous Epithelial Cells - UA 0 SEEN /hpf (5-10); White Blood Cells 0 SEEN /hpf (0-5)
[2023-04-26 13:26] LABS: Lactic Acid 1.4 mmol/L (0.4-1.9)
[2023-04-26 13:30] LABS: Color, Urine Yellow (Yellow); Glucose, Dipstick Normal (Normal); Ketone-Dipstick Negative (Negative); Leukocyte Esterase-Dipstick 25 /ul (Negative); Nitrite-Dipstick Negative (Negative); Occult Blood-Urine Negative /ul (Negative); Protein-Dipstick Negative (Negative); Urine Bilirubin Dipstick Negative (Negative); Urine Clarity Clear (Clear); Urine Urobilinogen Normal (Normal)
[2023-04-26 13:50] VITALS: RESP 12
== END 2023-04-26 15:17 | disposition home or self-care (01) ==
PROVIDERS: Emergency Provider Emergency Medicine; PCP Internal Medicine; Visit Provider Emergency Medicine
DX: K43.9 Ventral hernia without obstruction or gangrene (principal); Z93.3 Colostomy status; Z79.899 Other long term (current) drug therapy; Z87.891 Personal history of nicotine dependence
CPT/HCPCS: 74174; 80053; 81001; 83605; 83690; 85025; 96361; 96374; 96375; 99283; J7030; Q9967; A4216; J2405

== ENCOUNTER → 2023-05-11 | Outpatient (CLI) | payer OTHER, SELFPAY ==
--- NOTE | 2023-05-11 07:53 | US_ITS ---
INDICATION: abd pain EXAMINATION: US Abdomen Limited (quadrant) TECHNIQUE: Urias scale and color doppler imaging was performed of the right upper quadrant. COMPARISON: CTA chest and abdomen from 04/26/2023 FINDINGS: LIVER: There is moderate increased echogenicity. No focal hepatic lesion. No significant intrahepatic biliary ductal dilatation. The right lobe of liver measures 16.8 cm in length. GALLBLADDER AND BILIARY TREE: Large shadowing stone within gallbladder lumen measures approximately 2 cm diameter. Other smaller mobile stones also noted. No significant gallbladder wall thickening or pericholecystic fluid demonstrated. The proximal common bile duct measures 4 mm. Sonographic Boyle''s sign: Negative. PANCREAS: Unremarkable as visualized. RIGHT KIDNEY: Right kidney measures 10.4 cm in length. No hydronephrosis. No discrete right renal lesion demonstrated. VESSELS: Unremarkable as visualized. US/Gallbladder IMPRESSION: 1. Cholelithiasis with no secondary signs of acute cholecystitis 2. Hepatic steatosis Electronically Signed: Jose Luis Sanchez MD at 7:43 EDT ,
== END | disposition home or self-care (01) ==
LOC: US 07:52
PROVIDERS: PCP Internal Medicine; Referring Provider Surgery; Visit Provider Surgery
DX: K55.9 Vascular disorder of intestine, unspecified (principal); R10.9 Unspecified abdominal pain
CPT/HCPCS: 76705

== ENCOUNTER 2023-05-17 05:52 | Day surgery (SDC) | payer OTHER, SELFPAY ==
--- NOTE | 2023-05-17 05:57 | HP.PCM_ITS ---
History and Physical Date of Admission: 05/17/23 Visit Reasons: ER F/U [facility] SEE CT RESULTS Chief Complaint: discuss hernias [employer] Required: No Is patient in pain?: No Allergies Opioids - Morphine Analogues Allergy (Severe, Verified 05/06/23 15:18) passed out Medications fluoxetine 20 mg capsule See Rx Instructions .Route .COMPLEX #90 caps 06/08/22 [Rx Confirmed 05/06/23] fluticasone furoate 100 mcg-vilanterol 25 mcg/dose inhalation powder (Breo Ellipta) 1 inh inhalation Q24H #60 ea 01/03/23 [Rx Confirmed 05/06/23] omeprazole 20 mg capsule,delayed release See Rx Instructions .Route .COMPLEX #90 caps 03/30/23 [Rx Confirmed 05/06/23] dicyclomine 10 mg capsule 10 mg PO BID PRN abdominal pain #30 caps 04/25/23 [Rx Confirmed 05/06/23] oxycodone 5 mg tablet 5 mg PO Q6H PRN pain 3 days #12 tabs 04/26/23 [Rx Confirmed 05/06/23] PFSH Medical History Abnormal Pap smear of cervix Anal or rectal pain Arthritis COVID-19 vaccine series completed Dermatitis Frequent headaches Mood swings Multiple joint pain Shortness of breath Surgical wound, non healing Tobacco abuse Surgical History History of open sigmoidectomy Hx of tubal ligation S/P LEEP Status post Kira procedure Family History Mother ArthritisFather Heart disease Hypertension Hypercholesteremia Myocardial infarction Blood clot in vein Diabetes Social History Smoking Status: Former smoker quit date: 10/10/18 Tobacco: How many years used: 25 second hand exposure: No alcohol intake: current alcohol intake frequency: a few times a month Alcohol type: wine substance use type: does not use caffeine: Yes what type of physical activity do you participate in: walking frequency: 1-2 times per week duration: 30-45 minutes/day seatbelt use: always do you feel safe at home: Yes additional social history: [id number] crew at [employer] Patient works at [employer] HPI HPI HPI: 52-year-old female who has been under the care of Dr. Barbie Thompson because of a sigmoid colon perforation subsequently treated with a Kira procedure. She has also been seen by Dr. Martini Friend. Rather complicated past history. The patient has most recently been seen by Dr. Thompson on January 10, 2023 where the patient's midline wound was still healing. The patient had presented to the [facility] emergency room November 24, 2022 with bilateral lower abdominal pain constipation lightheadedness. There was felt to be proximal small bowel obstruction in the mid abdomen also acute sigmoid diverticulitis with microperforation. On Nov that Donna took the patient to surgery. Postoperative diagnosis was necrotic gangrenous sigmoid colon with a laparoscopic converted to open sigmoid colectomy Kira procedure. Upon laparoscopic inspection there was noted to have feculent material throughout the abdomen. No operative discussion of small bowel involvement was made. Final pathology suggests diverticulosis and diverticulitis 1 benign lymph node The patient was followed in the office continue to appear to make good progress. Her most recent medical visit was April 26, 2023 when she presented to the emergency room complaining of left lower quadrant abdominal pain ongoing for 5 to 6 days. That note reports that the patient is factor V Leiden positive and she was to have a follow-up with hematology. A CTA of the abdomen pelvis was obtained showing peristomal fat herniation at the stoma site. Fat-containing ventral hernia superior to the umbilicus and at the umbilicus. In the suprapubic area there is an additional ventral hernia with a small bowel loop without evidence of obstruction. In addition there is felt to be cholelithiasis or sludge. I have personally reviewed those images and I believe the most pertinent finding is the degree of peristomal fat involvement at the end sigmoid colostomy and a loop of small bowel in the suprapubic ventral hernia. Patient's primary concern today though is abdominal pain. She points to the superior aspect of the left mid abdomen and sigmoid stoma and and she points to the infraumbilical midline. Also points to the supraumbilical midline. No nausea or vomiting. No fever chills or sweats. Her general physical activity though has been markedly diminished. No history of DVT. She was to be seen by hematology on Tuesday but that appointment apparently has been canceled per hematology. She is now placed back on a call list. Per Dr. Martini Friend AZAEL HURTADO, is a 52 F who presents to the office today for initial consult. [facility] hospitalization 11.24.22-12.06.22. [facility] ED with abdominal pain, bloody stool and lightheadedness with a fever. Biochemical workup and imaging concerning for diverticulitis with perforation she admitted for management. Diverticulitis treated with IV Zosyn. Pain continued to worsen and underwent emergent surgery 11.28.22. She began improving and diet was advanced.? CT abd/pel 11.24.22?hepatic steatosis; small hiatal hernia; proximal SBO with thickened bowel wall and valvulae conniventes to left midabdomen with circumferential wall thickening, ?mass versus intussusception; colonic dive rticulosis with changes consistent with diverticulitis; tiny amount of air seen along mesenteric side of sigmoid mesentery; ovarian cyst; small amount free fluid in cul-de-sac; atelectasis of lung.? CT abd/pel 11.24.22?hepatic steatosis; previously noted intussusception concern has resolved; diverticulosis with diverticulitis changes with microperforation.? CT abd/pel 11.27.22?normal liver; gallbladder with noncalcified stone; extensive gas formation along retroperitoneum secondary to perforated sigmoid diverticulitis; contained peritoneal perforation of diverticulitis; no free air; free fluid in cul-de-sac without abscess formation.? CT abd/pel 11.28.22?normal liver; solitary gallstone; small hiatal hernia; wall thickening of small bowel; diverticulitis; worsening pneumoperitoneum with large amount of free intraperitoneal air, stable air dissecting along retroperitoneum.? Laparoscopic converted to open sigmoidectomy with Kira?s procedure 11.28.22? with Dr. Thompson. Noted to have feculent/purulent material throughout abdomen necessitating conversion to open; sigmoid colon gangrenous/necrotic and removed. Pathology noting diverticulosis/diverticulitis with benign lymph node.? CT abd/pel 12.03.22?hepatic steatosis; gallbladder density, sludge versus gallstone; normal small intestine; colostomy in anterior LLQ; postoperative changes noted; drainage catheter with tip in right and left hemipelvis with minimal amount of fluid adjacent to this; no abscess or free air ROS General General: No weight change, appetite, fatigue, colon cancer, breast cancer or weakness HEENT HEENT: No difficulty swallowing, eye injury, eye surgery, swollen glands or hoarseness Endo Endocrine: No thyroid disease, diabetes mellitus, thyroid cancer, Hair loss, heat intolerance or cold intolerance Skin Skin: No rash or changing moles Breast Breast: No left breast lump, right breast lump, nipple discharge, breast pain, abnormal mammogram, abnormal US or breast enlargement Musc Musculoskeletal: Yes arthritis; No back problems, rheumatoid arthritis, gout or joint pain Cardio Cardiovascular: No murmur, pacemaker, heart disease, atrial fibrillation, high blood pressure, heart attack, heart stent, palpitations, shortness of breat with exertion or chest pain Psych Psychiatric: No depression, anxiety or hearing voices Resp Respiratory: No shortness of breath, No sleep apnea, No cough, No COPD, No asthma, No emphysema and No wheezing Gastro Gastrointestinal: Yes abdominal pain, No nausea or vomiting, No diarrhea, No constipation, No blood in stool, Yes acid reflux, No hemorrhoids, No ulcers, No gallbladder problem and No black,tarry stools Yash Hematologic: No blood thinners, No blood disorders, No bleeding, No anemia and No blood clots Neuro Neurologic: No system reviewed and no additional complaints, except as documented, No as per HPI, No abnormal gait, No abnormal hearing, No abnormal movements, No abnormal speech, No behavioral changes, No burning sensations, No confusion, No convulsions, No disequilibrium, No dizziness, No localized weakness, No frequent falls, No headache(s), No lack of coordination, No loss of vision, No memory loss, No numbness, No other visual disturbances, No radicular pain, No restless legs, No sensory deficit, No syncope, No tingling, No tremor(s), No weakness and No other Exam Const General: cooperative, healthy appearing, comfortable and no acute distress Nutritional Appearance: overweight Orientation: alert and awake [facility] Head: normal to inspection Eyes General: appearance normal, both eyes and all related structures Neck Neck: normal visual inspection Chest Chest palpation & inspection: normal inspection of the chest Resp Effort & Inspection: normal respiratory effort Auscultation: clear to auscultation bilaterally Cardio Rate: regular rate Rhythm: regular rhythm GI Palpation: soft and no hepatosplenomegaly Auscultation: normal bowel sounds Musc Cervical Spine: normal cervical lordosis Skin General: no rashes or lesions noted Neuro General: patient alert, patient awake and patient oriented x3 Extrem General: no calf tenderness Psych Appearance: grossly normal Assessment and Plan Assessment and Plan (1) Ventral hernia: Status: Acute Qualifiers: Obstruction and gangrene presence: without obstruction or gangrene Qualified Code(s): K43.9 - Ventral hernia without obstruction or gangrene (2) Status post Kira procedure: Status: Acute (3) History of open sigmoidectomy: Status: Acute (4) Tobacco abuse: Status: Chronic (5) Gallstones: Status: Acute (6) Factor V Leiden: Status: Acute Orders: Orders Gallbladder Today K55.9 - Vascular disorder of intestine, unspecified, R10.9 - Unspecified abdominal pain Plan Complex 52-year-old female who. She has an end sigmoid colostomy left lower quadrant there is peristomal fat that is protruding and causing her discomfort and partially compressing the sigmoid. This will need to be resolved at the time of her takedown colostomy End Kira pouch. Length is not determined. I recommend a colonoscopy per her left mid abdomen stoma and per rectum. Inspect for polyp disease and particularly measure the length of the remaining rectosigmoid. If there is enough rectosigmoid remaining then I would propose that we should be able to keep the patient locally to perform the takedown. If a very short rectum is identified and the patient would have the elective to be referred to a tertiary center if she desired Multiple midline ventral incisional hernias with the upper 3 containing incarcerated fat. An additional fourth hernia suprapubically that has a loop of small bowel that is reducible Possible gallstones or sludge. Recommend that we pursue a gallbladder ultrasound for evaluation. If the patient has gall stone disease then I would propose a laparoscopic cholecystectomy with selective cholangiograms to start her takedown procedure and then convert to an open procedure for the planned takedown colostomy and anastomosis. Because of the patient's history of colonic ischemia and perforation with diffuse fecal contamination of the abdomen the patient is aware that I am expecting the likelihood of extensive adhesions which could complicate the required mobilization and dissection and identification of the rectosigmoid With the patient's multiple hernias parastomal and ventral incisional she is aware that we would not anticipate placing mesh at the time of her initial p rocedure. If a cholecystectomy can be achieved with a takedown colostomy then I would consider perhaps 3 months into the postoperative period returning hopefully laparoscopically to support the left mid abdomen and ventral incisional hernia repair with mesh. The patient is aware that with the number of hernias that she has that a simple suture repair will fail and she will have recurrent defects. I would not want to add a mesh repair if possible in the light of the planned contaminated takedown procedure. Dr. Martini Friend has identified factor V Leiden. The patient would benefit certainly from a hematology oncology appointment and we will try to work hard to continue to facilitate that appointment Finally the patient is aware that I will will be cutting back some of my work days. We would ideally find a day for this procedure when I would be available to follow her in the immediate postoperative course. The patient and her have had an opportunity to ask and have questions answered. We will schedule gallbladder ultrasound and colonoscopy and facilitate the hematology appointment. Pending those results we will make further recommendations as to how and when to proceed. The patient has been vigorously encouraged to completely cease her tobacco use. She has been encouraged to remain as mobile and physically active as she can while awaiting her upcoming procedure Copy: Dr. Barbie Thompson and Dr. Shawanda Shields and Dr. Vini Waddell M.D., F.A.C.S I have examined the patient and the H&P has been reviewed. There are no clinical changes since date of exam. Fernando Waddell M.D., F.A.C.S.
[2023-05-17 06:28] VITALS: BP 120/89; PULSE 66; RESP 16; TEMP 36.6; O2SAT 95; BMI 29.9
[2023-05-17] MEDS: Lactated Ringers 1,000 ML 15 ML IV (06:35)
[2023-05-17 07:35] VITALS: BP 120/89; BP 96/64; BP 98/65; PULSE 74; PULSE 80; RESP 18; TEMP 36.5; O2SAT 95; O2SAT 96
--- NOTE | 2023-05-17 07:39 | OP.CCLET_ITS ---
05/17/2023 Shawanda Shields MD [address] [address] [place] [address] Re : Colonoscopy procedure for [facility] Dear Dr. Shields This procedure was performed on Wednesday, May 17, 2023. My impressions and recommendations are as follows: Impressions : - The entire examined colon is normal. - No specimens collected. Recommendations : - Discharge patient to home. - Resume previous diet. - Repeat colonoscopy in 10 years for screening purposes. - Return to my office in 2 weeks. - Continue present medications. My findings are described in the full procedure note, which is enclosed. If I can be of further assistance, please feel free to contact me at Doctor phone number(s): Work: . Sincerely, Fernando Waddell MD 05/17/2023 7:38:19 AM This report has been signed electronically.
--- NOTE | 2023-05-17 07:39 | OP.COLON_ITS ---
Patient Name: Alexandrea Gamboa Procedure Date: 05/17/2023 6:44 AM Date of : 1970 Age: 52 Procedure: Colonoscopy Indications: Preoperative assessment Providers: Fernando Waddell MD Referring MD: Shawanda Shields MD Medicines: See the Anesthesia note for documentation of the administered medications Patient Profile: Last Colonoscopy: none. The patient's first colonoscopy is today. Complications: No immediate complications. Procedure: Pre-Anesthesia Assessment: - Prior to the procedure, a History and Physical was performed, and patient medications and allergies were reviewed. The patient's tolerance of previous anesthesia was also reviewed. The risks and benefits of the procedure and the sedation options and risks were discussed with the patient. All questions were answered, and informed consent was obtained. Prior Anticoagulants: The patient has taken no previous anticoagulant or antiplatelet agents. ASA Grade Assessment: II - A patient with mild systemic disease. After reviewing the risks and benefits, the patient was deemed in satisfactory condition to undergo the procedure. After I obtained informed consent, the scope was passed under direct vision. Throughout the procedure, the patient's blood pressure, pulse, and oxygen saturations were monitored continuously. The pediatric colonoscope was introduced through the anus and advanced to the cecum, identified by appendiceal orifice and ileocecal valve. The colonoscopy was performed without difficulty. The patient tolerated the procedure well. The quality of the bowel preparation was good. The ileocecal valve and the appendiceal orifice were photographed. Scope In: 7:22:26 AM Scope Withdrawal Time 0 hours 6 minutes 4 seconds Scope Out: 7:32:15 AM Total Procedure Duration Time 0 hours 9 minutes 49 seconds Findings: The perianal and digital rectal examinations were normal. The colon (entire examined portion) appeared normal. The scope was examined per the left lower quadrant and sigmoid colostomy and per the rectal Kira pouch. The rectal Kira pouch length was 15 cm and a permanent suture and staple line was identified at that location. Impression: - The entire examined colon is normal. - No specimens collected. Recommendation: - Discharge patient to home. - Resume previous diet. - Repeat colonoscopy in 10 years for screening purposes. - Return to my office in 2 weeks. - Continue present medications. Procedure Code(s): --- Professional --- 84674, Colonoscopy, flexible; diagnostic, including collection of specimen(s) by brushing or washing, when performed (separate procedure) Diagnosis Code(s): --- Professional --- Z01.818, Encounter for other preprocedural examination CPT copyright 2017 [employer]. All rights reserved. The codes documented in this report are preliminary and upon concierge receptionist review may be revised to meet current compliance requirements. Fernando Waddell MD 05/17/2023 7:38:19 AM This report has been signed electronically. Number of Addenda: 0 Note Initiated On: 05/17/2023 6:44 AM
[2023-05-17 07:45] VITALS: BP 120/89; BP 94/70; PULSE 70; RESP 18; O2SAT 94
[2023-05-17 07:50] VITALS: BP 103/71; BP 120/89; PULSE 83; RESP 18; O2SAT 98
[2023-05-17 07:54] VITALS: BP 112/72; BP 120/89; PULSE 71; RESP 18; TEMP 36.4; O2SAT 95
[2023-05-17 08:20] VITALS: BP 120/89
== END 2023-05-17 08:31 | disposition home or self-care (01) ==
LOC: EN 05:53 → AC 05:54
PROVIDERS: PCP Internal Medicine; Referring Provider Internal Medicine; Visit Provider Surgery
PROC: 0DJD8ZZ Inspection of Lower Intestinal Tract, Via Natural or Artificial Opening Endoscopic (ICD-10-PCS; CPT 45378; principal; 2023-05-17 06:55)
DX: Z01.818 Encounter for other preprocedural examination (principal); Z93.3 Colostomy status; K55.9 Vascular disorder of intestine, unspecified; D68.51 Activated protein C resistance; K80.20 Calculus of gallbladder without cholecystitis without obstruction; Z87.891 Personal history of nicotine dependence; K43.9 Ventral hernia without obstruction or gangrene; K44.9 Diaphragmatic hernia without obstruction or gangrene; K21.9 Gastro-esophageal reflux disease without esophagitis; Z79.899 Other long term (current) drug therapy
CPT/HCPCS: 44388; J7120; J2405

== ENCOUNTER 2023-06-15 12:50 | Inpatient (IN) | payer OTHER, SELFPAY ==
--- NOTE | 2023-06-14 12:59 | EKG12_ITS ---
Test Reason : PREOP Blood Pressure : / mmHG Vent. Rate : 068 BPM Atrial Rate : 068 BPM P-R Int : 142 ms QRS Dur : 074 ms QT Int : 378 ms P-R-T Axes : 050 025 069 degrees QTc Int : 401 ms Normal sinus rhythm Nonspecific T wave abnormality Abnormal ECG Confirmed by KARISHMA CEDENO, JANAK ([id number]), editor school photograph [employer] ([id number]) on 06/17/2023 11:47:41 AM Referred By: Fernando Waddell Confirmed By:JANAK SCHWARZ MD
[2023-06-14 13:39] LABS: Hematocrit 41.5 % (37-47); Hemoglobin 13.9 g/dL (12.0-15.0); Mean Corp Hgb Conc 33.5 g/dL (32-36); Mean Corpuscular Hgb 26.7 pg (27.0-32.0); Mean Corpuscular Volume 79.8 fL (81-99); Mean Platelet Vol. 9.5 fl (6.2-12.0); Platelet Count 273 K/mm3 (150-450); RBC Distribution Width CV 13.8 % (11.6-14.6); White Blood Count 6.9 K/mm3 (4.4-11.0)
[2023-06-14 13:56] LABS: Magnesium 2.3 mg/dL (1.6-2.6)
[2023-06-14 13:57] LABS: Anion Gap 8 (5-15); BUN 15 mg/dL (7-18); Calcium,Total 9.2 mg/dL (8.5-10.1); Chloride 106 mmol/L (98-107); EST Glomerular Filtration Rate 62 mL/min (>60); Est Glom Filt Rate - Afr Amer 75 mL/min (>60); Glucose 155 mg/dL (74-106); Potassium 3.6 mmol/L (3.5-5.1); Sodium Level 139 mmol/L (136-145)
[2023-06-15] VITALS (13 sets, daily range): BP systolic 107–140; BP diastolic 69–101; PULSE 65–87; RESP 10–18; TEMP 36.1–36.8; O2SAT 94–100; BMI 30.2
--- NOTE | 2023-06-15 06:13 | PCM.HP.BLA ---
History and Physical Date of Admission: 06/15/23 Allergies Opioids - Morphine Analogues Allergy (Severe, Verified 05/25/23 14:03) passed out Medications fluoxetine 20 mg capsule See Rx Instructions .Route .COMPLEX #90 caps 06/08/22 Rx Confirmed 06/01/23 omeprazole 20 mg capsule,delayed release See Rx Instructions .Route .COMPLEX #90 caps 03/30/23 Rx Confirmed 06/01/23 metronidazole 500 mg tablet 500 mg PO .COMPLEX #6 tabs 06/01/23 Rx Confirmed 06/01/23 neomycin 500 mg tablet 500 mg PO .COMPLEX pre-op antibiotics #6 tabs 06/01/23 Rx Confirmed 06/01/23 PFSH Medical History Abnormal Pap smear of cervix Anal or rectal pain Arthritis Colostomy in place COVID-19 vaccine series completed Dermatitis Former smoker Frequent headaches Gastric reflux Heterozygous factor V Leiden mutation Lung nodule seen on imaging study Mood swings Multiple joint pain Osteoarthritis of carpometacarpal joint of right thumb Pain of right thumb Vapes nicotine containing substance Surgical History (Updated 05/25/23 @ 14:05 by Zoila Kemp) History of colonoscopy History of open sigmoidectomy Hx of tubal ligation S/P LEEP Status post Kira procedure Family History (Updated 05/25/23 @ 14:08 by Zoila Kemp) Mother ArthritisFather Heart disease Hypertension Hypercholesteremia Myocardial infarction Blood clot in vein DiabetesBrother Heart disease Social History (Updated 05/25/23 @ 14:07 by Zoila Kemp) Smoking Status: Former smoker quit date: 10/10/18 Tobacco: How many years used: 25 how long ago did patient quit smoking: couple packs per week x 25 years second hand exposure: No alcohol intake: current alcohol intake frequency: a few times a month Alcohol type: wine substance use type: does not use caffeine: Yes what type of physical activity do you participate in: walking frequency: 1-2 times per week duration: 30-45 minutes/day seatbelt use: always do you feel safe at home: Yes additional social history: [employer]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 Her most recent investigation included on May 17, 2023 a colonoscopy per stoma in the left lower quadrant and per rectum.? The entire colon appeared to be normal.? The rectal Kira pouch was felt to be approximately 15 cm in length.? A permanent suture and staple line identified.? On May 11, 2023 she had a gallbladder ultrasound.? A large shadowing stone within the gallbladder approximately 2 cm in diameter and other smaller stones identified.? The proximal common bile duct measures 4 mm.? Hepatic steatosis noted. On May 25, 2023 the patient had a hematology consultation with Dr. Laurie Montes because of a factor V Leiden gene mutation positivity.? At the time of the patient's Kira procedure she was felt to have gangrenous ischemic bowel.? A hypercoagulability panel March 2023 demonstrated heterozygous for factor V Leiden elevated factor VIII level of 157%.? By report the patient's father also had lower extremity DVTs and was on long-term anticoagulation.? The patient herself has had no personal history of DVT.? It is felt that her lifetime risk of developing VTE is low at 5 to 10%.? It is not felt that she gets at high risk for arterial thromboembolism.? Low-dose Lovenox starting 12 to 24 hours post operatively is recommended.? Tobacco cessation is recommended.? Estrogen containing oral contraceptives or replacement is contraindicated.? No current anticoagulation is recommended. My previous notes reflect the following Chief Complaint: discuss hernias Technical Designer Required: No Is patient in pain?: No Allergies Opioids - Morphine Analogues Allergy (Severe, Verified 05/06/23 15:18) passed out Medications fluoxetine 20 mg capsule See Rx Instructions .Route .COMPLEX #90 caps 06/08/22 Rx Confirmed 05/06/23 fluticasone furoate 100 mcg-vilanterol 25 mcg/dose inhalation powder (Breo Ellipta) 1 inh inhalation Q24H #60 ea 01/03/23 Rx Confirmed 05/06/23 omeprazole 20 mg capsule,delayed release See Rx Instructions .Route .COMPLEX #90 caps 03/30/23 Rx Confirmed 05/06/23 dicyclomine 10 mg capsule 10 mg PO BID PRN abdominal pain #30 caps 04/25/23 Rx Confirmed 05/06/23 oxycodone 5 mg tablet 5 mg PO Q6H PRN pain 3 days #12 tabs 04/26/23 Rx Confirmed 05/06/23 PFSH Medical History Abnormal Pap smear of cervix Anal or rectal pain Arthritis COVID-19 vaccine series completed Dermatitis Frequent headaches Mood swings Multiple joint pain Shortness of breath Surgical wound, non healing Tobacco abuse Surgical History History of open sigmoidectomy Hx of tubal ligation S/P LEEP Status post Kira procedure Family History Mother ArthritisFather Heart disease Hypertension Hypercholesteremia Myocardial infarction Blood clot in vein Diabetes Social History Smoking Status:? Former smoker quit date: 10/10/18 Tobacco: How many years used:? 25 second hand exposure:? No alcohol intake:? current alcohol intake frequency: a few times a month Alcohol type: wine substance use type:? does not use caffeine:? Yes what type of physical activity do you participate in:? walking frequency:? 1-2 times per week duration:? 30-45 minutes/day seatbelt use:? always do you feel safe at home:? Yes additional social history:? 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 Barbie Thompson because of a sigmoid colon perforation subsequently treated with a Kira procedure.? She has also been seen by Dr. Vini Overton.? Rather complicated past history.? The patient has most recently been seen by Dr. Thompson on January 10, 2023 where the patient's midline wound was still healing. The patient had presented to the [facility] emergency room November 24, 2022 with bilateral lower abdominal pain constipation lightheadedness.? There was felt to be proximal small bowel obstruction in the mid abdomen also acute sigmoid diverticulitis with microperforation.? On November 2022 that Donna took the patient to surgery.? Postoperative diagnosis was necrotic gangrenous sigmoid colon with a laparoscopic converted to open sigmoid colectomy Kira procedure.? Upon laparoscopic inspection there was noted to have feculent material throughout the abdomen.? No operative discussion of small bowel involvement was made.? Final pathology suggests diverticulosis and diverticulitis 1 benign lymph node The patient was followed in the office continue to appear to make good progress.? Her most recent medical visit was April 26, 2023 when she presented to the emergency room complaining of left lower quadrant abdominal pain ongoing for 5 to 6 days.? That note reports that the patient is factor V Leiden positive and she was to have a follow-up with hematology.? A CTA of the abdomen pelvis was obtained showing peristomal fat herniation at the stoma site.? Fat-containing ventral hernia superior to the umbilicus and at the umbilicus.? In the suprapubic area there is an additional ventral hernia with a small bowel loop without evidence of obstruction.? In addition there is felt to be cholelithiasis or sludge.? I have personally reviewed those images and I believe the most pertinent finding is the degree of peristomal fat involvement at the end sigmoid colostomy and a loop of small bowel in the suprapubic ventral hernia. Patient's primary concern today though is abdominal pain.? She points to the superior aspect of the left mid abdomen and sigmoid stoma and and she points to the infraumbilical midline.? Also points to the supraumbilical midline.? No nausea or vomiting.? No fever chills or sweats.? Her general physical activity though has been markedly diminished.? No history of DVT. She was to be seen by hematology on Tuesday but that appointment apparently has been canceled per hematology.? She is now placed back on a call list. Per Dr. Martini Friend AZAEL HURTADO, is a 52 F who presents to the office today for initial consult. [facility] hospitalization 11.24.22-12.06.22. [facility] ED with abdominal pain, bloody stool and lightheadedness with a fever. Biochemical workup and imaging concerning for diverticulitis with perforation she admitted for management. Diverticulitis treated with IV Zosyn. Pain continued to worsen and underwent emergent surgery 11.28.22. She began improving and diet was advanced.? CT abd/pel 11.24.22?hepatic steatosis; small hiatal hernia; proximal SBO with thickened bowel wall and valvulae conniventes to left midabdomen with circumferential wall thickening, ?mass versus intussusception; colonic diverticulosis with changes consistent with diverticulitis; tiny amount of air seen along mesenteric side of sigmoid mesentery; ovarian cyst; small amount free fluid in cul-de-sac; atelectasis of lung.? CT abd/pel 11.24.22?hepatic steatosis; previously noted intussusception concern has resolved; diverticulosis with diverticulitis changes with microperforation.? CT abd/pel 11.27.22?normal liver; gallbladder with noncalcified stone; extensive gas formation along retroperitoneum secondary to perforated sigmoid diverticulitis; contained peritoneal perforation of diverticulitis; no free air; free fluid in cul-de-sac without abscess formation.? CT abd/pel 11.28.22?normal liver; solitary gallstone; small hiatal hernia; wall thickening of small bowel; diverticulitis; worsening pneumoperitoneum with large amount of free intraperitoneal air, stable air dissecting along retroperitoneum.? Laparoscopic converted to open sigmoidectomy with Kira?s procedure 11.28.22?with Dr. Thompson. Noted to have feculent/purulent material throughout abdomen necessitating conversion to open; sigmoid colon gangrenous/necrotic and removed. Pathology noting diverticulosis/diverticulitis with benign lymph node.? CT abd/pel 12.03.22?hepatic steatosis; gallbladder density, sludge versus gallstone; normal small intestine; colostomy in anterior LLQ; postoperative changes noted; drainage catheter with tip in right and left hemipelvis with minimal amount of fluid adjacent to this; no abscess or free air ROS General General: No weight change, appetite, fatigue, colon cancer, breast cancer or weakness HEENT HEENT: No difficulty swallowing, eye injury, eye surgery, swollen glands or hoarseness Endo Endocrine: No thyroid disease, diabetes mellitus, thyroid cancer, Hair loss, heat intolerance or cold intolerance Skin Skin: No rash or changing moles Breast Breast: No left breast lump, right breast lump, nipple discharge, breast pain, abnormal mammogram, abnormal US or breast enlargement Musc Musculoskeletal: Yes arthritis; No back problems, rheumatoid arthritis, gout or joint pain Cardio Cardiovascular: No murmur, pacemaker, heart disease, atrial fibrillation, high blood pressure, heart attack, heart stent, palpitations, shortness of breat with exertion or chest pain Psych Psychiatric: No depression, anxiety or hearing voices Resp Respiratory: No shortness of breath, No sleep apnea, No cough, No COPD, No asthma, No emphysema and No wheezing Gastro Gastrointestinal: Yes abdominal pain, No nausea or vomiting, No diarrhea, No constipation, No blood in stool, Yes acid reflux, No hemorrhoids, No ulcers, No gallbladder problem and No black,tarry stools Yash Hematologic: No blood thinners, No blood disorders, No bleeding, No anemia and No blood clots Neuro Neurologic: No system reviewed and no additional complaints, except as documented, No as per HPI, No abnormal gait, No abnormal hearing, No abnormal movements, No abnormal speech, No behavioral changes, No burning sensations, No confusion, No convulsions, No disequilibrium, No dizziness, No localized weakness, No frequent falls, No headache(s), No lack of coordination, No loss of vision, No memory loss, No numbness, No other visual disturbances, No radicular pain, No restless legs, No sensory deficit, No syncope, No tingling, No tremor(s), No weakness and No other Exam Const General: cooperative, healthy appearing, comfortable and no acute distress Nutritional Appearance: overweight Orientation: alert and awake [facility] Head: normal to inspection Eyes General: appearance normal, both eyes and all related structures Neck: normal visual inspection Chest Chest palpation & inspection: normal inspection of the chest Resp Effort & Inspection: normal respiratory effort Auscultation: clear to auscultation bilaterally Cardio Rate: regular rate Rhythm: regular rhythm GI Palpation: soft and no hepatosplenomegaly Auscultation: normal bowel sounds Musc Cervical Spine: normal cervical lordosis Skin General: no rashes or lesions noted Neuro General: patient alert, patient awake and patient oriented x3 Extrem General: no calf tenderness Psych Appearance: grossly normal Assessment and Plan Assessment and Plan (1) Ventral hernia: ?Status: Acute ? Qualifiers: ? Obstruction and gangrene presence: without obstruction or gangrene? Qualified Code(s): K43.9 - Ventral hernia without obstruction or gangrene (2) Status post Kira procedure: ?Status: Acute (3) History of open sigmoidectomy: ?Status: Acute (4) Tobacco abuse: ?Status: Chronic (5) Gallstones: (6) Factor V Leiden: ?Status: Acute ? Orders: Orders Gallbladder? Today??? K55.9 - Vascular disorder of intestine, unspecified, R10.9 - Unspecified abdominal pain? Plan Complex 52-year-old female who. She has an end sigmoid colostomy left lower quadrant there is peristomal fat that is protruding and causing her discomfort and partially compressing the sigmoid.? This will need to be resolved at the time of her takedown colostomy End Kira pouch.? Length is not determined.? I recommend a colonoscopy per her left mid abdomen stoma and per rectum.? Inspect for polyp disease and particularly measure the length of the remaining rectosigmoid.? If there is enough rectosigmoid remaining then I would propose that we should be able to keep the patient locally to perform the takedown.? If a very short rectum is identified and the patient would have the elective to be referred to a tertiary center if she desired Multiple midline ventral incisional hernias with the upper 3 containing incarcerated fat.? An additional fourth hernia suprapubically that has a loop of small bowel that is reducible Possible gallstones or sludge.? Recommend that we pursue a gallbladder ultrasound for evaluation.? If the patient has gall stone disease then I would propose a laparoscopic cholecystectomy with selective cholangiograms to start her takedown procedure and then convert to an open procedure for the planned takedown colostomy and anastomosis.? Because of the patient's history of colonic ischemia and perforation with diffuse fecal contamination of the abdomen the patient is aware that I am expecting the likelihood of extensive adhesions which could complicate the required mobilization and dissection and identification of the rectosigmoid With the patient's multiple hernias parastomal and ventral incisional she is aware that we would not anticipate placing mesh at the time of her initial procedure.? If a cholecystectomy can be achieved with a takedown colostomy then I would consider perhaps 3 months into the postoperative period returning hopefully laparoscopically to support the left mid abdomen and ventral incisional hernia repair with mesh.? The patient is aware that with the number of hernias that she has that a simple suture repair will fail and she will have recurrent defects.? I would not want to add a mesh repair if possible in the light of the planned contaminated takedown procedure. Dr. Martini Friend has identified factor V Leiden.? The patient would benefit certainly from a hematology oncology appointment and we will try to work hard to continue to facilitate that appointment Finally the patient is aware that I will will be cutting back some of my work days.? We would ideally find a day for this procedure when I would be available to follow her in the immediate postoperative course. The patient and her have had an opportunity to ask and have questions answered. We will schedule gallbladder ultrasound and colonoscopy and facilitate the hematology appointment.? Pending those results we will make further recommendations as to how and when to proceed. The patient has been vigorously encouraged to completely cease her tobacco use.? She has been encouraged to remain as mobile and physically active as she can while awaiting her upcoming procedure Copy: Dr. Barbie Thompson and Dr. Shawanda Shields and Dr. Martini Friend I recommend to the patient a laparoscopic cholecystectomy with selective cholangiography.? We will combine this with a laparoscopic bilateral transabdominal plane block.? Then anticipate due to the amount of contamination that she had previously that we likely will need to convert to an open takedown of her left lower quadrant and sigmoid colostomy with potential mobilization of the splenic flexure.? Perhaps some of the splenic flexure mobilization can be performed laparoscopically as well.? The ultimate goal is takedown of end colostomy with rectosigmoid anastomosis.? Finally the patient has multiple ventral incisional hernias.? I have instructed the patient that I will not attempt a mesh repair at this point but would consider a repeat investigation again hopefully laparoscopically approximately 3 months postoperatively to perform a mesh repair as it is anticipated that she will have early hernia recurrence.? She is aware of the technique, benefit, risk, alternatives.? No guarantees of success have been offered. I have vigorously encouraged the patient to cease her tobacco use.? We will utilized a enhanced recovery protocol. Fernando Waddell M.D., F.A.C.S. Copy: Dr. Shawanda LIZARRAGA General General: No weight change, appetite, fatigue, colon cancer, breast cancer or weakness HEENT HEENT: No difficulty swallowing, eye injury, eye surgery, swollen glands or hoarseness Endo Endocrine: No thyroid disease, diabetes mellitus, thyroid cancer, Hair loss, heat intolerance or cold intolerance Skin Skin: No rash or changing moles Breast Breast: No left breast lump, right breast lump, nipple discharge, breast pain, abnormal mammogram, abnormal US or breast enlargement Musc Musculoskeletal: Yes arthritis; No back problems, rheumatoid arthritis, gout or joint pain Cardio Cardiovascular: No murmur, pacemaker, heart disease, atrial fibrillation, high blood pressure, heart attack, heart stent, palpitations, shortness of breat with exertion or chest pain Psych Psychiatric: No depression, anxiety or hearing voices Resp Respiratory: No shortness of breath, No sleep apnea, No cough, No COPD, No asthma, No emphysema and No wheezing Gastro Gastrointestinal: Yes abdominal pain, No nausea or vomiting, No diarrhea, No constipation, No blood in stool, Yes acid reflux, No hemorrhoids, No ulcers, No gallbladder problem and No black,tarry stools Yash Hematologic: No blood thinners, No blood disorders, No bleeding, No anemia and No blood clots Neuro Neurologic: No system reviewed and no additional complaints, except as documented, No as per HPI, No abnormal gait, No abnormal hearing, No abnormal movements, No abnormal speech, No behavioral changes, No burning sensations, No confusion, No convulsions, No disequilibrium, No dizziness, No localized weakness, No frequent falls, No headache(s), No lack of coordination, No loss of vision, No memory loss, No numbness, No other visual disturbances, No radicular pain, No restless legs, No sensory deficit, No syncope, No tingling, No tremor(s), No weakness and No other With the patient's present I have reviewed her status. She has been more active. She has stopped vaping. She states that her abdominal pain has lessened. She has no particular complaints today. She is aware that we plan laparoscopic bilateral transverses abdominal plane block and laparoscopic cholecystectomy and laparoscopic mobilization of the splenic flexure with possible laparoscopic takedown of her colostomy although I am anticipating more extensive adhesions requiring an open approach. She is aware that we are planning likely simple suture repair of hernias where encountered but that she will need a future more definitive ventral incisional and left lower quadrant stomal incisional hernia repair. She has had an opportunity ask and have questions answered. We will proceed as noted. Fernando Waddell M.D., F.A.C.S.
--- NOTE | 2023-06-15 06:21 | EX.PCM.DISCH ---
Discharge Instructions Procedure General Surgery Diet Discharge Diet: Light diet - advance as tolerated (if you have questions about your diet instructions, please talk to you doctor.) Activity Discharge Activity: May Not Drive (for 3-5 days or while taking narcotic pain medicine.) May shower in (days): 1 Lifting Restrictions: 10 pounds Dressing / Incision Call your doctor if your incision/area has: Continuous Slow Oozing, Sudden Increased Bleeding, Increased Pain/ Swelling, Increased Redness and Foul Smelling Discharge Call your doctor if you observe: Fever of 101 or Higher Suture Line Care: Avoid Pulling/Pushing and Avoid Pinching/Bending Additional Dressing/Incision Instructions:: Change or remove dressing in 2 days. Leave steri-strips in place for 1 week. You may change the left lower quadrant stoma dressing daily and cleanse the [place] site with a Q-tip and peroxide as needed reapply dry gauze Subcutaneous Lovenox therapy 40 mg subcutaneous injection daily for 7 days postoperatively have been prescribed. 10 syringes have been provided if need to extend therapy. Recommend alternating acetaminophen with ibuprofen as needed for pain control. Follow Up Care Please Follow Up With: Fernando Waddell MD When: Call [phone] to make an appointment to be seen on Tuesday, June 20, 2020 3 in the afternoon with Elisa. This would allow me to be present as well. Test Results: Test results from this visit will be discussed in further detail at your follow-up appointment, if applicable. Discharge Plan Admission Admit Date/Time: 06/15/23 12:50 Primary Reason for Your Visit: Takedown colostomy/Chronic cholecystitis cholelithias/hernia Attending Provider: Fernando Waddell Primary Care Provider: Shawanda Shields Discharge Orders/Prescriptions Prescriptions: New hydrocodone-acetaminophen 5-325 mg tablet 1 tab PO Q6H PRN (Reason: pain) 3 Days Qty: 10 0RF enoxaparin 40 mg/0.4 mL syringe 40 mg subcut DAILY Qty: 4 0RF hydrocodone-acetaminophen 5-325 mg tablet 1 tab PO Q6H PRN (Reason: pain) 3 Days Qty: 10 0RF Continued omeprazole 20 mg capsule,delayed release(DR/EC) 20 mg PO DAILY Rx Instructions: take 1 capsule by mouth once daily fluoxetine 20 mg capsule 20 mg PO DAILY Rx Instructions: take 1 capsule by mouth once daily Discontinued neomycin 500 mg tablet 500 mg PO .COMPLEX Qty: 6 0RF Rx Instructions: Take two (2) 500 mg tablets PO at 1300, 1500, 2300 metronidazole 500 mg tablet 500 mg PO .COMPLEX Qty: 6 0RF Rx Instructions: 500 mg PO Take 2 (two) tablets at 1300, 1500, 2300 Referrals / Follow Up: Shawanda Shields MD [Primary Care Provider] - Disposition Disposition (needs filled in before D/C Order can be placed): Home, Self Care
[2023-06-15] MEDS: Magnesium 1 GM over 15 mins IV (06:29)
[2023-06-15] MEDS: Lactated Ringers 1,000 ML 15 ML IV (06:32)
[2023-06-15] MEDS: Gabapentin 600 MG Tablet PO (06:36)
[2023-06-15] MEDS: Acetaminophen 500 MG Tablet 1000 MG PO ×3 (06:36→22:46)
[2023-06-15 06:58] LABS: Bedside Glucose 126 mg/dL (74-106)
[2023-06-15] MEDS: 0.9% Normal Saline (Pres. free 10 ML Vial (07:03)
--- NOTE | 2023-06-15 07:30 | LIVB_PTH ---
PATIENT: FLORENTIN HURTADOJANUARY HERMAN LOC: MS3 U#:[id number] AGE/SX: 52/F ROOM: [facility] [place] RE06/15/[address]: Dr. Fernando Waddell MD : 1970 BED: 1 DIS: 06/17/2023 SPEC #: [id number] RECD: 06/15/23 14:13 STATUS: TEJINDER CREWS #: [id number] MONICA: 06/15/23 07:[address]: Fernando Waddell DEPT: SURGICAL PATHOLOGY RECD BY: Debbi Tsai ENTERED: 06/16/23 10:09 SP TYPE: LIVER BX OTHR DR: Dr. Shawanda Shields MD Tissues: A - Liver, NOS B - HERNIA C - Gallbladder, NOS D - Colon Donuts E - Colon Donuts F - Soft tissues of abdomen Procedures: PAS with Diastase (control) Trichrome (control) Special Stain Group II PAS Stain (control) Surgery Specimen Level III Surgery Specimen Level IV Surgery Specimen Level V Retic (control) Iron Stain (control) HEADER OPERATION: ERAS, open colostomy take down, laparoscopic cholecystectomy PRE-OP DIAGNOSIS: Ventral hernia, status post Kira procedure, history of open sigmoidectomy, gallstones TISSUE SUBMITTED: A - Liver biopsy, B - Hernia sac and contents, C - Gallbladder, D - Distal rectal donut, E - Proximal sigmoid donut, F - Pericolonic fat and colostomy MICROSCOPIC DIAGNOSIS A. Liver, CT-guided core biopsy: Macrovesicular steatosis. No evidence of cirrhosis. See comment. B. Hernia sac and contents, excision: Minimal fibrosis. C. Gallbladder, cholecystectomy: Chronic cholecystitis and cholelithiasis. D. Distal rectal donut, excision: No pathologic change. E. Proximal sigmoid donut, excision: No pathologic change. F. Pericolic fat and colostomy: Squamocolumnar junctional tissue with mild chronic inflammation, focal minimal ulceration consistent with colostomy takedown. AM:justyn 06/17/2023 COMMENT A. Iron stain does not reveal accumulation of iron in hepatocytes. PAS and PASD stains do not reveal accumulation of abnormal proteins. Reticulin stain reveals a normal hepatic architecture. Trichrome stain reveals select expansion of septa without evidence of bridging or cirrhosis. All matched controls are appropriate. MICROSCOPIC DESCRIPTION Slides are reviewed. GROSS DESCRIPTION A - Received in fixative is one container labeled with the patient's name and designated liver biopsy. The specimen consists of an elongated piece of waller soft tissue measuring 1.0 cm in length and 0.1 cm in diameter. The specimen is totally submitted in one cassette. B - Received in fixative is one container labeled with the patient's name and designated hernia sac and contents. The specimen consists of three variable sized pieces of yellow adipose tissue measuring in aggregate 6.0 x 3.5 x 1.0 cm. No mass lesion is identified. Tobacco Warehouse Agent sections are submitted in one cassette. C - Received is one container labeled with the patient's name and designated gallbladder. The specimen consists of a gallbladder measuring 7.0 cm in length and up to 3.0 cm in diameter. The external surface is pink-waller, smooth and glistening for the most part. Focally it is granular, hemorrhagic and contains cautery artifact. The gallbladder contains green-yellow mucoid bile and one ovoid, greenish-brown stone measuring 2.0 cm in greatest dimension. The mucosa is bile-stained and without any mass lesions. The gallbladder wall measures up to 0.2 cm in thickness. Tobacco Warehouse Agent sections from the gallbladder and the cystic duct are submitted in one cassette. D - Received in fixative is one container labeled with the patient's name and designated distal rectal donut. The specimen consists of a colonic donut measuring 3.5 x 1.0 x 1.0 cm. Tobacco Warehouse Agent sections are submitted in one cassette. E - Received in fixative is one container labeled with the patient's name and designated proximal sigmoid donut. The specimen consists of a colonic donut measuring 1.6 x 1.5 x 1.0 cm. Multiple sutures are noted. Tobacco Warehouse Agent sections are submitted in one cassette. F - Received in fixative is one container labeled with the patient's name and designated pericolonic fat. The specimen consists of a colostomy specimen with a piece of skin attached at one end. This piece measures 5.0 x 2.5 x 2.2 cm. Peripheral rim of skin measures 0.2 cm in width. Also present in the container is a detached piece of adipose tissue measuring 7.0 x 3.5 x 1.0 cm. Sections do not reveal any mass lesion. Tobacco Warehouse Agent sections are submitted in three cassettes as follows: 1 - colostomy piece, 2?& 3 - adipose tissue. / ALLISON:justyn 06/16/2023 TC:2 CPT: 57458 x4, 96715, 81037, 29540 x5
[2023-06-15] MEDS: Cefotetan 2 GM in 0.9% NS 100 ML IV (07:42)
[2023-06-15] MEDS: Lubricating Jelly 60 GM Tube 30 GM (08:06)
[2023-06-15] MEDS: Bupivacaine 0.25% 30 ML Vial (10:17)
[2023-06-15] MEDS: BUPIVACAINE LIPOSOME/PF 20 ML VIAL OPERA.SITE (10:18)
--- NOTE | 2023-06-15 12:41 | OP.PCM_ITS ---
Report of Operation Date of Procedure: 06/15/23 Pre-Operative Diagnosis: Chronic cholecystitis cholelithiasis, steatosis, prese nce of left lower quadrant end sigmoid colostomy, multiple ventral incisional hernias, left lower quadrant parastomal hernia Post-Operative Diagnosis: Same plus multiple intra-abdominal adhesions Surgery/Procedure Performed:: Laparoscopic cholecystectomy with laparoscopic Alvaro-Cut right lobe needle core biopsy. Laparoscopic bilateral transabdominal p sarina block. Laparoscopic takedown and sigmoid colostomy with low anterior anastomosis. Laparoscopic ventral incisional herniorrhaphy. Direct repair left lower quadrant parastomal hernia Description of Surgical Findings:: Timeout informed consent was obtained. 52-year-old female was taken to the operating placed upon the table underwent general anesthesia she was placed in low lithotomy position in a beanbag. Cefotetan 2 g were given intravenously. Jain catheter was placed. An OG tube was placed. The abdomen perineum was sterilely prepped and draped. At the superior aspect of her ventral midline incision made an incision. We used Exparel mixed with Marcaine and saline as our tap block and local block. Sharp dissection carried down to the incisional hernia at the apex of the incision direct access was gained the peritoneum and the sound catheter was inserted the abdomen was insufflated with CO2 to a pressure of 10 mmHg pressure. 5 mm trocars were placed in the right lateral upper abdomen right mid costal abdomen in the epigastric area. Where needed the omental adhesions were sharply transected transected with electrocautery hook dissection and transected with scissor dissection. The patient was placed in reverse Trendelenburg position the gallbladder was inspected dissected free the critical view was achieved with the cystic duct and cystic artery nicely identified. 2 Hem-o-kaylin clips were placed proximally 1 distally on the cystic duct and cystic artery. The gallbladder was then dissected free from the liver bed. Small amount of bleeding was controlled electrocautery and placement of fibular. The gallbladder was placed in a retrieval bag. There was separate small stab incision Dr. Melchor and a Alvaro-Cut needle was inserted and a Alvaro-Cut needle core biopsies obtained the right lobe of the liver as it had a yellowish appearance to the liver consistent with steatosis and the patient preoperatively had abnormal liver function test. A laparoscopic transabdominal plane block was performed with the Exparel Marcaine saline mixture. Then patient was placed in Trendelenburg position. Additional port was placed in the right lower quadrant and extensive adhesions in the anterior abdominal wall of omentum were dissected free the omentum was dissected free from multiple incisional hernias. Small bowel had already been mostly freed from the suprapubic hernia. Then lysed small bowel adhesions to free them from the pelvis. Was able then to visualize the uterus freed the ureters from its adherence to the rectum. Did not see a marking suture or distinct staple line of the rectum. This point then allowed the abdomen to deflate it a circular ellipse around the stoma used electrocautery and sharp dissection to free the stoma from its adherence used #1 Vicryl in simple fashion to partially reapproximate the hernia at the stoma site and then placed Hurt catheter. Now it became apparent that was unable to complete the operation laparoscopically. The anus was gently dilated having bowel freed the uterus from the colon was able to exit a 33 mm stapler through the anterior wall of the rectum. I had previously transected the sigmoid to rid the skin adherence and then placed a whip suture 2-0 Prolene inserted at the 33 mm and full. That was stabbed with Betadine dropped back within the abdomen the 2 were mated and secured. Rigid sigmoidoscopy was performed demonstrating absolutely no air leak. The small bowel was pulled back from the sigmoid window ensuring all the small bowel was anteriorly. Pelvis was irrigated aspirated free of fluid. Greater omentum was placed overlying. Now the ventral incisional hernia in the midline was closed with a running #1 strata fix suture. This was done lapar oscopically. Small defect remained superiorly but it is anticipated that a repeat operation will be performed to treat all hernia sites. The wounds were closed with interrupted and running subicular 4-0 Monocryl. The stoma site was closed with interrupted subdermal 4-0 Monocryl leaving the central portion open and 1/4 inch [place] drain was placed and secured there with a safety pin and 3-0 nylon sutures. That site was covered with absorbent gauze. The other sites was covered with Telfa OpSite's. Sponge and instrument and needle counts were reported to the surgeon to be correct. Sponge and instrument and needle counts were reported to surgically correct. Specimens included the gallbladder and the donuts from the anastomosis and a small fragment of skin and colon and fibrofatty tissue that was adherent to the colon. In addition a core biopsy of the liver. Blood loss 100 cc. Drains Brook[place] drain was left at the stomal site. Patient tolerated the procedure well. She presented somewhat dehydrated and she did receive a total of 4 L of fluid during the procedure in order to keep her blood pressure elevated and to achieve some type of urine output. She was taken to the recovery room in satisfactory condition. Fernando Waddell M.D., F.A.C.S. Surgeon: Fernando Waddell gear generator set up operator: Joel Hirsch gear generator set up operator: Barbie Thompson Type of Anesthesia: General and Local Anesthesiologist: Coty Fabian
[2023-06-15] MEDS: Lactated Ringers 1,000 ML 40 ML IV (13:40)
[2023-06-15 13:44] LABS: Bedside Glucose 149 mg/dL (74-106)
--- NOTE | 2023-06-15 14:57 | EKG12_ITS ---
Test Reason : POST OP CHEST PREASU Blood Pressure : / mmHG Vent. Rate : 078 BPM Atrial Rate : 078 BPM P-R Int : 166 ms QRS Dur : 080 ms QT Int : 436 ms P-R-T Axes : 057 033 061 degrees QTc Int : 497 ms Normal sinus rhythm Nonspecific T wave abnormality Abnormal ECG When compared with ECG of 14-JUN-2023 13:04, MANUAL COMPARISON REQUIRED, DATA IS UNCONFIRMED Confirmed by KARISHMA CEDENO, JANAK ([id number]), story editor CUCO ALCANTARA ([id number]) on 07/19/2023 2:20:34 PM Referred By: Fernando Waddell Confirmed By:JANAK SCHWARZ MD
[2023-06-15] MEDS: Lactated Ringers 1,000 ML 100 ML IV (16:08)
[2023-06-15] MEDS: oxyCODONE 5 MG Tablet PO (16:37)
--- NOTE | 2023-06-15 17:16 | PCM.PN.SRG ---
Subjective Subjective Patient comfortable. Taking some water. Otherwise doing well Objective Data Objective Data Vital Signs: Vital Signs Temp Pulse Resp BP Pulse Ox O2 Del Method O2 Flow Rate 97.5 F L 78 18 140/80 H 96 Room Air 4 06/15/23 16:02 06/15/23 16:02 06/15/23 16:02 06/15/23 16:02 06/15/23 16:02 06/15/23 16:10 06/15/23 15:00 FiO2 38 06/15/23 14:48 Oxygen Flow Rate (L/min) 4 Oxygen Delivery Method Room Air Weight: 176 lb 5.917 oz Body Mass Index (BMI) 30.2 Intake & Output: Intake and Output for Last 24 Hours 06/13/23 06/14/23 06/15/23 23:59 23:59 23:59 Intake Total 3452.92 / 3452.92 Output Total 445 / 445 Balance 3007.92 / 3007.92 Lab / Micro Data 06/14/23 13:14 06/14/23 13:14 Labs: Laboratory Results - last 24 hr 06/15/23 06:20: POC Glucose 126 H 06/15/23 13:25: POC Glucose 149 H Assessment & Plan Assessment/Plan (1) Status post Kira procedure: PLAN: Patient's urine output has responded to fluid resuscitation. We will reduce the rate. Patient is well aware that I anticipate mobilization early. She has factor V Leiden placing her at increased risk. We will initiate Lovenox therapy tomorrow due to the amount of dissection that was performed today. Progress is felt to be good. Fernando Waddell M.D., F.A.C.S.
[2023-06-15] MEDS: Ketorolac 15 MG/ML Vial IV ×2 (18:18→22:46)
[2023-06-15] MEDS: 0.9% Saline Lock 10 ML Syringe IV (18:18)
[2023-06-15] MEDS: Docusate Sodium 100 MG Capsule PO (22:45)
[2023-06-15] MEDS: Ensure Plus High Protein 120 ML LIQUID PO (22:46)
[2023-06-16] VITALS (7 sets, daily range): BP systolic 109–131; BP diastolic 67–82; PULSE 70–87; RESP 16–18; TEMP 36.7–37.2; O2SAT 96–97
[2023-06-16] MEDS: Ketorolac 15 MG/ML Vial IV ×2 (04:26→13:43)
[2023-06-16] MEDS: Acetaminophen 500 MG Tablet 1000 MG PO ×4 (04:27→23:31)
--- NOTE | 2023-06-16 06:15 | PCM.PN.SRG ---
Subjective Subjective Certainly feeling more sore than yesterday immediately postoperatively. She was able to get out of bed to a chair in the room. She felt that the Jain catheter was limiting her. No nausea. No flatus. Objective Data Objective Data Vital Signs: Vital Signs Temp Pulse Resp BP Pulse Ox O2 Del Method O2 Flow Rate 98.2 F 70 18 131/82 H 97 Room Air 4 06/16/23 04:00 06/16/23 04:00 06/16/23 04:00 06/16/23 04:00 06/16/23 04:00 06/16/23 04:00 06/15/23 15:00 FiO2 38 06/15/23 14:48 Oxygen Flow Rate (L/min) 4 Oxygen Delivery Method Room Air Weight: 176 lb 5.917 oz Body Mass Index (BMI) 30.2 Intake & Output: Intake and Output for Last 24 Hours 06/14/23 06/15/23 06/16/23 23:59 23:59 23:59 Intake Total 3502.92 / 4302.92 800 / 800 Output Total 895 / 2945 2049 / 2049 Balance 2607.92 / 1357.92 -1250 / -1250 Lab / Micro Data 06/14/23 13:14 06/14/23 13:14 Labs: Laboratory Results - last 24 hr 06/15/23 06:20: POC Glucose 126 H 06/15/23 13:25: POC Glucose 149 H Physical Exam Resp normal respiratory effort and clear to auscultation bilaterally GI GI Narrative: Soft, slightly distended, infrequent bowel sounds, dressings are essentially dry Assessment & Plan Assessment/Plan (1) Gallstones: (2) Ventral hernia: QUALIFIERS: Obstruction and gangrene presence: without obstruction or gangrene Qualified Code(s): K43.9 - Ventral hernia without obstruction or gangrene (3) Status post Kira procedure: PLAN: Plan For the amount of surgery the patient had she really is doing remarkably well. Urine output has increased exponentially likely secondary to her increased blood pressure versus what she was running intraoperatively. We will stop the IV fluids and remove the Jain catheter encourage ambulation in the halls. Lovenox will be initiated as DVT prophylaxis in addition to her SCUDs today. I will prescribe for her K-pad to assist with her abdominal discomfort. We will hold at clear liquids for the moment and reassess later today. Progress at this point is quite solid. Fernando Waddell M.D., F.A.C.S.
[2023-06-16] MEDS: oxyCODONE 5 MG Tablet PO ×3 (06:28→16:59)
[2023-06-16 06:34] LABS: Hematocrit 37.9 % (37-47); Hemoglobin 12.1 g/dL (12.0-15.0); Mean Corp Hgb Conc 31.9 g/dL (32-36); Mean Corpuscular Hgb 26.3 pg (27.0-32.0); Mean Corpuscular Volume 82.4 fL (81-99); Mean Platelet Vol. 9.3 fl (6.2-12.0); Platelet Count 247 K/mm3 (150-450); RBC Distribution Width CV 14.2 % (11.6-14.6); RBC Distribution Width SD 42.1 fl (35.1-43.9); White Blood Count 9.4 K/mm3 (4.4-11.0)
[2023-06-16 07:07] LABS: Anion Gap 3 (5-15); BUN 12 mg/dL (7-18); BUN/Creat Ratio 12.7 RATIO (10-20); Calcium,Total 8.6 mg/dL (8.5-10.1); Chloride 108 mmol/L (98-107); Creatinine, Serum 0.95 mg/dL (0.55-1.02); EST Glomerular Filtration Rate 66 mL/min (>60); Est Glom Filt Rate - Afr Amer 80 mL/min (>60); Estimated Creatinine Clearance 61.18 ml/min; Glucose 106 mg/dL (74-106); Sodium Level 140 mmol/L (136-145)
[2023-06-16] MEDS: Enoxaparin 40 MG/0.4 ML Syringe SC (10:56)
[2023-06-16] MEDS: Ensure Plus High Protein 120 ML LIQUID PO (10:57)
[2023-06-16] MEDS: FLUoxetine 20 MG Capsule PO (10:57)
[2023-06-16] MEDS: Pantoprazole Sodium 20 MG Tablet PO (10:57)
[2023-06-16] MEDS: Docusate Sodium 100 MG Capsule PO ×2 (10:57→21:28)
--- NOTE | 2023-06-16 14:57 | CASEMGMT ---
KAVON BRADSHAW Assessment: Face to Face with pt for initial transition planning/care coordination assessment. RN AUGUSTINE introduced self and role at [facility], pt voices understanding and consents to assessment. Pt is A/O x4 and answers all questions appropriately at this time. Pt sitting up in chair in no distress with friend and at bedside. Pt agreeable to assessment with visitors present. Care providers, pharmacy, and demographics verified/updated. Admitting Dx: open colostomy takedown, lap donovan w/grams PCP:Cornelius Specialists:Nadira OR; Friend, GI Preferred Pharmacy: [facility] Retail Insurance: [employer] Prescription Benefit: yes LNOK: Fernando Gamboa, Living Arrangements: Pt lives with and adult son in a single story home with 2 steps to enter. Pt reports she is I in ADL's and denies concerns at home. Transportation: Pt drives self and denies concerns with transportation. Pt or friend to transport pt until she can drive again. DME/HHC/SNF: Pt denies having any DME in the home, has had [facility] HHC in the past and no SNF stays. Pt states no concerns with going home at time of dc. Pt states no further concerns/needs. CM to follow. Advised pt to ask CM if any further question/concerns/needs arise, voices understanding. Pt Goal: Home Plan: Home
--- NOTE | 2023-06-16 15:07 | PCM.PN.BLA ---
Physical Exam GI GI Narrative: Abdomen- incisions c/d/i. Previous stoma site incision with donnell drain in place. Area was cleansed with betadine. Donnell drain was advanced. Drain was secured with a safety pin. sponge drain was applied and gauze dressing was applied and secured with tape.
[2023-06-16] MEDS: Ketorolac 30 MG/ML Syringe 15 MG IV ×2 (17:01→23:32)
[2023-06-16] MEDS: diazePAM 5 MG Tablet PO (21:27)
[2023-06-17] MEDS: oxyCODONE 5 MG Tablet PO ×2 (04:51→10:04)
[2023-06-17] MEDS: Acetaminophen 500 MG Tablet 1000 MG PO (04:51)
[2023-06-17 05:00] VITALS: BP 128/76; PULSE 74; RESP 18; TEMP 36.8; O2SAT 95
--- NOTE | 2023-06-17 05:23 | NURSING ---
Pt OOB ambulating throughout shift. Tolerated well. Passing gas - no blood noted this shift. light amount of old dry drainage noted on donnell dressing. SCD's maintained and pt encouraged to use incentive spirometer as a light cough was noted during early AM shift assessment. Pt denies SOB.
--- NOTE | 2023-06-17 06:20 | PN.SURG_ITS ---
Subjective Subjective Patient has abdominal soreness. She is passing copious gas. No stools. No nausea. She is tolerating a diet. Objective Data Objective Data Vital Signs: Vital Signs Temp Pulse Resp BP Pulse Ox O2 Del Method O2 Flow Rate 98.2 F 74 18 128/76 H 95 Room Air 4 06/17/23 05:00 06/17/23 05:00 06/17/23 05:00 06/17/23 05:00 06/17/23 05:00 06/17/23 05:00 06/15/23 15:00 FiO2 38 06/15/23 14:48 Oxygen Flow Rate (L/min) 4 Oxygen Delivery Method Room Air Weight: 176 lb 5.917 oz Body Mass Index (BMI) 30.2 Intake & Output: Intake and Output for Last 24 Hours 06/15/23 06/16/23 06/17/23 23:59 23:59 23:59 Intake Total 3502.92 / 4302.92 3180 / 3180 Output Total 895 / 2945 3150 / 3150 Balance 2607.92 / 1357.92 Lab / Micro Data 06/16/23 06:22 06/16/23 06:22 Labs: Laboratory Results - last 24 hr 06/16/23 06:22: WBC 9.4, RBC 4.60, Hgb 12.1, Hct 37.9, MCV 82.4, MCH 26.3 L, MCHC 31.9 L, RDW Std Deviation 42.1, RDW Coeff of Shelton 14.2, Plt Count 247, MPV 9.3, Sodium 140, Potassium 4.0, Chloride 108 H, Carbon Dioxide 29.0, Anion Gap 3 L, BUN 12, Creatinine 0.95, Estim Creat Clear Calc 61.18, Est GFR (MDRD) Af Amer 80, Est GFR (MDRD) Non-Af 66, BUN/Creatinine Ratio 12.7, Glucose 106, Calcium 8.6 Physical Exam Resp normal respiratory effort GI GI Narrative: Soft, slightly distended, very active bowel sounds, [place] drain site minimal drainage. Extremity Extremity Narrative: Calves are supple nontender no swelling Assessment & Plan Assessment/Plan (1) Gallstones: (2) Ventral hernia: QUALIFIERS: Obstruction and gangrene presence: without obstruction or gangrene Qualified Code(s): K43.9 - Ventral hernia without obstruction or gangrene (3) History of open sigmoidectomy: PLAN: Plan Patient is ready for discharge. I advanced her [place] and redressed her dressing today. She has instructions regarding cleansing that over the weekend. We will provide her with some home-going pain medication and 1 weeks worth of Lovenox injections. Anticipated follow-up office appointment already on June 20, 2023 in particular to reevaluate the Delbarton site left lower quadrant. Pathology is pending her progress is good Fernando Waddell M.D., F.A.C.S.
--- NOTE | 2023-06-17 06:33 | PCM.DC.SUM ---
Providers Date of Admission: 06/15/23 Primary Care Physician: Dr. Shawanda Shields MD Reason For Visit: ERAS, Open Colostomy Take Down, lap donovan w/grams, Diagnosis Discharge Diagnosis (1) Gallstones: Status: Acute Code(s): K80.20 - Calculus of gallbladder without cholecystitis without obstruction (2) Ventral hernia: Status: Acute Code(s): K43.9 - Ventral hernia without obstruction or gangrene Qualifiers: Obstruction and gangrene presence: without obstruction or gangrene Qualified Code(s): K43.9 - Ventral hernia without obstruction or gangrene (3) History of open sigmoidectomy: Status: Acute Code(s): Z98.890 - Other specified postprocedural states; Z90.49 - Acquired absence of other specified parts of digestive tract (4) Steatosis of liver: Status: Acute Code(s): K76.0 - Fatty (change of) liver, not elsewhere classified (5) Intra-abdominal adhesions: Status: Acute Code(s): K66.0 - Peritoneal adhesions (postprocedural) (postinfection) (6) Status post Kira procedure: Status: Acute Code(s): Z93.3 - Colostomy status (7) Heterozygous factor V Leiden mutation: Status: Chronic Code(s): D68.51 - Activated protein C resistance Plan Patient is ready for discharge. I advanced her [place] and redressed her dressing today. She has instructions regarding cleansing that over the weekend. We will provide her with some home-going pain medication and 1 weeks worth of Lovenox injections. Anticipated follow-up office appointment already on June 20, 2023 in particular to reevaluate the [place] site left lower quadrant. Pathology is pending her progress is good Fernando Waddell M.D., F.A.C.S. Medications at Discharge Home Medications fluoxetine 20 mg capsule 20 mg PO DAILY ANXIETY 06/06/23 omeprazole 20 mg capsule,delayed release 20 mg PO DAILY GERD 06/06/23 enoxaparin 40 mg/0.4 mL subcutaneous syringe 40 mg (0.4 mL) subcut DAILY #4 mL 06/17/23 hydrocodone-acetaminophen 5-325mg 5mg-325mg 1 tab PO Q6H PRN pain 3 days #10 tabs 06/17/23 hydrocodone-acetaminophen 5-325mg 5mg-325mg 1 tab PO Q6H PRN pain 3 days #10 tabs 06/17/23 Hospital Course Summary of Care Provided Hospital Course: The patient was admitted on June 15 was taken to the operating room underwent a laparoscopic cholecystectomy laparoscopic Alvaro-Cut needle core biopsy laparoscopic bilateral transabdominal plane block then a laparoscopic takedown of her end sigmoid colostomy with a primary low anterior anastomosis. She additionally had a suture repair of complex midline ventral incisional hernia. Her postoperative course was very smooth on an enhanced recovery program and by June 17, 2023 she was passing flatus tolerating a diet. Richy drain was left in the left lower quadrant stoma site that was partially closed and it was advanced. She is scheduled for office follow-up on June 20 for ongoing surgical follow-up and ongoing inspection of her [place] drain. She will be discharged on Lovenox therapy 40 mg subcu daily for 1 weeks course because of her history of factor V Leiden deficiency. It is anticipated that she will require a staged laparoscopic ventral incisional hernia repair at approximately 3 months. Pathology is pending at this time. Weight / BMI Weight Weight: 176 lb 5.917 oz Body Mass Index (BMI) 30.2 ABG / Lab / Microbiology Data 06/16/23 06:22 06/16/23 06:22 Laboratory: Laboratory Results - last 24 hr 06/16/23 06:22: WBC 9.4, RBC 4.60, Hgb 12.1, Hct 37.9, MCV 82.4, MCH 26.3 L, MCHC 31.9 L, RDW Std Deviation 42.1, RDW Coeff of Shelton 14.2, Plt Count 247, MPV 9.3, Sodium 140, Potassium 4.0, Chloride 108 H, Carbon Dioxide 29.0, Anion Gap 3 L, BUN 12, Creatinine 0.95, Estim Creat Clear Calc 61.18, Est GFR (MDRD) Af Amer 80, Est GFR (MDRD) Non-Af 66, BUN/Creatinine Ratio 12.7, Glucose 106, Calcium 8.6 D/C Instructions Discharge Diet: Light diet - advance as tolerated (if you have questions about your diet instructions, please talk to you doctor.) May shower in (days): 1 Call your doctor if your incision/area has: Continuous Slow Oozing, Sudden Increased Bleeding, Increased Pain/ Swelling, Increased Redness and Foul Smelling Discharge Call your doctor if you observe: Fever of 101 or Higher Suture Line Care: Avoid Pulling/Pushing and Avoid Pinching/Bending Additional Dressing/Incision Instructions: Change or remove dressing in 4 days. Leave steri-strips in place for 1 week. Please Follow Up With: Fernando Waddell MD When: Call [phone] to make an appointment to be seen in about 10 days. Meaningful Use Info Meaningful Use Diagnoses (Choose all that apply): None applicable Discharge Plan Admission Admit Date/Time: 06/15/23 12:50 Primary Reason for Your Visit: Takedown colostomy/Chronic cholecystitis cholelithias/hernia Attending Provider: Fernando Waddell Primary Care Provider: Shawanda Shields Discharge Orders/Prescriptions Prescriptions: New hydrocodone-acetaminophen 5-325 mg tablet 1 tab PO Q6H PRN (Reason: pain) 3 Days Qty: 10 0RF enoxaparin 40 mg/0.4 mL syringe 40 mg subcut DAILY Qty: 4 0RF hydrocodone-acetaminophen 5-325 mg tablet 1 tab PO Q6H PRN (Reason: pain) 3 Days Qty: 10 0RF Continued omeprazole 20 mg capsule,delayed release(DR/EC) 20 mg PO DAILY Rx Instructions: take 1 capsule by mouth once daily fluoxetine 20 mg capsule 20 mg PO DAILY Rx Instructions: take 1 capsule by mouth once daily Discontinued neomycin 500 mg tablet 500 mg PO .COMPLEX Qty: 6 0RF Rx Instructions: Take two (2) 500 mg tablets PO at 1300, 1500, 2300 metronidazole 500 mg tablet 500 mg PO .COMPLEX Qty: 6 0RF Rx Instructions: 500 mg PO Take 2 (two) tablets at 1300, 1500, 2300 Referrals / Follow Up: Shawanda Shields MD [Primary Care Provider] - Disposition Disposition (needs filled in before D/C Order can be placed): Home, Self Care
[2023-06-17 07:51] VITALS: O2SAT 93
[2023-06-17] MEDS: Docusate Sodium 100 MG Capsule PO (09:25)
[2023-06-17] MEDS: Enoxaparin 40 MG/0.4 ML Syringe SC (09:26)
[2023-06-17] MEDS: Pantoprazole Sodium 20 MG Tablet PO (09:26)
[2023-06-17] MEDS: FLUoxetine 20 MG Capsule PO (09:26)
[2023-06-17] MEDS: Ensure Plus High Protein 120 ML LIQUID PO (09:26)
--- NOTE | 2023-06-17 09:46 | CASEMGMT ---
KAVON CM into pt room, pt states her just gave her lovenox injection and she is comfortable with him doing it at home. Pt denies any further homegoing needs.
[2023-06-17 10:05] VITALS: BP 121/75; PULSE 78; RESP 18; TEMP 37; O2SAT 99
== END 2023-06-17 10:11 | disposition home or self-care (01) | DRG 330 ==
LOC: MS3 13:32
PROVIDERS: Anesthesiology; Admitting Provider Surgery; PCP Internal Medicine; Referring Provider Surgery; Visit Provider Surgery
PROC: 0DBN4ZZ Excision of Sigmoid Colon, Percutaneous Endoscopic Approach (ICD-10-PCS; principal; 2023-06-15 07:10)
PROC: 0DBE0ZZ Excision of Large Intestine, Open Approach (ICD-10-PCS; CPT 44620; 2023-06-15 07:10)
PROC: 0WQF4ZZ Repair Abdominal Wall, Percutaneous Endoscopic Approach (ICD-10-PCS; 2023-06-15 07:10)
DX: Z43.3 Encounter for attention to colostomy (principal); K80.10 Calculus of gallbladder with chronic cholecystitis without obstruction; D68.51 Activated protein C resistance; K76.0 Fatty (change of) liver, not elsewhere classified; K43.9 Ventral hernia without obstruction or gangrene; K21.9 Gastro-esophageal reflux disease without esophagitis; E86.0 Dehydration; Z79.899 Other long term (current) drug therapy; Z87.891 Personal history of nicotine dependence; Z90.49 Acquired absence of other specified parts of digestive tract
CPT/HCPCS: 36415; 80048; 82962; 83735; 85027; 88302; 88304; 88305; 88307; 88313; 93005; 94668; J7120; A4216; J2405; J3475; J3490

== ENCOUNTER → 2023-06-23 | Outpatient (CLI) | payer OTHER, SELFPAY ==
[2023-06-23 09:25] LABS: Absolute Lymphocyte Count 2.17 X10^3/uL (0.83-4.51); Absolute Neutrophil Count 7.1 X10^3/uL (2.0-7.7); Basophil# 0.05 X10^3/uL; Basophil% 0.5 % (0-1); Eosinophil# 0.13 X10^3/uL; Eosinophils% 1.3 % (0-5); Hematocrit 40.2 % (37-47); Hemoglobin 12.8 g/dL (12.0-15.0); Lymphocyte # 2.17 X10^3/ul (0.83-4.51); Lymphocyte % 21.4 % (19-41); Mean Corp Hgb Conc 31.8 g/dL (32-36); Mean Corpuscular Hgb 25.8 pg (27.0-32.0); Mean Corpuscular Volume 80.9 fL (81-99); Mean Platelet Vol. 9.4 fl (6.2-12.0); Monocyte# 0.68 X10^3/uL; Monocyte% 6.7 % (0-10); NRBC Flagged by Analyzer 0 % (0-5); Neutrophil # 7.07 X10^3/uL (2.7-7.7); Neutrophil % 69.6 % (47-70); Platelet Count 415 K/mm3 (150-450); RBC Distribution Width CV 14.3 % (11.6-14.6); RBC Distribution Width SD 41.7 fl (35.1-43.9); Red Blood Count 4.97 M/mm3 (4.2-5.4); White Blood Count 10.2 K/mm3 (4.4-11.0)
== END | disposition home or self-care (01) ==
PROVIDERS: PCP Internal Medicine; Referring Provider Physician Assistant; Visit Provider Physician Assistant
DX: R61 Generalized hyperhidrosis (principal)
CPT/HCPCS: 36415; 85025

== ENCOUNTER 2023-09-19 16:09 | Observation (INO) | payer OTHER, SELFPAY ==
[2023-09-15 17:09] LABS: Hematocrit 40.8 % (37-47); Hemoglobin 13.1 g/dL (12.0-15.0); Mean Corp Hgb Conc 32.1 g/dL (32-36); Mean Corpuscular Hgb 25.1 pg (27.0-32.0); Mean Corpuscular Volume 78.2 fL (81-99); Mean Platelet Vol. 9.8 fl (6.2-12.0); Platelet Count 286 K/mm3 (150-450); RBC Distribution Width CV 14.6 % (11.6-14.6); Red Blood Count 5.22 M/mm3 (4.2-5.4); White Blood Count 7.7 K/mm3 (4.4-11.0)
[2023-09-15 17:23] LABS: Anion Gap 5 (5-15); BUN 19 mg/dL (7-18); BUN/Creat Ratio 21.6 RATIO (10-20); Calcium,Total 8.8 mg/dL (8.5-10.1); Chloride 107 mmol/L (98-107); Creatinine, Serum 0.88 mg/dL (0.55-1.02); EST Glomerular Filtration Rate 72 mL/min (>60); Est Glom Filt Rate - Afr Amer 87 mL/min (>60); Glucose 95 mg/dL (74-106); Magnesium 2.4 mg/dL (1.6-2.6); Potassium 3.8 mmol/L (3.5-5.1); Sodium Level 139 mmol/L (136-145)
[2023-09-19] VITALS (16 sets, daily range): BP systolic 94–143; BP diastolic 60–92; PULSE 59–80; RESP 12–18; TEMP 36.2–36.6; O2SAT 92–100; BMI 30.3
[2023-09-19] MEDS: Magnesium 1 GM over 15 mins IV (09:14)
[2023-09-19] MEDS: Lactated Ringers 1,000 ML 40 ML IV ×2 (09:14→21:12)
[2023-09-19] MEDS: Gabapentin 600 MG Tablet PO (09:15)
[2023-09-19] MEDS: Acetaminophen 500 MG Tablet 1000 MG PO ×3 (09:15→23:18)
[2023-09-19 09:38] LABS: Bedside Glucose 102 mg/dL (74-106)
--- NOTE | 2023-09-19 10:04 | PCM.HP.BLA ---
History and Physical Date of Admission: 09/19/23 Chief Complaint: f/u hernia Diamond Setter Required: No Is patient in pain?: No Allergies Opioids - Morphine Analogues Allergy (Severe, Verified 08/24/23 07:25) passed out Medications fluoxetine 20 mg capsule 20 mg PO DAILY ANXIETY 06/06/23 [History Confirmed 08/24/23] omeprazole 20 mg capsule,delayed release 20 mg PO DAILY GERD 06/06/23 [History Confirmed 08/24/23] FORMERLY [facility], [facility]–1983 Medical History Abnormal Pap smear of cervix Anal or rectal pain Arthritis Colostomy in place COVID-19 vaccine series completed Dermatitis Former smoker Frequent headaches Gastric reflux Heterozygous factor V Leiden mutation History of diverticulitis History of hiatal hernia History of stress test Lung nodule seen on imaging study Mood swings Multiple joint pain Osteoarthritis of carpometacarpal joint of right thumb Pain of right thumb Shortness of breath on exertion Vapes nicotine containing substance Wears glasses Surgical History History of colonoscopy History of open sigmoidectomy Hx of tubal ligation S/P laparoscopic cholecystectomy S/P LEEP Status post colostomy takedown Status post Kira procedure Family History Mother ArthritisFather Heart disease Hypertension Hypercholesteremia Myocardial infarction Blood clot in vein DiabetesBrother Heart disease Social History Smoking Status: Former smoker quit date: 10/10/18 Tobacco: How many years used: 25 how long ago did patient quit smoking: couple packs per week x 25 years second hand exposure: No alcohol intake: current alcohol intake frequency: a few times a month Alcohol type: wine substance use type: does not use caffeine: Yes what type of physical activity do you participate in: walking frequency: 1-2 times per week duration: 30-45 minutes/day seatbelt use: always do you feel safe at home: Yes additional social history: [employer] at [employer] Patient works at [employer] HPI HPI HPI: 52-year-old female. Because of a perforated colon she had a sigmoid colostomy. She developed ventral incisional hernia and parastomal hernia. On June 15, 2023 took her to the operating room did a laparoscopic cholecystectomy and laparoscopic Alvaro-Cut right lobe liver needle core biopsy as well as a tap block and laparoscopic takedown of sigmoid colostomy with low anterior anastomosis. Performed a ventral incisional herniorrhaphy laparoscopic with suture repair and a direct repair of the left lower quadrant ventral parastomal hernia. Pathology demonstrated macrovesicular steatosis with no evidence cirrhosis of the liver. Chronic cholecystitis cholelithiasis. Hernia sac. Colonic donuts. Pericolonic fat colostomy with mild chronic inflammation consistent with a takedown. It was known at that time that the ventral incisional hernia in particular had significant separation of the midline fascia and that additional support would be required. She returns now to discuss potential for laparoscopic ventral incisional and potentially parastomal hernia reinforcement and repair. Dates that she is doing well. She is completely stopped her cigarettes. No current abdominal pain. She feels like her abdomen is getting softer. ROS General General: No weight change, appetite, fatigue, colon cancer, breast cancer or weakness HEENT HEENT: No difficulty swallowing, eye injury, eye surgery, swollen glands or hoarseness Endo Endocrine: No thyroid disease, diabetes mellitus, thyroid cancer, Hair loss, heat intolerance or cold intolerance Skin Skin: No rash or changing moles Breast Breast: No left breast lump, right breast lump, nipple discharge, breast pain, abnormal mammogram, abnormal US or breast enlargement Musc Musculoskeletal: Yes arthritis; No back problems, rheumatoid arthritis, gout or joint pain Cardio Cardiovascular: No murmur, pacemaker, heart disease, atrial fibrillation, high blood pressure, heart attack, heart stent, palpitations, shortness of breat with exertion or chest pain Psych Psychiatric: No depression, anxiety or hearing voices Resp Respiratory: No shortness of breath, No sleep apnea, No cough, No COPD, No asthma, No emphysema and No wheezing Gastro Gastrointestinal: Yes abdominal pain, No nausea or vomiting, No diarrhea, No constipation, No blood in stool, Yes acid reflux, No hemorrhoids, No ulcers, No gallbladder problem and No black,tarry stools Yash Hematologic: No blood thinners, No blood disorders, No bleeding, No anemia and No blood clots Neuro Neurologic: No system reviewed and no additional complaints, except as documented, No as per HPI, No abnormal gait, No abnormal hearing, No abnormal movements, No abnormal speech, No behavioral changes, No burning sensations, No confusion, No convulsions, No disequilibrium, No dizziness, No localized weakness, No frequent falls, No headache(s), No lack of coordination, No loss of vision, No memory loss, No numbness, No other visual disturbances, No radicular pain, No restless legs, No sensory deficit, No syncope, No tingling, No tremor(s), No weakness and No other Exam Const General: cooperative, healthy appearing, comfortable and no acute distress [facility] Head: normal to inspection Eyes General: appearance normal, both eyes and all related structures Neck Neck: normal visual inspection Resp Effort & Inspection: normal respiratory effort Auscultation: clear to auscultation bilaterally Cardio Rate: regular rate Rhythm: regular rhythm GI Other: Soft, midline incision extending just superior to the umbilicus with a palpable ventral incisional defect at that umbilical level the midline incision extends down toward the pubis. There is a left lower quadrant transverse stomal incision. Musc Cervical Spine: normal cervical lordosis Skin General: no rashes or lesions noted Neuro General: patient alert, patient awake and patient oriented x3 Extrem General: no calf tenderness Psych Appearance: grossly normal Assessment and Plan Assessment and Plan (1) History of colostomy reversal: Status: Acute (2) Steatosis of liver: Status: Acute (3) Elevated factor VIII level: Status: Acute (4) Ventral hernia: Status: Acute Qualifiers: Obstruction and gangrene presence: without obstruction or gangrene Qualified Code(s): K43.9 - Ventral hernia without obstruction or gangrene (5) Abdominal wall hernia at previous stoma site: Status: Acute Plan: Patient with a recurrent ventral incisional hernia as was anticipated at the time of her most recent complex laparoscopic surgery. I recommended the patient a bilateral transabdominal plane block with an anticipated laparoscopic ventral incisional herniorrhaphy. Because of the amount of surgery that she is already had her peritoneum has been disrupted at several locations now several times and I do not perceive that a retrorectus space will be available. Anticipate a pome procedure. She is aware of the technique, benefit, risk, alternatives. I anticipate having to inspect and possibly if sect at the bladder level. Wide coverage of the midline and left mid lower quadrant abdomen bone area will be required because of her previous parastomal hernia and incision in that location as well. She has had an opportunity to ask and have questions answered. She is aware of the technique, benefit, risk, alternatives. We will schedule procedure at her discretion. Copy: Dr. Shawanda Waddell M.D., F.A.C.S. I have examined the patient and the H&P has been reviewed. There are no clinical changes since date of exam. Fernando Waddell M.D., F.A.C.S.
--- NOTE | 2023-09-19 11:52 | DCINST_ITS ---
Discharge Instructions Procedure General Surgery Diet Discharge Diet: Light diet - advance as tolerated (if you have questions about your diet instructions, please talk to you doctor.) Activity Discharge Activity: May Not Drive (for 3-5 days or while taking narcotic pain medicine.) May shower in (days): 1 Lifting Restrictions: 10 pounds Dressing / Incision Call your doctor if your incision/area has: Continuous Slow Oozing, Sudden Increased Bleeding, Increased Pain/ Swelling, Increased Redness and Foul Smelling Discharge Call your doctor if you observe: Fever of 101 or Higher Suture Line Care: Avoid Pulling/Pushing and Avoid Pinching/Bending Additional Dressing/Incision Instructions:: Change or remove dressing in 1 days. Leave steri-strips in place for 1 week. Follow Up Care Please Follow Up With: Fernando Waddell MD When: Call [phone] to make an appointment to be seen in about 10 days. Test Results: Test results from this visit will be discussed in further detail at your follow- up appointment, if applicable. Discharge Plan Admission Admit Date/Time: 09/19/23 16:09 Attending Provider: Fernando Waddell Primary Care Provider: Shawanda Shields Discharge Orders/Prescriptions Prescriptions: New metronidazole 500 mg tablet 500 mg PO Q8H Qty: 6 0RF neomycin 500 mg tablet 500 mg PO Q6H Qty: 6 0RF No Action fluoxetine 20 mg capsule 20 mg PO DAILY Rx Instructions: take 1 capsule by mouth once daily omeprazole 20 mg capsule,delayed release(DR/EC) See Rx Instructions .ROUTE .COMPLEX Qty: 90 0RF Dose Instruction: take 1 capsule by mouth once daily Rx Instructions: take 1 capsule by mouth once daily Referrals / Follow Up: Shawanda Shields MD [Primary Care Provider] -
[2023-09-19] MEDS: Cefazolin 2 GM in 0.9% Normal Saline (100mL Bag) 100 ML IV (12:05)
[2023-09-19] MEDS: Bupivacaine 0.25% 30 ML Vial ×2 (15:50→15:51)
[2023-09-19] MEDS: 0.9% Saline Lock 10 ML Syringe IV (15:50)
[2023-09-19] MEDS: BUPIVACAINE LIPOSOME/PF 20 ML VIAL OPERA.SITE (15:50)
--- NOTE | 2023-09-19 16:00 | OP.PCM_ITS ---
Report of Operation Date of Procedure: 09/19/23 Pre-Operative Diagnosis: Complex multiple defect ventral incisional hernias. L argest defect 5 cm in diameter however a total of at least 5 additional defects. Separate defect repaired with [address] mesh for a 3.5 cm defect Post-Operative Diagnosis: Complex multiple defect ventral incisional hernias. Largest defect 5 cm in diameter however a total of at least 5 additional defects. Length of defect area was 28 cm and this represents a recurrence from the patient's previous surgery Separate defect repaired with [address] mesh for a 3.5 cm defect Extensive intra-abdominal adhesions to the anterior abdominal wall Surgery/Procedure Performed:: Laparoscopic IPOM ventral incisional herniorrhaphies with Ventralight ST mesh 25.4 x 20.3 cm, additional laparoscopic placement of a [address] mesh Extensive laparoscopic lysis of adhesions greater than 1 hour Laparoscopic bilateral transverses abdominal plane block Description of Surgical Findings:: Timeout informed consent was obtained. 52-year-old female was taken to the operating placed on the table underwent general and tracheal ovation esthesia Ancef 2 g were given intravenously. Jain catheter was placed to decompress the urinary bladder. The abdomen sterilely prepped and draped Ioban draping was utilized as well. Throughout the procedure 20 cc of Exparel mixed with 60 cc of 0.25% Marcaine diluted to 100 cc with saline. Skin sites were Jocelin size. Local was instilled a supraumbilical vertical incision was created sharp dissected down through the subcutaneous show at the site of the palpable hernia access was gained to the abdomen and Hurt catheter was placed the abdomen was inflated with CO2 to a pressure of 10 mmHg pressure 10 m scope inserted there was evidence of extensive adhesions of the omentum to the anterior abdominal wall extending almost from the callus forming inferiorly toward into the pelvis. Three 5 mm ports eventually placed on the left mid abdomen and upper quadrant and two 5 mm trocars were placed on the right tediously blunt dissection and harmonic scalpel dissection was used to gradually freed these extensive adhesions to the anterior abdominal wall. The peritoneum inferiorly once incised and the bladder was mobilized to get access to the pubic tubercle was the urinary bladder was further mobilized. This took over an hour of adhesiolysis. Having achieved that then I placed a corner stitches into a 25.4 x 20.[address] mesh. Curled that up was placed in the abdomen irrigated with water so it would not stick placed the mesh so that the tongue was just inferior to the pubic tubercle secured that in place with the parachuting sutures of the 2-0 Prolene added several EXTR transfascial sutures inferiorly in the midline of interrupted 2-0 Prolene to assure good fixation. The edges and central portions of mass were then secured with secure strap. I felt that I had excellent positioning and coverage of the multiple defects that involve the anterior abdominal wall the largest being suprapubically measuring at least 5 cm diameter several of the others measured 2-1/2 cm in diameter and then the more superior 1 was 3 and half centimeters in diameter. Unfortunate with this largest piece of mesh that we had it would not cover the superior defect so after securing that I then used a [address] mesh which I inserted and the abdomen used a grainy needle to pull that up to the anterior abdominal wall at 4 corners used 2-0 Prolene to fixate that mesh and then 4 separate 2-0 Prolene transfascial stitches to secure the Ventralex ST max to the Ventralight ST mesh superiorly. I felt that I had excellent coverage of all defect areas and good securement of the mesh. I then performed a bilateral transversus abdominal plane block with the local under laparoscopic visualization. Operation was quite tedious and timely to get all of this achieved. There was no bowel injury. The greater omentum was placed overlying the small bowel and the greater omentum was carefully placed down in the pelvic area. Sponge and instrument and needle counts were reported to surgically correct. Blood loss was minimal. Specimens none. Drains none. The patient was taken to the recovery room in satisfied condition. Fernando Waddell M.D., F.A.C.S. Surgeon: Fernando Waddell Type of Anesthesia: Block,Regional and General Anesthesiologist: Enrique Rodas
[2023-09-19] MEDS: oxyCODONE 5 MG Tablet PO (18:55)
[2023-09-19] MEDS: HYDROmorphone 0.5 MG/0.5 ML SYRINGE IV (21:28)
[2023-09-20 00:46] VITALS: BP 124/72; PULSE 78; RESP 16; TEMP 36.6; O2SAT 99
[2023-09-20] MEDS: oxyCODONE 5 MG Tablet PO ×5 (01:37→21:06)
[2023-09-20 04:46] VITALS: BP 113/71; PULSE 84; RESP 16; TEMP 36.7; O2SAT 94
--- NOTE | 2023-09-20 05:46 | PN.SURG_ITS ---
Subjective Subjective And is sore but otherwise doing well. No flatus. No nausea. Objective Data Objective Data Vital Signs: Vital Signs Temp Pulse Resp BP Pulse Ox O2 Del Method O2 Flow Rate 98.1 F 84 16 113/71 94 Room Air 2 09/20/23 04:46 09/20/23 04:46 09/20/23 04:46 09/20/23 04:46 09/20/23 04:46 09/20/23 04:46 09/20/23 00:46 Oxygen Flow Rate (L/min) 2 Oxygen Delivery Method Room Air Weight: 176 lb 12.8 oz Body Mass Index (BMI) 30.3 Intake & Output: Intake and Output for Last 24 Hours 09/18/23 09/19/23 09/20/23 23:59 23:59 23:59 Intake Total 2588.67 / 2588.67 Output Total 275 / 475 200 / 200 Balance 2313.67 / 2113.67 -200 / -200 Lab / Micro Data 09/15/23 15:52 09/15/23 15:52 Labs: Laboratory Results - last 24 hr 09/19/23 09:16: POC Glucose 102 Physical Exam Const oriented x3 GI GI Narrative: Multiple abdominal dressings dry and intact. Abdominal binder in place. Occasional bowel sounds noted. Appropriately diffusely tender. Assessment & Plan Assessment/Plan (1) Ventral hernia: QUALIFIERS: Obstruction and gangrene presence: without obstruction or gangrene Qualified Code(s): K43.9 - Ventral hernia without obstruction or ga ngrene PLAN: Multiple ventral incisional hernias which are recurrent. Treated with extensive laparoscopic lysis of adhesions extensive IPOM mesh placement. Will initiate clear liquids. Mobilization and use of I-S encouraged. Patient has eventual venous compression devices in place and subcu heparin will be initiated today. Discharge plans pending patient progress Fenrando Waddell M.D., F.A.C.S.
[2023-09-20] MEDS: Acetaminophen 500 MG Tablet 1000 MG PO ×3 (05:49→20:58)
[2023-09-20 07:30] VITALS: BP 124/86; PULSE 80; RESP 18; TEMP 36.4; O2SAT 98
[2023-09-20] MEDS: HYDROmorphone 0.5 MG/0.5 ML SYRINGE IV ×2 (07:40→11:46)
[2023-09-20] MEDS: 0.9% Saline Lock 10 ML Syringe IV ×2 (07:41→17:19)
[2023-09-20 07:42] VITALS: RESP 18
[2023-09-20 08:34] LABS: Hematocrit 42.6 % (37-47); Hemoglobin 13.1 g/dL (12.0-15.0); Mean Corp Hgb Conc 30.8 g/dL (32-36); Mean Corpuscular Hgb 24.9 pg (27.0-32.0); Mean Corpuscular Volume 80.8 fL (81-99); Mean Platelet Vol. 9.8 fl (6.2-12.0); Platelet Count 318 K/mm3 (150-450); RBC Distribution Width CV 14.6 % (11.6-14.6); RBC Distribution Width SD 42.5 fl (35.1-43.9); Red Blood Count 5.27 M/mm3 (4.2-5.4); White Blood Count 15.6 K/mm3 (4.4-11.0)
[2023-09-20] MEDS: Pantoprazole Sodium 20 MG Tablet PO (10:22)
[2023-09-20] MEDS: Enoxaparin 40 MG/0.4 ML Syringe SC (10:23)
[2023-09-20] MEDS: Docusate Sodium 100 MG Capsule PO ×2 (10:23→21:06)
[2023-09-20] MEDS: FLUoxetine 20 MG Capsule PO (10:23)
[2023-09-20] MEDS: Ensure Plus High Protein 120 ML LIQUID PO (10:25)
[2023-09-20 15:18] VITALS: BP 136/86; PULSE 74; RESP 18; TEMP 36.8; O2SAT 98
--- NOTE | 2023-09-20 16:27 | PN.SURG_ITS ---
Subjective Subjective Tolerating liquids, very sore, no flatus, no nausea, voiding well Objective Data Objective Data Vital Signs: Vital Signs Temp Pulse Resp BP Pulse Ox O2 Del Method O2 Flow Rate 98.3 F 74 18 136/86 H 98 Nasal Cannula 2 09/20/23 15:18 09/20/23 15:18 09/20/23 15:18 09/20/23 15:18 09/20/23 15:18 09/20/23 15:22 09/20/23 15:22 Oxygen Flow Rate (L/min) 2 Oxygen Delivery Method Nasal Cannula Weight: 176 lb 12.8 oz Body Mass Index (BMI) 30.3 Intake & Output: Intake and Output for Last 24 Hours 09/18/23 09/19/23 09/20/23 23:59 23:59 23:59 Intake Total 2690.67 / 2690.67 755.33 / 755.33 Output Total 275 / 475 801 / 801 Balance 2415.67 / 2215.67 -45.67 / -45.67 Lab / Micro Data 09/20/23 08:00 09/15/23 15:52 Labs: Laboratory Results - last 24 hr 09/20/23 08:00: WBC 15.6 H, RBC 5.27, Hgb 13.1, Hct 42.6, MCV 80.8 L, MCH 24.9 L , MCHC 30.8 L, RDW Std Deviation 42.5, RDW Coeff of Shelton 14.6, Plt Count 318, MPV 9.8 Physical Exam GI GI Narrative: distended, diffusely tender Assessment & Plan Assessment/Plan (1) Ventral hernia: QUALIFIERS: Obstruction and gangrene presence: without obstruction or gangrene Qualified Code(s): K43.9 - Ventral hernia without obstruction or g angrene PLAN: Post op pain from ventral hernias repair Will initiate NSAID
[2023-09-20] MEDS: SimETHICONE 80 MG Chewable Tablet PO (17:18)
[2023-09-20] MEDS: Ketorolac 30 MG/ML Syringe IV (17:19)
[2023-09-20 20:47] VITALS: BP 113/72; PULSE 69; RESP 18; TEMP 36.6; O2SAT 94
[2023-09-20] MEDS: LORazepam 0.5 MG Tablet PO (21:06)
[2023-09-21] MEDS: Acetaminophen 500 MG Tablet 1000 MG PO ×4 (00:30→21:16)
[2023-09-21 03:20] VITALS: BP 128/81; PULSE 63; RESP 18; TEMP 36.5; O2SAT 94
[2023-09-21] MEDS: oxyCODONE 5 MG Tablet PO ×4 (03:33→19:49)
[2023-09-21 04:53] LABS: Absolute Neutrophil Count 5.8 X10^3/uL (2.0-7.7); Basophil# 0.05 X10^3/uL; Basophil% 0.6 % (0-1); Eosinophil# 0.06 X10^3/uL; Eosinophils% 0.7 % (0-5); Hematocrit 37.2 % (37-47); Hemoglobin 11.6 g/dL (12.0-15.0); Lymphocyte % 27.6 % (19-41); Mean Corp Hgb Conc 31.2 g/dL (32-36); Mean Corpuscular Hgb 25.2 pg (27.0-32.0); Mean Corpuscular Volume 80.9 fL (81-99); Monocyte# 0.63 X10^3/uL; NRBC Flagged by Analyzer 0 % (0-5); Neutrophil # 5.79 X10^3/uL (2.7-7.7); Neutrophil % 63.8 % (47-70); Platelet Count 243 K/mm3 (150-450); RBC Distribution Width SD 43.7 fl (35.1-43.9); White Blood Count 9.1 K/mm3 (4.4-11.0)
--- NOTE | 2023-09-21 05:56 | PN.SURG_ITS ---
Subjective Subjective No flatus. No nausea. Patient still uncomfortable but improved with the addition of Toradol and lorazepam. She is not moving well in the halls yet. Voiding easily. Objective Data Objective Data Vital Signs: Vital Signs Temp Pulse Resp BP Pulse Ox O2 Del Method O2 Flow Rate 97.7 F L 63 18 128/81 H 94 Room Air 2 09/21/23 03:20 09/21/23 03:20 09/21/23 03:20 09/21/23 03:20 09/21/23 03:20 09/21/23 03:20 09/20/23 15:22 Oxygen Flow Rate (L/min) 2 Oxygen Delivery Method Room Air Weight: 176 lb 12.8 oz Body Mass Index (BMI) 30.3 Intake & Output: Intake and Output for Last 24 Hours 09/19/23 09/20/23 09/21/23 23:59 23:59 23:59 Intake Total 2690.67 / 2690.67 755.33 / 1255.33 500 / 500 Output Total 275 / 475 801 / 801 Balance 2415.67 / 2215.67 -45.67 / 454.33 500 / 500 Lab / Micro Data 09/21/23 04:15 09/15/23 15:52 Labs: Laboratory Results - last 24 hr 09/20/23 08:00: WBC 15.6 H, RBC 5.27, Hgb 13.1, Hct 42.6, MCV 80.8 L, MCH 24.9 L , MCHC 30.8 L, RDW Std Deviation 42.5, RDW Coeff of Shel[place] 14.6, Plt Count 318, MPV 9.8 09/21/23 04:15: WBC 9.1, RBC 4.60, Hgb 11.6 L, Hct 37.2, MCV 80.9 L, MCH 25.2 L, MCHC 31.2 L, RDW Std Deviation 43.7, RDW Coeff of [place] 15.0 H, Plt Count 243, MPV 10.0, Immature Gran % (Auto) 0.300, Neut % (Auto) 63.8, Lymph % (Auto) 27.6, Pierce % (Auto) 7.0, Eos % (Auto) 0.7, Baso % (Auto) 0.6, Absolute Neuts (auto) 5.8, Absolute Lymphs (auto) 2.50, Nucleated RBC % 0 Physical Exam Const oriented x3 Resp Resp Narrative: Diminished respiratory excursion Cardio regular rate GI GI Narrative: Soft, distended, dressings clean and dry Assessment & Plan Assessment/Plan (1) Ventral hernia: QUALIFIERS: Obstruction and gangrene presence: without obstruction or gangrene Qualified Code(s): K43.9 - Ventral hernia without obstruction or gangrene PLAN: Slow progress noted. I can vigorously encouraged the patient to ambulate and work on her I-S. Having instructed her to release the abdominal binder intermittently particularly when resting supine to allow her better respirations. She is on Lovenox and SCUDs for DVT prophylaxis. I have encouraged ambulation and working of her feet. She has not yet had any flatus. I will advance to a transitional diet. Not ready this morning for discharge. Fernando Waddell M.D., F.A.C.S.
[2023-09-21] MEDS: Ketorolac 10 MG Tablet PO ×2 (06:17→17:58)
[2023-09-21 07:54] VITALS: O2SAT 95
[2023-09-21 09:23] VITALS: BP 123/78; PULSE 72; RESP 18; TEMP 36.4; O2SAT 94
[2023-09-21] MEDS: Enoxaparin 40 MG/0.4 ML Syringe SC (09:28)
[2023-09-21] MEDS: Docusate Sodium 100 MG Capsule PO ×2 (09:28→21:16)
[2023-09-21] MEDS: Pantoprazole Sodium 20 MG Tablet PO (09:29)
[2023-09-21] MEDS: FLUoxetine 20 MG Capsule PO (09:29)
[2023-09-21 14:36] VITALS: BP 115/73; PULSE 77; RESP 18; TEMP 36.9; O2SAT 95
--- NOTE | 2023-09-21 17:30 | DS.PCM_ITS ---
Documented by User: Elisa ALFARO PA-C 09/26/23 11:01 Providers Date of Admission: 09/19/23 Primary Care Physician: Dr. Shawanda Shields MD Reason For Visit: ERAS, Hernia, Lap bilateral incisional Ventral Rep Diagnosis Discharge Diagnosis (1) Ventral hernia: Status: Acute Code(s): K43.9 - Ventral hernia without obstruction or gangrene Qualifiers: Obstruction and gangrene presence: without obstruction or gangrene Qualified Code(s): K43.9 - Ventral hernia without obstruction or gangrene (2) Intra-abdominal adhesions: Status: Acute Code(s): K66.0 - Peritoneal adhesions (postprocedural) (postinfection) Medications at Discharge Home Medications fluoxetine 20 mg capsule 20 mg PO DAILY ANXIETY 06/06/23 omeprazole 20 mg capsule,delayed release See Rx Instructions .Route .COMPLEX #90 caps 09/19/23 oxycodone 5 mg tablet 5 - 10 mg (1 - 2 x 5 mg) PO Q4H PRN PRN Pain Score 4-10 3 days #15 tabs 09/22/23 Hospital Course Operations - (Laparoscopic IPOM ventral incisional herniorrhaphies with Ventralight ST mesh 25.4 x 20.3 cm, additional laparoscopic placement of a [address] mesh Extensive laparoscopic lysis of adhesions greater than 1 hour. Laparoscopic bilateral transverses abdominal plane block) Summary of Care Provided Minutes Spent on Discharge: 20 Hospital Course: The patient was admitted and underwent a laparoscopic lysis of adhesions with laparoscopic ventral incisional hernia repairs with 2 different pieces of mesh [address] and 1 Ventralex on 09/19/[address] Waddell. A laparoscopic bilateral tap block was performed. Postoperatively she had discomfort requiring oral and IV pain medication. By September 22, 2023 however she had resumption of bowel function and now was only on oral medication and made sufficient recovery to allow for discharge. Physical Exam GI GI Narrative: Abdomen- less distended, slight diffuse tenderness. Bowel sounds present. Weight / BMI Weight Weight: 176 lb 12.8 oz Body Mass Index (BMI) 30.3 ABG / Lab / Microbiology Data 09/21/23 04:15 09/15/23 15:52 Laboratory: Laboratory Results - last 24 hr 09/21/23 04:15: WBC 9.1, RBC 4.60, Hgb 11.6 L, Hct 37.2, MCV 80.9 L, MCH 25.2 L, MCHC 31.2 L, RDW Std Deviation 43.7, RDW Coeff of Shelton 15.0 H, Plt Count 243, MPV 10.0, Immature Gran % (Auto) 0.300, Neut % (Auto) 63.8, Lymph % (Auto) 27.6, [place] % (Auto) 7.0, Eos % (Auto) 0.7, Baso % (Auto) 0.6, Absolute Neuts (auto) 5.8, Absolute Lymphs (auto) 2.50, Nucleated RBC % 0 D/C Instructions Discharge Diet: Light diet - advance as tolerated (if you have questions about your diet instructions, please talk to you doctor.) May shower in (days): 1 Call your doctor if your incision/area has: Continuous Slow Oozing, Sudden Increased Bleeding, Increased Pain/ Swelling, Increased Redness and Foul Smelling Discharge Call your doctor if you observe: Fever of 101 or Higher Suture Line Care: Avoid Pulling/Pushing and Avoid Pinching/Bending Additional Dressing/Incision Instructions: Change or remove dressing in 4 days. Leave steri-strips in place for 1 week. Please Follow Up With: Fernando Waddell MD When: Call [phone] to make an appointment to be seen in about 10 days. Discharge Plan Admission Admit Date/Time: 09/19/23 16:09 Attending Provider: Fernando Waddell Primary Care Provider: Shawanda Shields Discharge Orders/Prescriptions Prescriptions: New oxycodone 5 mg Tablet 5 - 10 mg PO Q4H PRN PRN (Reason: Pain Score 4-10) 3 Days Qty: 15 0RF Continued fluoxetine 20 mg capsule 20 mg PO DAILY Rx Instructions: take 1 capsule by mouth once daily omeprazole 20 mg capsule,delayed release(DR/EC) See Rx Instructions .ROUTE .COMPLEX Qty: 90 0RF Dose Instruction: take 1 capsule by mouth once daily Rx Instructions: take 1 capsule by mouth once daily Referrals / Follow Up: Shawanda Shields MD [Primary Care Provider] - Disposition Disposition (needs filled in before D/C Order can be placed): Home, Self Care Charges/Coding Visit Charges Inpatient E&M: 94105 Disch Hosp (No charge) Documented by User: Dr. Fernando Waddell MD 09/22/23 06:10 Providers Date of Admission: 09/19/23 Reason For Visit: ERAS, Hernia, Lap bilateral incisional Ventral Rep Diagnosis Discharge Diagnosis (1) Ventral hernia: Status: Acute Code(s): K43.9 - Ventral hernia without obstruction or gangrene Qualifiers: Obstruction and gangrene presence: without obstruction or gangrene Qualified Code(s): K43.9 - Ventral hernia without obstruction or gangrene (2) Intra-abdominal adhesions: Status: Acute Code(s): K66.0 - Peritoneal adhesions (postprocedural) (postinfection) Medications at Discharge Home Medications fluoxetine 20 mg capsule 20 mg PO DAILY ANXIETY 06/06/23 omeprazole 20 mg capsule,delayed release See Rx Instructions .Route .COMPLEX #90 caps 09/19/23 oxycodone 5 mg tablet 5 - 10 mg (1 - 2 x 5 mg) PO Q4H PRN PRN Pain Score 4-10 3 days #15 tabs 09/22/23 Hospital Course Summary of Care Provided Hospital Course: The patient was admitted and underwent a laparoscopic lysis of adhesions with laparoscopic ventral incisional hernia repairs with 2 different pieces of mesh [address] and 1 Ventralex. A laparoscopic bilateral tap block was performed. Postoperatively she had discomfort requiring oral and IV pain m edication. By September 22, 2023 however she had resumption of bowel function and now was only on oral medication and made sufficient recovery to allow for discharge. ABG / Lab / Microbiology Data 09/21/23 04:15 09/15/23 15:52 Meaningful Use Info Meaningful Use Diagnoses (Choose all that apply): None applicable Discharge Plan Admission Admit Date/Time: 09/19/23 16:09 Attending Provider: Fernando Waddell Primary Care Provider: Shawanda Shields Discharge Orders/Prescriptions Prescriptions: New oxycodone 5 mg Tablet 5 - 10 mg PO Q4H PRN PRN (Reason: Pain Score 4-10) 3 Days Qty: 15 0RF Continued fluoxetine 20 mg capsule 20 mg PO DAILY Rx Instructions: take 1 capsule by mouth once daily omeprazole 20 mg capsule,delayed release(DR/EC) See Rx Instructions .ROUTE .COMPLEX Qty: 90 0RF Dose Instruction: take 1 capsule by mouth once daily Rx Instructions: take 1 capsule by mouth once daily Referrals / Follow Up: Shawanda Shields MD [Primary Care Provider] - Disposition Disposition (needs filled in before D/C Order can be placed): Home, Self Care
[2023-09-21 21:19] VITALS: BP 125/80; PULSE 79; RESP 16; TEMP 36.7; O2SAT 94
[2023-09-22] MEDS: Acetaminophen 500 MG Tablet 1000 MG PO ×2 (00:42→05:32)
[2023-09-22] MEDS: oxyCODONE 5 MG Tablet PO ×2 (00:45→08:33)
[2023-09-22 00:47] VITALS: BP 123/82; PULSE 69; RESP 16; TEMP 36.6; O2SAT 94
[2023-09-22] MEDS: Ketorolac 10 MG Tablet PO (04:03)
[2023-09-22 04:06] VITALS: BP 139/77; PULSE 65; RESP 16; TEMP 36.5; O2SAT 97
--- NOTE | 2023-09-22 06:01 | PCM.PN.SRG ---
Subjective Subjective Noted and improved today. She has had several bowel movements. Less abdominal pressure. Less abdominal pain. Her discomfort is being managed with oral medication. Objective Data Objective Data Vital Signs: Vital Signs Temp Pulse Resp BP Pulse Ox O2 Del Method O2 Flow Rate 97.7 F L 65 16 139/77 H 97 Room Air 2 09/22/23 04:06 09/22/23 04:06 09/22/23 04:06 09/22/23 04:06 09/22/23 04:06 09/22/23 04:06 09/20/23 15:22 Oxygen Flow Rate (L/min) 2 Oxygen Delivery Method Room Air Weight: 176 lb 12.8 oz Body Mass Index (BMI) 30.3 Intake & Output: Intake and Output for Last 24 Hours 09/20/23 09/21/23 09/22/23 23:59 23:59 23:59 Intake Total 755.33 / 1255.33 1400 / 1700 300 / 300 Output Total 801 / 801 Balance -45.67 / 454.33 1400 / 1700 300 / 300 Lab / Micro Data 09/21/23 04:15 09/15/23 15:52 Physical Exam GI GI Narrative: Soft, bowel sounds present, dressings clean and dry, diminished diffuse tenderness Assessment & Plan Assessment/Plan (1) Ventral hernia: QUALIFIERS: Obstruction and gangrene presence: without obstruction or gangrene Qualified Code(s): K43.9 - Ventral hernia without obstruction or gangrene PLAN: Patient now is ready for discharge. Pain management controlled with oral medication and return of bowel function. Fernando Waddell M.D., F.A.C.S.
[2023-09-22 08:23] VITALS: BP 128/85; PULSE 67; RESP 18; TEMP 36.6; O2SAT 96
[2023-09-22] MEDS: Pantoprazole Sodium 20 MG Tablet PO (08:33)
[2023-09-22] MEDS: Docusate Sodium 100 MG Capsule PO (08:33)
[2023-09-22] MEDS: FLUoxetine 20 MG Capsule PO (08:33)
--- NOTE | 2023-09-22 09:26 | CASEMGMT ---
KAVON BRADSHAW NOTE: Pt being discharged home. RN CM to room. Pt sitting up in chair. @ bedside. Pt denies having any discharge planning needs/concerns. Leena LAMBERTN KAVON CM
== END 2023-09-22 09:48 | disposition home or self-care (01) ==
LOC: MS3 09-20 08:42 → SDC 09-20 08:43 → MS3 09-20 09:03
PROVIDERS: Physician Assistant; Admitting Provider Surgery; PCP Internal Medicine; Referring Provider Internal Medicine; Visit Provider Surgery
PROC: 0WQF4ZZ Repair Abdominal Wall, Percutaneous Endoscopic Approach (ICD-10-PCS; CPT 49617; principal; 2023-09-19 10:40)
DX: K43.2 Incisional hernia without obstruction or gangrene (principal); D68.51 Activated protein C resistance; Z87.891 Personal history of nicotine dependence; K66.0 Peritoneal adhesions (postprocedural) (postinfection); K76.0 Fatty (change of) liver, not elsewhere classified; Z79.899 Other long term (current) drug therapy; R79.1 Abnormal coagulation profile; K44.9 Diaphragmatic hernia without obstruction or gangrene; K21.9 Gastro-esophageal reflux disease without esophagitis
CPT/HCPCS: 49617; 49329; 00832; 36415; 80048; 82962; 83735; 85025; 85027; 94668; 96372; 96374; 96375; 96376; 99221; J7120; A4216; C1781; G0378; J2405; J3475

== ENCOUNTER → 2023-12-05 | Outpatient (CLI) | payer OTHER, SELFPAY ==
[2023-12-05 17:04] LABS: Ferritin 14 ng/mL (8-252); Iron 33 ug/dL (50-170); Iron Binding Capacity,Total 409 ug/dL (250-450)
== END | disposition home or self-care (01) ==
LOC: BIMLAB 15:45
PROVIDERS: PCP Internal Medicine; Visit Provider Internal Medicine
DX: E61.1 Iron deficiency (principal)
CPT/HCPCS: 36415; 82728; 83540; 83550

== ENCOUNTER 2023-12-18 08:52 | Emergency (ER) | payer OTHER, SELFPAY ==
[2023-12-18 08:52] VITALS: BP 149/93; PULSE 70; RESP 16; TEMP 36.4; O2SAT 99; BMI 30.9
--- NOTE | 2023-12-18 09:00 | RAD_ITS ---
INDICATION: INJURY EXAMINATION/TECHNIQUE: X-RAY - LEFT XR Wrist Min 3 Views 3 VIEWS COMPARISON: No relevant prior comparison study available FINDINGS: SOFT TISSUES: No soft tissue swelling or gas. No radiopaque foreign body. BONES/JOINTS: Probable hairline nondisplaced fracture of the lateral aspect of the distal radius. Normal alignment. Preservation of the joint space.. No sclerotic or destructive changes observed. RAD/Wrist min 3 Views IMPRESSION: Probable hairline nondisplaced fracture of the distal radius. Electronically Signed: Alex José MD at 9:16 EDT ,
--- NOTE | 2023-12-18 09:40 | EX.ED.UPPERE ---
HPI History of Present Illness Chief Complaint: Upper Extremity Injury Informant: patient Narrative Narrative: Patient tripped and fell in a hole in a parking lot last night on that left outstretched hand. She is right-hand dominant. She sustained an abrasion to the palm and pain in her wrist ever since. She having trouble moving it as a result. No other injuries. [facility] Medical History Abnormal Pap smear of cervix Anal or rectal pain Arthritis Colostomy in place COVID-19 vaccine series completed Dermatitis Former smoker Frequent headaches Gastric reflux Heterozygous factor V Leiden mutation History of diverticulitis History of hiatal hernia History of stress test Iron deficiency Lung nodule seen on imaging study Mood swings Multiple joint pain Obesity (BMI 30-39.9) Osteoarthritis of carpometacarpal joint of right thumb Pain of right thumb Restless leg Shortness of breath on exertion Vapes nicotine containing substance Wears glasses Home Medications fluoxetine 20 mg capsule 20 mg PO DAILY ANXIETY #60 caps 11/22/23 [Rx Last Taken Unknown] ferrous sulfate 325 mg (65 mg iron) tablet 325 mg PO Q OTHER DAY #90 tabs 12/05/23 [Rx Last Taken Unknown] gabapentin 100 mg capsule 100 mg PO TID #90 caps 12/05/23 [Rx Last Taken Unknown] triamcinolone acetonide 0.1 % topical cream 1 applic topical BID PRN rash #80 grams 12/05/23 [Rx Last Taken Unknown] omeprazole 20 mg capsule,delayed release See Rx Instructions .Route .COMPLEX #90 caps 12/12/23 [Rx Last Taken Unknown] bupropion HCl 100 mg tablet,12 hr sustained-release (Wellbutrin SR) 100 mg PO BID #60 ea 12/16/23 [Rx Last Taken Unknown] naltrexone 50 mg tablet 25 mg (1/2 x 50 mg) PO DAILY #30 tabs 12/16/23 [Rx Last Taken Unknown] Allergy/AdvReac Type Severity Reaction Status Date / Time Opioids - Morphine Analogues Allergy Severe passed out Verified 12/18/23 08:54 Family History Mother Arthritis Father Heart disease Hypertension Hypercholesteremia Myocardial infarction Blood clot in vein Diabetes Brother Heart disease Surgical History History of colonoscopy History of open sigmoidectomy Hx of tubal ligation S/P hernia repair S/P laparoscopic cholecystectomy S/P LEEP Status post colostomy takedown Status post Kira procedure Social History Smoking Status: Current every day smoker tobacco type: cigarettes Tobacco: How many years used: 25 how long ago did patient quit smoking: couple packs per week x 25 years second hand exposure: No alcohol intake: current alcohol intake frequency: a few times a month Alcohol type: wine substance use type: does not use caffeine: Yes what type of physical activity do you participate in: walking frequency: 1-2 times per week duration: 30-45 minutes/day seatbelt use: always do you feel safe at home: Yes additional 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 works at [employer] ROS ROS ED Constitutional Constitutional ED: Denies chills or fever(s) Musculoskeletal Musculoskeletal: Reports extremity pain; Denies neck pain Integumentary Denies Abrasions, rash or wounds Neurologic Neurologic: Denies paresthesias or weakness EXAM Physical Exam Const Vital Signs: 12/18/23 08:52 Temperature 97.6 F L Temperature Source Temporal Pulse Rate 70 Respiratory Rate 16 Blood Pressure 149/93 H Blood Pressure Mean 111 Pulse Ox 99 Oxygen Delivery Method Room Air Positive well nourished and well developed General Appearance ED: well developed and NAD Neck full ROM and supple Back/Spine normal ROM and normal to inspection Extremity Extremity Narrative: Left wrist: Limited range of motion due to pain. This includes supination and pronation. Tender mild distal radius and at the scaphoid with increased pain with axial loading of the thumb. Also some distal radius tenderness. No deformities. No other areas of tenderness in the left upper extremity. Neuro oriented x3, no focal motor deficits and no sensory deficits noted Sensorium / Orientation: alert Psych mental status grossly normal and thought process normal Skin no wounds Rashes: no rashes MDM MDM MDM Narrative Medical decision making narrative: Three-view x-ray of the left wrist on my interpretation shows what appears to be a nondisplaced fracture to the distal radius. Radiology is in agreement. I reviewed the report. There is not appear to be an obvious fracture of the scaphoid but clinically I am concerned about this. For this reason I am putting in her in a thumb spica splint. Offered analgesics she declined, she is okay using ice, ibuprofen, Tylenol, I advise close outpatient follow-up with orthopedics and we discussed the management of an occult scaphoid fracture and clinical results if it is present and ignored. Radiography Diagnostic Testing: Clinical Impression(s) from Imaging Studies Wrist X-Ray 12/18/23 09:00 IMPRESSION: Probable hairline nondisplaced fracture of the distal radius. Electronically Signed: Alex José MD at 9:16 EDT , Discharge Plan Triage Chief Complaint: Upper Extremity Injury ED Provider: Zenon King Dx/Rx/DC Orders Clinical Impression: Closed traumatic nondisplaced fracture of distal end of left radius Instructions: Distal Radius Fx Prescriptions: No Action triamcinolone acetonide 0.1 % cream 1 applic topical BID PRN (Reason: rash) Qty: 80 1RF gabapentin 100 mg capsule 100 mg PO TID Qty: 90 2RF ferrous sulfate 325 mg (65 mg iron) tablet 325 mg PO Q OTHER DAY Qty: 90 1RF fluoxetine 20 mg capsule 20 mg PO DAILY Qty: 60 0RF Rx Instructions: take 1 capsule by mouth once daily omeprazole 20 mg capsule,delayed release(DR/EC) See Rx Instructions .ROUTE .COMPLEX Qty: 90 1RF Dose Instruction: take 1 capsule by mouth once daily Rx Instructions: take 1 capsule by mouth once daily naltrexone 50 mg tablet 25 mg PO DAILY Qty: 30 0RF Rx Instructions: Take 1/2 tablet daily bupropion HCl [Wellbutrin SR] 100 mg tablet sustained-release 12 hr 100 mg PO BID Qty: 60 1RF Rx Instructions: Take 100 mg daily x 2 weeks then increase to BID Primary Care Provider: Shawanda Shields Referrals: Shawanda Shields MD [Primary Care Provider] - Marvin Virk DO [Med Staff - Active Staff] - 3-5 Days Activity Restrictions/Additional Instructions: Wear the splint at all times except to bathe/shower. Disposition Disposition: Home, Self Care
== END 2023-12-18 09:56 | disposition home or self-care (01) ==
PROVIDERS: Emergency Provider Emergency Medicine; PCP Internal Medicine; Visit Provider Emergency Medicine
DX: S52.502A Unspecified fracture of the lower end of left radius, initial encounter for closed fracture (principal); W17.2XXA Fall into hole, initial encounter; Y92.481 Parking lot as the place of occurrence of the external cause; F17.210 Nicotine dependence, cigarettes, uncomplicated
CPT/HCPCS: 73110; 99283